=== PATIENT | female | born 1955 | race African-American/Black ===

== ENCOUNTER 2024-03-30 15:22 | Outpatient (CLI) | payer MEDICARE, SELFPAY ==
--- OUTSIDE RECORDS SUMMARY | 2024-03-30 15:26 | XMS_ITS | Patient Health Record ---
Author Organization [facility] Yamil martinez Billing Info Address [address] [place] [address] Support Name Relationship Address Phone Isidra Laguerre Guarantor Unknown [phone] Reason For Referral No Information Plan Of Treatment No Information Insurance Providers Payer Name Payer Address Payer Phone Subscriber Number Group Number Insured Name Patient Relationship to Insured Coverage Start Date Coverage End Date [employer] [facility] [place] [address] [address] [place], [place] [id number] Isidra Laguerre Self - patient is the insured
[2024-03-30 15:47] LABS: Basophils # 0.1 K/mm3 (0-0.2); Eosinophils # 0.3 K/mm3 (0.0-0.4); Eosinophils % 5.1 % (0.1-12.0); Hematocrit 34.5 % (37.0-47.0); Lymphocytes # 1.6 K/mm3 (0.7-4.5); Lymphocytes % 24.4 % (10-50); Mean Corpuscular HGB Conc 31.8 g/dL (31.8-35.4); Mean Corpuscular Volume 72.4 fl (81-99); Mean Platelet Volume 8.9 fl (7.4-10.4); Monocytes # 0.4 K/mm3 (0.1-1.0); Monocytes % 6.2 % (1.7-9.3); Neutrophils # 4.2 K/mm3 (1.8-7.8); Neutrophils % 63.3 % (37.0-80.0); Platelet Count 308 K/mm3 (142-424); Red Blood Count 4.76 M/mm3 (4.20-5.40); Red Cell Distribution Width 19.3 % (11.5-17.5); White Blood Count 6.7 K/mm3 (4.8-10.8)
[2024-03-30 16:34] LABS: Alanine Aminotransferase 13 U/L (12-78); Albumin Level 4.1 g/dl (3.5-5.0); Albumin/Globulin Ratio 1.6 (1.1-1.8); Alkaline Phosphatase 73 U/L (38-126); Anion Gap 12.3 mEq/L (5-15); Aspartate Amino Transferase 28 U/L (14-36); Bilirubin,Total 0.9 mg/dl (0.2-1.3); Blood Urea Nitrogen 14 mg/dl (7-17); Calcium 9.6 mg/dl (8.4-10.2); Carbon Dioxide 24 mmol/L (22.0-30.0); Chloride 109 mmol/L (98-107); Estimated Glomerular Filt Rate 83 ml/min (>60); GFR (African American) 100 ML/MIN (>60); Globulin 2.6 g/dL (1.3-3.2); Glucose 89 mg/dl (74-100); Magnesium 1.6 mg/dl (1.6-2.3); Phosphorous 4.5 mg/dl (2.5-4.5); Potassium 4.3 mmoL/L (3.5-5.1); Sodium 141 mmol/L (136-145); Total Protein,Serum 6.7 g/dl (6.3-8.2)
[2024-03-30 17:04] LABS: Thyroid Stimulating Hormone 3.26 uIU/mL (0.465-4.68)
[2024-03-30 17:23] LABS: Vitamin B12 319 pg/mL (239-931)
[2024-03-30 17:54] LABS: Iron 45 ug/dL (37-170)
[2024-03-30 18:03] LABS: Total Iron Binding Capacity 406 ug/dL (265-497)
[2024-03-31 09:19] LABS: HBsAg Screen Negative (Negative); HCV Ab Non Reactive (Non Reactive); Hep A Ab, IGM Negative (Negative); Hep B Core Ab, IgM Negative (Negative)
[2024-03-31 15:12] LABS: Endomysial IgA Antibody Negative (Negative)
[2024-03-31 16:28] LABS: Deamidated Gliadin Abs, IgA 3 units (0-19); Tissue Transglutaminase IgA Ab <2 U/mL (0-3); Tissue Transglutaminase IgG Ab <2 U/mL (0-5)
[2024-04-01 15:11] LABS: Deamidated Gliadin Abs, IgG 2 units (0-19)
[2024-04-02 09:20] LABS: Reticulin IgA Antibody Negative titer (Neg:<1:2.5)
[2024-04-11 16:04] LABS: Antinuclear Antibodies (ANA) NEGATIVE
== END 2024-03-30 23:59 | disposition home or self-care (01) ==
LOC: LAB 15:24
PROVIDERS: PCP Nurse Practitioner; Visit Provider Student in an Organized Health Care Education/Training Program
DX: K13.70 Unspecified lesions of oral mucosa (principal); D64.9 Anemia, unspecified; Z79.899 Other long term (current) drug therapy; R13.12 Dysphagia, oropharyngeal phase
CPT/HCPCS: 36415; 80053; 80074; 82607; 82746; 83516; 83540; 83550; 83735; 84100; 84443; 85025; 86038; 86225; 86235; 86255; 86256

== ENCOUNTER 2024-11-15 13:42 | Outpatient (CLI) | payer MEDICARE, SELFPAY ==
--- OUTSIDE RECORDS SUMMARY | 2024-11-15 13:45 | XMS_ITS | Clinical Summary ---
Author Organization [employer] Address [address] [place] [address] Care Team Providers Care Government Professor Name Role Phone Unavailable Primary Care Provider Unavailabl e Social History Tobacco Use Types Packs/Day Years Used Date Smoking Tobacco: Never Assessed Comments Unknown Sex and Gender Information Value Date Recorded Sex Assigned at Female 11/26/2021 5:53 PM CDT Legal Sex Female 5:53 PM CDT Gender Identity Female 11/26/2021 5:53 PM CDT Sexual Orientation Not on file Plan of Treatment Not on file
--- OUTSIDE RECORDS SUMMARY | 2024-11-15 13:45 | XMS_ITS | Clinical Summary ---
Author Organization [facility] Address [address] [place] [address] Care Team Providers Care Cementing Machine Operator Name Role Phone Cirilo Tracey MD Primary Care Provider [phone] Allergies No known active allergies Medications nitroglycerin (Nitrostat) 0.[address] 1 tablet (0.4 mg total) under the tongue every 5 (five) minutes if needed for chest pain. May repeat every 5 minutes for up to 3 doses. 100 tablet 11 2 Active diclofenac (Voltaren) 1 % topical gelIndications:Ch ronic pain of left ankle Apply 2-4 grams of gel up to three times daily as needed for pain control. 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 May repeat every 5 minutes for up to 3 doses. 300 Unspecified 11 4 Active Vibegron (Gemtesa) 75 MG tablet TAKE 1 TABLET EVERY DAY 90 tablet 4 Active cetirizine (ZyrTEC) 10 MG tabletIndications :Allergic rhinitis, unspecified seasonality, unspecified trigger Take 1 tablet (10 mg) by mouth 1 (one) time each day. 90 tablet 3 4 Active carvedilol (Coreg) 6.25 MG tablet Take 1 tablet (6.25 mg) by mouth 2 (two) times a day with meals. 60 tablet 11 4 Active lisinopril 20 MG tabletIndications :Essential hypertension Take 1 tablet (20 mg) by mouth 1 (one) time each day. 90 tablet 3 4 01/07/20 25 Active atorvastatin (Lipitor) 80 MG tablet Take 1 tablet (80 mg) by mouth every night. 90 tablet 3 4 Active aspirin 81 MG EC tablet Take 1 tablet (81 mg) by mouth 1 (one) time each day. 90 tablet 3 4 Active Active Problems Problem Noted Date Diagnosed Date At high risk for falls 08/17/2023 Hypersomnia, unspecified 03/04/2023 Hypothyroidism (acquired) 02/10/20232022 Type 2 diabetes mellitus without complications 0 12/15/2022 Pain in right knee 12/03/2022 Pain in right foot 12/03/2022 Pain in left knee 12/03/2022 Pain in left foot 12/03/2022 Urge incontinence 10/20/2022 Post-menopausal atrophic vaginitis 10/20/2022 Nocturia 10/20/2022 Urinary frequency 10/20/2022 Urinary urgency 10/20/2022 Presence of aortocoronary bypass graft 3 Old myocardial infarction 10/20/2022 Morbid (severe) obesity due to excess calories 0 10/20/2022 Pure hypercholesterolemia 09/12/2022 S/P CABG x 2 08/08/2022 Morbid obesity with body mass index (BMI) of 40. 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 06/17/2019 Gout 06/16/2019 TIA (transient ischemic attack) 05/15/2019 Posterior capsular opacifica tion visually significant, left eye 03/18/2019 Diabetes mellitus 03/02/2019 Diabetic maculopathy 01/25/2018 Status post left knee replacement 09/29/2017 Combined form of senile cataract of right eye Nuclear sclerotic cataract 09/09/2017 Polyneuropathy 07/28/2017 Obstructive sleep apnea 06/23/2017 GERD (gastroesophageal reflux disease) 7 Bursitis of hip 02/24/2017 Essential hypertension 02/20/2017 Amenorrhea, secondary 02/20/2017 Resolved Problems Problem Noted Date Diagnosed Date Resolved Date Abdominal pain 07/06/2023 07/09/2023 Overview (07/06/2023): Admit to sge PPI for possible gastritis Immunizations Immunization Administration Dates Next Due Influenza, high-dose, quadrivalent 06/05/2023, Influenza, injectable, quadr ivalent, preservative free 06/19/2020,03/02/2019,02/11/2018,02/20 Pneumococcal Polysaccharide PPV23 02/20/2017 Tdap 02/20/2017 Zoster, Recombinant 11/15/2021 Family History Medical History Relation Name Comments Colon cancer Father Arthritis Other 1 Asthma Other 2 Colon cancer Other 3 Kidney disease Other 4 Conversions - Other Other 5 malignan t neoplasm of female breast Obesity Other 6 Relation Name Status Comments Father Other 1 Other 2 Other 3 Other 4 Other 5 Other 6 Social History Tobacco Use Types Packs/Day Years Used Date Smoking Tobacco: Former Cigarettes Q uit: 2013 Passive Smoke Exposure: Never Smokeless Tobacco: Never Tobacco Cessation:Counseling Given: Not Answered Alcohol Use Standard Drinks/Week Comments Yes 0 (1 standard drink = 0.6 oz pur e alcohol) twice a month Humiliation, Afraid, Rape, and Kick questionnair e Answer Date Recorded Within the last year, have y ou been afraid of your partner or ex-partner? No 07/07/2023 Within the last year, have y ou been humiliated or emotionally abused in other ways by your partner or ex-partner? No Within the last year, have y ou been kicked, hit, slapped, or otherwise physically hurt by your partner or ex-partner? No 07/07/2023 Within the last year, have y ou been raped or forced to have any kind of sexual activity by your partner or ex-partner? No 07/07/2023 Social Connection and Isolation Panel Answer Date Recorded In a typical week, how many times do you talk on the phone with family, friends, or neighbors? More than three times a week 07/07/2023 How often do you get togethe r with friends or relatives? Twice a week 07/07/2023 How often do you attend chur or yazidi services? 1 to 4 times per year 07/07/2023 Do you belong to any clubs o r organizations such as oriental orthodox groups, unions, fraternal or athletic groups, or school groups? No 07/07/2023 How often do you attend meet ings of the clubs or organizations you belong to? 1 to 4 times per year 07/07/2023 Are you , , di vorced, , never , or living with a partner? 07/07/2023 AUDIT-C Answer Date Recorded Q1: How often do you have a drink containing alcohol? Never 07/07/2023 Q2: How many drinks containi ng alcohol do you have on a typical day when you are drinking? Patient does not drink Q3: How often do you have si x or more drinks on one occasion? Never 07/07/2023 PHQ-2 Answer Date Recorded Patient Health Questionnaire-2 Score 0 01/06/2024 [facility] - Occupational Stress Questionnaire Answer Date Recorded Do you feel stress - tense, restless, nervous, or anxious, or unable to sleep at night because your mind is troubled all the time - these days? Not at all 07/07/2023 Exercise Vital Sign Answer Date Recorde d On average, how many days pe r week do you engage in moderate to strenuous exercise (like a brisk walk)? 0 days 07/07/2023 On average, how many minutes do you engage in exercise at this level? 0 min 07/07/2023 Hunger Vital Sign Answer Date Recorded Within the past 12 months, y ou worried that your food would run out before you got the money to buy more. Never true 07/07/19 24 Within the past 12 months, t he food you bought just didn't last and you didn't have money to get more. Never true 07/07/2023 PRAPARE - Transportation Answer Date Re corded In the past 12 months, has l ack of transportation kept you from medical appointments or from getting medications? No 10/2023 In the past 12 months, has l ack of transportation kept you from meetings, work, or from getting things needed for daily living? No 07/07/2023 Housing Stability Vital Sign Answer Bran e Recorded In the last 12 months, was t here a time when you were not able to pay the mortgage or rent on time? No 07/07/2023 [address] of Places Lived in the Last Year Not on f ile 07/07/2023 In the last 12 months, was t here a time when you did not have a steady place to sleep or slept in a jail (including now)? No 07/07/2023 PHQ-9 Answer Date Recorded Patient Health Questionnaire-9 Score 8 08/17/2023 Safety and Environment Answer Date Dmitri rded Do you worry that your child may have been physically abused? Did not ask 06/05/2023 Do you worry that your child may have been sexua lly abused? Did not ask 06/05/2023 Are there any guns kept in o r around your home or where your child spends time? No 06/05/2023 Guns Unloaded or Locked Away Not on file 09/2023 Utilities Answer Date Recorded In the past 12 months has th e electric, gas, oil, or water company threatened to shut off services in your home? No 07/07/2023 PHQ-2A Answer Date Recorded Patient Health Questionnaire-2 Score 0 03/04/2023 Comments No Sex and Gender Information Value Date Recorded Sex Assigned at Not on file Legal Sex Female 8:49 PM EDT Gender Identity Not on file Sexual Orientation Not on file Last Filed Vital Signs Vital Sign Reading Time Taken Comments Blood Pressure 119/52 01/06/2024 2:51 PM EDT Pulse 55 01/06/2024 2:51 PM EDT Temperature 36.7 C (98.1 F) 08/17/2023 8:49 AM EDT Respiratory Rate 24 08/17/2023 8:49 AM EDT Oxygen Saturation 99% 01/06/2024 2:51 PM EDT Inhaled Oxygen Concentration - - Weight 92.2 kg (203 lb 4.2 oz) 01/06/2024 2:51 P M EDT Height 147.3 cm (4' 10 ) 01/06/2024 2:51 PM EDT Body Mass Index 42.48 01/06/2024 2:51 PM EDT Plan of Treatment Health Maintenance Due Date Last Done Comments [facility]-/Child/Adol SDOH Screenings 1955 Diabetes: Dental Exam 1963 [facility]- SDOH Screenings 1971 [facility]-Adult SDOH Screenings 1971 CT Colonography 1998 FIT-DNA 1998 FIT 1998 FOBT 1998 Sigmoidoscopy 1998 [facility]-RSV Vaccine: 60+ Years or (1 - Risk 60-74 years 1-dose series) 2013 [facility]-Pneumococcal Vaccine: 50+ Years (2 of 2 - PCV) 02/20/2018 02/20/2017 [facility]-Zoster Vaccines (2 of 2) 01/10/2022 11/15/2021 [facility]-Breast Cancer Screening 10/04/2022 0510/2020, 10/04/2020, 02/26/2017 [facility]-Medicare Annual Wellness (AWV) 10/14/2023 10/13/2022 [id number] Vaccine ( - season) 2024 [facility]-Diabetes: Hemoglobin A1C 02/14/2024, 06/05/2023, 10/13/2022, Additional history exists [facility]-Bone Density Scan 02/29/2024 02/28/2022, 022 [facility]-Depression Screening 01/05/2025 01/06/2024, 07/30 [facility]-Influenza Vaccine (Season Ended) 2025 06/05/2023, 03/18/2022, 06/19/2020, Additional history exists [facility]-DTaP,Tdap,and Td Vaccines (2 - Td or Tdap) 02/20/2027 02/20/2017 Colonoscopy 12/31/2032 12/31/2022, 06/25/2017 [facility]-Colorectal Cancer Screening 12/31/2032 [facility]-Hepatitis C Screening Completed 2023, 09/01/2018, 02/20/2017 [facility]-Obesity Intervention Completed 024, 08/26/2023, 08/17/2023, Additional history exists HPV Vaccines Aged Out No longer eligi ble based on patient's age to complete this topic [facility]-HIB Vaccines Aged Out No longer e ligible based on patient's age to complete this topic [facility]-Hepatitis A Vaccines Aged Out No longer eligible based on patient's age to complete this topic [facility]-IPV Vaccines Aged Out No longer e ligible based on patient's age to complete this topic [facility]-Rotavirus Vaccines Aged Out No lo nger eligible based on patient's age to complete this topic Procedures Procedure Name Priority Date/Time Associated Diagnosis Comments POCT GLYCOSYLATED HEMOGLOBIN (HGB A1C) Routine 08/17/2023 9:13 AM EDT Type 2 diabetes mellitus with other specified complication, without long-term current use of insulin (CMS/HCC) HEPATITIS C ANTIBODY W/REFLEX TO HCV QUANT PCR Routine 06/05/2023 4:01 PM EST Skin lesion COLONOSCOPY Routine 12/31/2022 4:57 PM EDT Encounter for screening DEXA BONE DENSITY Routine 02/28/2022 8:4 6 AM EDT Healthcare maintenance MAMMOGRAPHY BREAST SCREENING TOMOSYNTHESIS BILATERAL Routine 10/04/2020 12:00 AM EDT from Last 3 Months or Most Recently Relevant to Health Maintenance Results * POCT glycosylated hemoglobin (Hb A1C) docked device (08/17/2023 9:13 AM EDT) POCT Hemoglobin A1C 10.8 <5.7% Non-Diabet ic [facility] Kit Lot Number [id number] [facility] Kit Expiration Date 06/2025 [facility] Blood Venous blood specimen / Unknown 08/17/2023 9:13 AM EDT Cirilo Tracey MD POINT OF CARE TEST ENTER/ED IT ORDERABLES Final Result [facility] [address] [place] [id number] * Hepatitis C antibody (06/05/2023 4:01 PM EST) Hepatitis C Antibody Negative Negative 06/05/2023 6:57 PM EST [facility] Blood Venous blood specimen / Unknown Venipuncture / Unknown 06/05/2023 4:01 PM EST 06/05/2023 4:01 PM EST Cirilo Tracey MD LAB BLOOD ORDERABLES Final Result [facility] [address] [place] [address] * Colonoscopy (12/31/2022 4:57 PM EDT) Anatomical Region Laterality Modality Endoscopy Narrative 01/06/2023 8:19 PM EDT Table formatting from the original result was not included. Impression: 1 skin tag observed during perianal exam The cecum, ascending colon, transverse colon, descending colon, sigmoid colon and rectum appeared normal. Recommendation Other - Follow-up in GI clinic, as previously scheduled - Resume previous diet today - Resume previous activity tomorrow. - Monitor for signs of bleeding and if any vomiting of red blood, dark blood, clots, coffee ground-like material, stool with red blood, or dark black, tarry, sticky stools present immediately to your nearest emergency department and make them aware of this procedure. - Discharge home today, with escort. - Repeat colonoscopy in 10 years. Indication Colon cancer screening. Medications See anesthesia record for anesthesia administered medications. Staff Staff Role Filippo Ford MD Proceduralist José Miguel Michael MD Anesthesiologist [place] Endo Utility Worker [place] Carolyn Willson RN Endo Nurse Parth Arevalo CRNA CRNA Rosenau, Jens, MD Proceduralist Preprocedure A history and physical has been performed, and patient medication allergies have been reviewed. The patient's tolerance of previous anesthesia has been reviewed. The risks and benefits of the procedure and the sedation options and risks were discussed with the patient. All questions were answered and informed consent obtained. Details of the Procedure The patient underwent general anesthesia, which was administered by an anesthesia professional. The patient's blood pressure, heart rate, level of consciousness, respirations and oxygen were monitored throughout the procedure. A digital rectal exam was performed. A perianal exam was performed. The scope was introduced through the anus and advanced to the cecum. Retroflexion was performed in the rectum. The quality of bowel preparation was evaluated using the [place] Bowel Preparation Scale with scores of: right colon = 2, transverse colon = 2, left colon = 2. The total BBPS score was 6. Bowel prep was adequate. The patient experienced no blood loss. The procedure was not difficult. The patient tolerated the procedure well. There were no apparent adverse events. Attestation I was present for the entire procedure Events Procedure Events Event Event Time ENDO SCOPE IN TIME 12/31/2022 3:50 PM ENDO SCOPE OUT TIME 12/31/2022 3:57 PM ENDO SCOPE IN TIME 12/31/2022 4:00 PM ENDO SCOPE OUT TIME 12/31/2022 4:41 PM Specimens ID Type Source Tests Collected by Time A : bx Tissue Esophagus SURGICAL PATHOLOGY EXAM Max Jarvis MD 12/31/2022 1554 Findings 1 skin tag observed during perianal exam The cecum, ascending colon, transverse colon, descending colon, sigmoid colon and rectum appeared normal. Mariana Graham APRN, [facility] GI PROCEDURE ORDERABL ES Final Result * Dexa Bone Density (02/28/2022 8:46 AM EDT) Anatomical Region Laterality Modality L-spine Radiographic Soraida ging Narrative 02/28/2022 10:43 AM EDT [facility] - Nephrology, Bone & Mineral Metabolism [address] [place] [address] Patient Name: Isidra Laguerre Patient Age: 66 y.o. Procedure Information: BMD measurement was performed using [employer]ics[employer] DXA System manufactured by [employer]: BMD of the axial skeleton was assessed. Ordering Provider: Cirilo Tracey Date of exam: 02/28/22 Reason for Exam: Healthcare maintenance Comparison Study: None Findings/Impression: Patient has osteopenia by WHO criteria. Based off FRAX risk assessment (4.3% for major osteoporotic fracture and 0.7% for hip fracture over the next 10 years) patient does not meet criteria for treatment. Recommend follow-up DXA in 2 years. Cirilo Tracey MD IMG DXA PROCEDURES Final Re sult * Mammography Breast Screening Tomosynthesis Bilateral (10/04/2020 12:00 AM EDT) Anatomical Region Laterality Modality Breast Bilateral Mammography Impressions 10/04/2020 4:42 PM EDT BI-RADS Assessment Category 1: Negative. RECOMMENDATION: Routine screening mammogram in 1 year. COMMUNICATION: The results and recommendations will be sent to the patient in a printed lay language version of the imaging report. The mammogram was read with the assistance of CAD and tomosynthesis. Page 1 of 2 Patient Name:Isidra Laguerre : 1955 Age: 65 Gender: femaleDate of Service: 10/04/2020 eferring Phy:Cirilo Tracey, MDAccount: [phone] Dictated By: Terrance Falcon M.D. Verified By: Terrance Falcon M.D. on 10/04/2020 at 04:36:11 PM Page 2 of 2 Narrative 10/04/2020 4:42 PM EDT REQUESTING PHYSICIAN: CIRILO TRACEY REASON FOR EXAMINATION/PROCEDURE: screen EXAMINATION / PROCEDURE: Screening Mamm w/cad Oct 04 2020 - 16:20; GRACIA BILATERAL SCREENING Oct 04 2020 - 16:20; HISTORY: Patient is 65 years old and is seen for screening mammography. The patient has the following family history of breast cancer: sister, at age 20, breast cancer, specified type unknown. COMPARISON: The present examination has been compared to prior imaging studies perf ormed at [facility] on 03/20/2004 and 02/26/2017. FINDINGS: MAMMOGRAM There are scattered areas of fibroglandular density. No masses, suspicious microcalcifications or architectural distortion are evident. IMPRESSION: B I-RADS Assessment Category 1: Negative. RECOMMENDATION: Routine screening mammogram in 1 year. COMMUNICATION: The results and recommendations will be sent to the patient in a printed lay language version of the imaging report. The mammogram was read with the assistance of CAD and tomosynthesis. Read By: TERRANCE FALCON M.D. Signed By: TERRANCE FALCON M.D. on 10/04/2020 at 16::4:1: Verified by: TERRANCE FALCON M.D. on Oct 04 2020 4:41P Transcribed by: PSCB on 2020 4:41P Dictated by: TERRANCE FALCON M.D. on Oct 04 2020 4:41P Patient Name:Isidra Laguerre : 1955 Age: 65 Gender: femaleDate of Service: 10/04/2020 eferring Phy:Cirilo Tracey, [facility]ENTER[facility]ount: [phone] [place] [address] FINAL REPORT PROCEDURE: Tomosynthesis Bilateral Screening - bilateral , Screening Mammogram With Cad - bilateral HISTORY: Patient is 65 years old and is seen for screening mammography. The patient has the following family history of breast cancer: sister, at age 20, breast cancer, specified type unknown. COMPARISON: The present examination has been compared to prior imaging studies performed at [facility] on 03/20/2004 and 02/26/2017. FINDINGS: MAMMOGRAM There are scattered areas of fibroglandular density. No masses, suspicious microcalcifications or architectural distortion are evident. Procedure Note Terrance Falcon MD - 10/28/2020 REQUESTING PHYSICIAN: CIRILO TRACEY REASON FOR EXAMINATION/PROCEDURE: screen EXAMINATION / PROCEDURE: Screening Mamm w/cad Oct 04 2020 - 16:20; GRACIA BILATERAL SCREENING Oct 04 2020 - 16:20; HISTORY: Patient is 65 years old and is seen for screening mammography. The patient has the following family history of breast cancer: sister, at age 20, breast cancer, specified type unknown. COMPARISON: The present examination has been compared to prior imaging studies perf ormed at [facility] on 03/20/2004 and 02/26/2017. FINDINGS: MAMMOGRAM There are scattered areas of fibroglandular density. No masses, suspicious microcalcifications or architectural distortion are evident. IMPRESSION: B I-RADS Assessment Category 1: Negative. RECOMMENDATION: Routine screening mammogram in 1 year. COMMUNICATION: The results and recommendations will be sent to the patient in a printed lay language version of the imaging report. The mammogram was read with the assistance of CAD and tomosynthesis. Read By: TERRANCE FALCON M.D. Signed By: TERRANCE FALCON M.D. on 10/04/2020 at 16::4:1: Verified by: TERRANCE FALCON M.D. on Oct 04 2020 4:41P Transcribed by: PSCB on 2020 4:41P Dictated by: TERRANCE FALCON M.D. on Oct 04 2020 4:41P Patient Name:Isidra Laguerre : 1955 Age: 65 Gender: femaleDate of Service:10/04/2020 eferring Phy:Cirilo Tracey, [facility]ount: [phone] [place] [address] FINAL REPORT PROCEDURE: Tomosynthesis Bilateral Screening - bilateral , Screening Mammogram WithCad - bilateral HISTORY: Patient is 65 years old and is seen for screening mammography. Thepatient has the following family history of breast cancer: sister, at age 20, breast cancer, specified typeunknown. COMPARISON: The present examination has been compared to prior imaging studiesperformed at [facility] on 03/20/2004 and 02/26/2017. FINDINGS: MAMMOGRAM There are scattered areas of fibroglandular density. No masses, suspicious microcalcifications or architectural distortion areevident. IMPRESSION: BI-RADS Assessment Category 1: Negative. RECOMMENDATION: Routine screening mammogram in 1 year. COMMUNICATION: The results and recommendations will be sent to the patient in a printedlay language version of the imaging report. The mammogram was read with the assistance of CAD and tomosynthesis. Page 1 of 2 Patient Name:Isidra Laguerre : 1955 Age: 65 Gender: femaleDate of Service:10/04/2020 eferring Phy:Cirilo Tracey MDAccount: [phone] Dictated By: Terrance Falcon M.D. Verified By: Terrance Falcon M.D. on 10/04/2020 at 04:36:11 PM Page 2 of 2 Cirilo Tracey MD IMG BI PROCEDURES Final Res ult from Last 3 Months or Most Recently Relevant to Health Maintenance Insurance [employer] MEDICARE Advance Directives * Full Code (Latest Code Status on File) Date Activated Date Inactivated Comments 07/06/2023 2:23 PM 07/09/2023 4:48 PM Question Answer Comments Patient has decision-making capacity? Yes Care Teams Cementing Machine Operator Relationship Specialty Start Date End Date Cirilo Tracey MD [address] [place] [address] PCP - General 10/12/20
--- OUTSIDE RECORDS SUMMARY | 2024-11-15 13:45 | XMS_ITS | Encounter Summary ---
Author Organization Healthcare Address [address] [place] [address] Care Team Providers Care Waitstaff Captain Name Role Phone Cirilo Berrios MD Primary Care Provider [phone] Reason for Visit * Reason Comments Med Refill Encounter Details Date Type Department Care Team (Late st Contact Info) Description 01/15/2024 Refill [facility] [address] [place] [address] Suzanna Vásquez, [employer] SUPERVISOR, DNP [address] [place] [address] Social History Tobacco Use Types Packs/Day Years Used Date Smoking Tobacco: Former Cigarettes Q uit: 2014 Passive Smoke Exposure: Never Smokeless Tobacco: Never Alcohol Use Standard Drinks/Week Comments Yes 0 [...] week 07/07/2023 How often do you attend [facility] or rastafarian services? 1 to 4 times per year 07/07/2023 Do you belong to any clubs o r organizations such as latter-day groups, unions, fraternal or athletic groups, or [...] Recorded Patient Health Questionnaire-2 Score 0 01/06/2024 [facility] - Occupational Stress Questionnaire Answer Date Recorded [...] place to sleep or slept in a residential (including now)? No 07/07/2023 PHQ-9 Answer Date [...] on file Sexual Orientation Not on file documented as of this encounter Miscellaneous Notes * Telephone Encounter - Everardo Hooker, PharmD - 01/15/2024 7:39 AM EDT Gemtesa medication(s) has been denied per protocol due to: Refill requested too soon documented in this encounter Plan of Treatment Not on file documented as of this encounter Visit Diagnoses Not on filedocumented in this encounter Additional Health Concerns Assessment Noted Time PHQ-9 Depression Total Score: 8 08/17/19 24 8:52 AM EDT A fall risk assessment has been complete d for the patient 01/06/2024 2:52 PM EDT A Body Mass Index follow-up plan has been documented for the patient 01/06/2024 4:03 PM EDT documented as of this encounter Care Teams Waitstaff Captain Relationship Specialty Start Date End Date Cirilo Berrios MD [address] [place] [address] PCP - General 10/12/20 documented as of this encounter
--- OUTSIDE RECORDS SUMMARY | 2024-11-15 13:45 | XMS_ITS | Referral Summary ---
Author Organization [employer] [facility] Address [address] [place] [address] Care Team Providers Care City Administrator Name Role Phone Unavailable Primary Care Provider [...]
--- OUTSIDE RECORDS SUMMARY | 2024-11-15 13:45 | XMS_ITS | Encounter Summary ---
Author Organization [email or web address] [facility] Address [address] [place] [address] Care Team Providers Care Church Official Name Role Phone Unavailable Primary Care Provider Unavailabl e Encounter Details Date Type Department Care Team (Late st Contact Info) Description 07/06/2018 Transcribed Document [facility] [facility] [address] [place] [address] ProviderAdilson MD [address] [place] [address] Social History Tobacco Use Types Packs/Day Years Used Date Smoking Tobacco: Never Assessed Comments Unknown Sex and Gender Information Value Date Recorded Sex Assigned at Female 11/26/2021 5:53 PM CDT Legal Sex Female 5:53 PM CDT Gender Identity Female 11/26/2021 5:53 PM CDT Sexual Orientation Not on file documented as of this encounter Miscellaneous Notes * Cerner Conversion Note - Adilson Davila MD - 07/06/2018 2:46 PM RESIDENT CARE SPEC DATE OF SERVICE: 07/06/2018 SLEEP MEDICINE FOLLOWUP PRIMARY PROVIDER: Cirilo Berrios MD HISTORY: Patient is here to follow up obstructive sleep apnea. I last saw her in October 2017, at which point she started auto PAP and said she felt better, but needed to work on compliance. Since that time, she has had other illness and failed to come in for followup as scheduled. She is back now saying that she has had problems with the machine. She continues to try to use it. A download reveals usage 10 of the last 30 days, over 4 hours on 20% of days, average 3 hours 53 minutes on days used. The AHI is 3.5 with a mean pressure of 7.7 cm. The patient reports that her problem has been nasal congestion. She cannot breathe through her nose when she is congested and finds that the mask is in general difficult it is to use. Also, she has not kept supplies up. She got her machine from a new DME company and apparently has co-pays and deductible expenses and she insists that her previous DME company did not require any pzr-yd-kewexd expenses. The net result is that she has not kept her equipment up-to-date and she says her filters are old and probably causing congestion. She is little frustrated and says she cannot even afford filters. Her [place] score is 2/24. PHYSICAL EXAMINATION: VITAL SIGNS: Weight 210, blood pressure 140/78, pulse 91, oxygen saturation 98%. GENERAL: She was awake, alert, cooperative. She did seem a little tense and little fatigued. CRANIAL NERVES: Speech clear. Eye movements conjugate. Hearing intact. Facial movements symmetric. MOTOR: Arm movements normal. GAIT: Normal. IMPRESSION: Obstructive sleep apnea--the patient has moderate obstructive sleep apnea and is still struggling to use the machine. She is frustrated because she has rkd-pf-gtuzrx expenses with her current DME company and insists that she did not have out of pocket expenses with her previous DME company. I told her this is very surprising because all the DME companies have the same contracts with insurance companies (I think). She insists that she is correct, however, and wants to switch companies. PLAN: 1. Continue auto PAP 11/14. 2. If she can find the name of her previous DME company, she will send it to us and we will send orders for her to get her supplies there. If not, she will have to continue getting her supplies from [email or web address]. 3. We explained her to how to use her humidifier, which should help prevent waking up with nasal congestion every morning. 4. I will see her back in 10-12 weeks. Jin Osei M.D. Dict: 07/06/2018 14:46:51 Trans: 07/06/2018 23:24:50 CC1: Jin Osei M.D. CC2: Cirilo Berrios MD documented in this encounter Plan of Treatment Not on file documented as of this encounter Visit Diagnoses Not on filedocumented in this encounter
== END 2024-11-15 23:59 | disposition home or self-care (01) ==
LOC: RT 13:43
PROVIDERS: PCP Nurse Practitioner; Visit Provider Nurse Practitioner
DX: R00.2 Palpitations (principal)
CPT/HCPCS: 93225; 93227

== ENCOUNTER 2024-11-17 09:42 | Outpatient (POV) | payer MEDICARE, SELFPAY ==
--- OUTSIDE RECORDS SUMMARY | 2024-11-17 09:45 | XMS_ITS | Clinical Summary ---
Author Organization [facility] Address [address] [place] [address] Care Team Providers Care Finish Painter Name Role Phone Unavailable Primary Care Provider [...]
--- OUTSIDE RECORDS SUMMARY | 2024-11-17 09:45 | XMS_ITS | Encounter Summary ---
Author Organization [facility] [facility] Address [address] [place] [address] Care Team Providers Care Drug And Alcohol Treatment Specialist Name Role Phone Unavailable Primary Care Provider Unavailabl e Encounter Details Date Type Department Care Team (Late st Contact Info) Description 07/06/2018 Transcribed Document [facility] [place] [facility] [address] [place] [address] ProviderAdilson MD [address] [place] [address] Social History Tobacco Use Types Packs/Day Years [...] Adilson Davila MD - 07/06/2018 2:46 PM CNC MILL AND LATHE OPERATOR DATE OF SERVICE: 07/06/2018 SLEEP MEDICINE FOLLOWUP [...] previous DME company did not require any kxi-ad-fzlipt expenses. The net result is that she has not kept her equipment up-to-date and she says her filters are old and probably causing congestion. She is little frustrated and says she cannot even afford filters. Her [place] score is 2/24. PHYSICAL EXAMINATION: VITAL SIGNS: [...] machine. She is frustrated because she has umq-zt-kwredt expenses with her current DME company and [...] have to continue getting her supplies from [employer]. 3. We explained her to how to [...]
--- OUTSIDE RECORDS SUMMARY | 2024-11-17 09:46 | XMS_ITS | Clinical Summary ---
Author Organization [facility] Address [address] [place] [address] Care Team Providers Care Circle Shear Operator Name Role Phone Philly Lyons APRN Primary Care Provider [phone] Allergies No known active allergies Medications albuterol (PROVENTIL) (2.5 MG/3ML) 0.083% nebulizer solution Take 2.5 mg by nebulization Every 4 (Four) Hours As Needed. 12/21/19 23 Active atorvastatin (LIPITOR) 80 MG tablet Take 1 tablet by mouth Daily. 12/04/19 23 Active carvedilol (COREG) 3.125 MG tablet Take 1 tablet by mouth 2 (Two) Times a Day With Meals. 12/26/19 23 Active aspirin 81 MG EC tablet Take 1 tablet by mouth Daily. 01/07/20 24 Active nitroglycerin (NITROSTAT) 0.[address] 1 tablet under the tongue Every 5 (Five) Minutes As Needed for Chest Pain (if chestt pain continues after 2 doses, go to ER or call 911). 08/17/19 24 Active Blood Glucose Monitoring Suppl (ONE TOUCH ULTRA 2) w/Device kitIndications:Type 2 diabetes mellitus with diabetic autonomic neuropathy, with long-term current use of insulin Use 1 each 6 (Six) Times a Week. As directed 1 each 02/03/20 24 Active glucose blood test stripIndications:Ty pe 2 diabetes mellitus with diabetic autonomic neuropathy, with long-term current use of insulin Use as instructed 200 each 3 02/03/20 24 Active Magic Mouthwash Oral Suspension (diphenhydrAMINE HCl - aluminum & magnesium hydroxide-simethico ne - lidocaine - nystatin)Indication s:Stomatitis Swish and spit 5 mL Every 6 (Six) Hours As Needed for Stomatitis. 60 mL 1 02/17/20 Active levothyroxine (SYNTHROID, LEVOTHROID) 50 MCG tablet Take 1 tablet by mouth Daily. 03/24/20 Active Lidocaine Viscous HCl (XYLOCAINE) 2 % solution MIX EQUAL PARTS NYSTATIN, LIDOCAINE, MAALOX OR MYLANTA. SWISH AND SPIT OUT 5 ML BY MOUTH TWICE DAILY NEEDED DIRECTED. CONTINUE USING NYSTATIN BEFORE 03/11/20 Active ondansetron ODT (ZOFRAN-ODT) [address] 1 tablet on the tongue As Needed. 03/12/20 Active spironolactone (ALDACTONE) 25 MG tabletIndications:C oronary artery disease of [place] artery of [place] heart with stable angina pectoris,Chronic HFrEF (heart failure with reduced ejection fraction) Take 1 tablet by mouth Daily. 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 90 tablet 3 03/28/20 24 Active vitamin D3 125 MCG (5000 UT) capsule capsule Take 1 capsule by mouth Daily. Active valsartan (DIOVAN) 80 MG tabletIndications:C hronic stable angina,Coronary artery disease of [place] artery of [place] heart with stable angina pectoris,Chronic HFrEF (heart failure with reduced ejection fraction),Atheroscl erosis of chickaloon coronary artery of chickal[place] heart without angina pectoris,Hypertensi on, unspecified type Take 1 tablet by mouth Daily. 90 tablet 3 04/25/20 24 Active metFORMIN (GLUCOPHAGE) 500 MG tablet TAKE 1 TABLET BY MOUTH TWICE DAILY WITH MEALS 180 tablet 05/02/20 24 Active EQ Allergy Relief, Cetirizine, 10 MG tablet Take 1 tablet by mouth once daily 90 tablet 05/02/20 24 Active fluticasone (FLONASE) 50 MCG/ACT nasal sprayIndications:Se asonal allergies USE 2 SPRAY(S) IN EACH NOSTRIL DIRECTED ONCE DAILY 16 g 4 05/23/20 24 Active ferrous gluconate (FERGON) 324 MG tabletIndications:I erica deficiency anemia following bariatric surgery Take 1 tablet by mouth once daily with breakfast 30 tablet 09/23/19 25 Active Active Problems Problem Noted Date Diagnosed Date Iron deficiency anemia following bariatric surge ry 02/25/2024 Assessment & Plan (03/24/2024 7:10 PM EDT): History of JASON secondary to bariatric surgery Blood work from previous visit shows current iron deficiency Reviewed lab results with patient today Patient has previously taken iron supplementation Discussed risks and side effects of supplementation and iron-rich diet Plan: Iron supplementation, see orders Will recheck iron profile The side effects of iron are discussed, primarily GI in type, such as cramping, constipation, black stools. Start with low dose of ferrous sulfate 325 mgm once daily Patient agrees to follow-up in 4 weeks unless otherwise indicated. If patient tolerating iron supplementation, will consider increased dosage going forward and recheck iron profile in 3 months History of anemia due to vitamin B12 deficiency 02/17/2024 Assessment & Plan (03/06/2024 10:05 PM EDT): B12 and iron profile was collected today No change in treatment regimen pending lab results Annual physical exam 02/03/2024 Assessment & Plan (02/03/2024 5:08 PM EDT): Isidra Laguerre presents today to establish care with a new provider and complete annual wellness exam. History of multiple comorbidities including CVD, DM 2, HTN, GERD, CAMERON and others Isidra's main concerns today are: Establishing PCP and oral Suma Available medical records reviewed with them today. Patient and appropriate diagnostic testing ordered. Current medication refills provided per patient request. Patient agrees to follow-up in 2 weeks to discuss diagnostic testing, address health goals, and address care gaps unless otherwise indicated. Stomatitis 02/03/2024 Assessment & Plan (03/24/2024 6:37 PM EDT): 02/25/2024 Patient reports stomatitis has improved and is almost completely resolved She has completed Magic mouthwash No change in treatment regimen Will follow-up as needed Assessment & Plan (02/18/2024 9:02 AM EDT): >>ASSESSMENT AND PLAN FOR ORAL PHARYNGEAL CANDIDIASIS WRITTEN ON 02/03/2024 5:06 PM BY ETHEL LAGUERRE APRN Oral thrush Patient previously treated with Magic mouthwash Nystatin swish and swallow, see orders Baseline lab work today and patient to return in 2 weeks for follow-up, we will evaluate oral Suma at follow-up visit unless otherwise indicated. 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 02/10/2023 Overview (02/10/2023): PCI, CABG x 2 (2002) at [facility] - data deficit CAMERON (obstructive sleep apnea) 02/10/2023 Overview (02/10/2023): Noncompliant with CPAP Hypothyroidism (acquired) 02/10/2023 Type 2 diabetes mellitus, [facility] long-term current use of insulin 02/10/2023 Overview (02/03/2024): HgbA1c Goal: < 7% Assessment & Plan (02/03/2024 5:07 PM EDT): Patient is not checking blood sugars Currently taking only Jardiance for diabetes [id number] hemoglobin A1c today is 7.6% Microalbumin is 20 mg/dL Patient previously on metformin and states she is unsure why it was stopped Denies intolerance to metformin Restart metformin 500 mg twice daily with meals Patient to follow-up in 2 weeks to review lab work and discuss health goals Morbid obesity with BMI of 40.0-44.9, adult 01/30 Essential hypertension 02/10/2023 Increased frequency of urination 10/20/2022 Morbid (severe) obesity due to excess calories 0 10/20/2022 Nocturia 10/20/2022 Old myocardial infarction 10/20/2022 Post-menopausal atrophic vaginitis 10/20/2022 Presence of aortocoronary bypass graft Pure hypercholesterolemia 09/12/2022 Interstitial lung disease 08/09/2022 S/P CABG x 2 08/08/2022 Assessment & Plan (03/24/2024 7:28 PM EDT): Patient complaining of intermittent right arm and shoulder pain with some radiation to her chest Symptoms have been off and on approximately 2 weeks ER evaluation on 02/15/2024 -referred to cardiology Denies shortness of breath, diaphoresis, or other constitutional symptoms -no s/sx of distress EKG abnormal, similar to previous Plan: EKG today to r/o ischemia Pt referred to her city library director for f/u Patient verbalizes understanding if she develops worsening chest pain, shortness of breath or other alarm symptoms she should call 911 or go to the ER as appropriate. Fatigue 11/18/2021 Vaginal fibroids 01/13/2020 Cardiomyopathy 11/29/2019 Gout 05/15/2019 Hyperlipidemia 05/15/2019 Posterior capsular opacifica tion visually significant, left eye 03/18/2019 Dyspnea on exertion 01/27/2019 Hypertensive urgency 01/27/2019 Diabetic maculopathy 01/25/2018 Combined form of senile cataract of right eye Nuclear sclerotic cataract 09/09/2017 Polyneuropathy 07/28/2017 GERD (gastroesophageal reflux disease) 7 Bursitis of hip 02/24/2017 Low back pain 02/01/2016 Overview (02/03/2024): Onset Date: Resolved Problems Problem Noted Date Diagnosed Date Resolved Date Shoulder strain 04/10/2023 02/03/2024 Urinary urgency 10/20/2022 02/03/2024 Urge incontinence 10/20/2022 02/03/2024 Malaise 11/18/2021 02/18/2024 COVID-19 11/18/2021 02/18/2024 Lumbar stenosis with neurogenic claudication 0 02/18/2024 TIA (transient ischemic attack) 05/15/2019 02/03/2024 Status post left knee replacement 09/29/2017 02/03/2024 Encounters Date Type Department Care Team Description 09/26/2024 Telephone [facility] PRIMARY CARE 4 [facility] [place] [address] Philly Lyons APRN 09/22/2024 Refill [facility] PRIMARY CARE 4 [facility] [place] [address] Ethel Laguerre, POLICE ARTIST Iron deficiency anemia following bariatric surgery from Last 3 Months Immunizations Immunization Administration Dates Next Due Fluzone (or Fluarix & Flulav al for VFC) >6mos 06/19/2020,03/02/2019,02/11/2018,02/20 Fluzone High-Dose 65+yrs 06/05/2023,03/18/2022 Pneumococcal Polysaccharide (PPSV23) 02/20/2017 Shingrix 11/15/2021 Tdap 02/20/2017 Family History Medical History Relation Name Comments Heart attack Father Lasha Laguerre Kidney disease Father Lasha Laguerre Asthma Mother Keyonna Laguerre Heart failure Paternal Grandfather Keyonna Laguerre Relation Name Status Comments Father Lasha Laguerre Mother Keyonna Laguerre Paternal Grandfather Keyonna Laguerre Social History Tobacco Use Types Packs/Day Years Used Date Smoking Tobacco: Former Cigarettes 0.3 40.8 0 10/31/1972 - 08/18/2013 Passive Smoke Exposure: Past Smokeless Tobacco: Never Alcohol Use Standard Drinks/Week Comments Never 4 (1 standard drink = 0.6 oz pur e alcohol) Abuse Screen Answer Date Recorded Feels Unsafe at Home or Work/School no 02/10/2023 Feels Threatened by Someone no 01/30 Does Anyone Try to Keep You From Having Contact with Others or Doing Things Outside Your Home? no 02/10/2023 Physical Signs of Abuse Present no 02/10/2023 PHQ-2 Answer Date Recorded Retired PHQ-9: Brief Depression Severity Measure Score 0 02/03/2024 Comments Unknown Sex and Gender Information Value Date Recorded Sex Assigned at Not on file Legal Sex Female 11:07 AM EDT Gender Identity Not on file Sexual Orientation Not on file Last Filed Vital Signs Vital Sign Reading Time Taken Comments Blood Pressure 124/78 04/25/2024 2:26 PM EST Pulse 72 04/25/2024 2:26 PM EST Temperature 36.9 C (98.4 F) 02/10/2023 10:54 AM EDT Respiratory Rate 16 02/25/2024 2:37 PM EDT Oxygen Saturation 97% 04/25/2024 2:26 PM EST Inhaled Oxygen Concentration - - Weight 86.2 kg (190 lb) 04/25/2024 2:26 PM EST Height 147.1 cm (4' 9.9 ) 04/25/2024 2:26 PM EST Body Mass Index 39.85 04/25/2024 2:26 PM EST Plan of Treatment Health Maintenance Due Date Last Done Comments DIABETIC EYE EXAM 1965 DIABETIC FOOT EXAM 1965 URINE MICROALBUMIN-CREATININ E RATIO (uACR) 1965 COLOGUARD 1998 COLON CANCER SCREENING 5 YEA R SIGMOIDOSCOPY 1998 CT COLONOGRAPHY 1998 FECAL OCCULT BLOOD TEST 1998 FIT Testing (1 year) 1998 Pneumococcal Vaccine 50+ (2 of 2 - PCV) 02/20/2018 02/20/2017 ZOSTER VACCINE (2 of 2) 01/10/2022 11/15/2021 MAMMOGRAM 10/04/2022 10/04/2020, 05/0 10/2020, 02/26/2017 ANNUAL WELLNESS VISIT 01/19/2024 10/13/2022 COVID-19 Vaccine (1 - 2023-2 5 season) 2024 DXA SCAN 02/29/2024 02/28/2022, 02/28/2022 HEMOGLOBIN A1C 08/02/2024 02/03/2024, 07/30, 08/17/2023, Additional history exists INFLUENZA VACCINE 11/29/2024 06/05/2023, , 06/19/2020, Additional history exists LIPID PANEL 03/31/2025 03/31/2024, 08/2023, 07/29/2023, Additional history exists TDAP/TD VACCINES (2 - Td or Tdap) 02/20/2027 017 COLONOSCOPY 12/31/2032 12/31/2022, 07/2022, 06/25/2017 COLORECTAL CANCER SCREENING 12/31/2032 HEPATITIS C SCREENING Completed 06/05/2023, 024 Procedures Procedure Name Priority Date/Time Associated Diagnosis Comments LIPID PANEL Routine 03/31/2024 9:31 AM EDT Coronary artery disease of [place] artery of [place] heart with stable angina pectoris Chronic HFrEF (heart failure with reduced ejection fraction) POCT GLYCOSYLATED HEMOGLOBIN (HGB A1C) Routine 02/03/2024 2:15 PM EDT 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, without long-term current use of insulin, unspecified retinopathy severity from Last 3 Months or Most Recently Relevant to Health Maintenance Results * (ABNORMAL) Lipid Panel (03/31/2024 9:31 AM EDT) Total Cholesterol 186 0 - 200 mg/dL 03/31/2024 7:09 PM EDT [facility] Triglycerides 101 0 - 150 mg/dL 03/31/2024 7:09 PM EDT [facility] HDL Cholesterol 58 40 - 60 mg/dL 03/31/2024 7:09 PM EDT [facility] LDL Cholesterol 110(H) 0 - 100 mg/dL 03/31/2024 7:09 PM EDT [facility] VLDL Cholesterol 18 5 - 40 mg/dL 03/31/2024 7:09 PM T [facility] LDL/HDL Ratio 1.86 03/31/2024 7:09 PM EDT [facility] Blood Venipuncture / Unknown 03/31/2024 9:31 AM EDT 03/31/2024 9:32 AM EDT [facility] - 03/31/2024 7:09 PM EDT Cholesterol Reference Ranges (U.S. Department of Health and Human Services ATP III Classifications) Desirable <200 mg/dL Borderline High 200-239 mg/dL High Risk >240 mg/dL Triglyceride Reference Ranges (U.S. Department of Health and Human Services ATP III Classifications) Normal <150 mg/dL Borderline High 150-199 mg/dL High 200-499 mg/dL Very High >500 mg/dL HDL Reference Ranges (U.S. Department of Health and Human Services ATP III Classifications) Low <40 mg/dl (major risk factor for CHD) High >60 mg/dl ('negative' risk factor for CHD) LDL Reference Ranges (U.S. Department of Health and Human Services ATP III Classifications) Optimal <100 mg/dL Near Optimal 100-129 mg/dL Borderline High 130-159 mg/dL High 160-189 mg/dL Very High >189 mg/dL Joe Vallejo MD LAB BLOOD ORDERABLES Fi nal Result Performing Organization Address [facility]/ZIP Co de Phone Number [facility]
[address] [place] [address], * (ABNORMAL) POC Glycosylated Hemoglobin (Hb A1C) (02/03/2024 2:15 PM EDT) Hemoglobin A1C 7.6(A) 4.5 - 5.7 % [facility] Lot Number [id number] [facility] Expiration Date 09/02/2025 [facility] Blood 02/03/2024 2:15 PM EDT Ethel Laguerre APRN POINT OF CARE TEST ABI ORTIZ Final Result Performing Organization Address [facility]/ZIP Co de Phone Number [facility]
[address] [place] [address], from Last 3 Months or Most Recently Relevant to Health Maintenance Insurance [employer] HMO Care Teams Circle Shear Operator Relationship Specialty Start Date End Date Philly Lyons APRN [address] [place] [address] PCP - General Nurse Practitioner 03/28/24
--- OUTSIDE RECORDS SUMMARY | 2024-11-17 09:46 | XMS_ITS | Clinical Summary ---
Author Organization [facility] Address [address] [place] [address] Care Team Providers Care Acute Care Nursing Assistant Name Role Phone Cirilo Tracey MD Primary Care Provider [phone] Allergies No known active allergies Medications nitroglycerin [...] MG SL tabletIndications :Coronary artery disease involving [place] coronary artery of [place] heart with angina pectoris (CMS/HCC) Place 1 [...] Asthma 11/15/2019 Coronary artery disease invo lving [place] heart with angina pectoris 06/17/2019 Gout 06/16/2019 [...] How often do you attend chur or anabaptist services? 1 to 4 times per year 07/07/2023 Do you belong to any clubs o r organizations such as orthodoxy groups, unions, fraternal or athletic groups, or [...] Recorded Patient Health Questionnaire-2 Score 0 01/06/2024 [facility] - Occupational Stress Questionnaire Answer [...] place to sleep or slept in a halfway (including now)? No 07/07/2023 PHQ-9 Answer Date [...] 02/26/2017 [facility]-Medicare Annual Wellness (AWV) 10/14/2023 10/13/2022 [id number] Vaccine ( - season) 2024 [facility]-Diabetes: Hemoglobin [...] POCT Hemoglobin A1C 10.8 <5.7% Non-Diabet ic [facility] Kit Lot Number [id number] [facility] Kit Expiration Date 06/[address] [facility] Blood Venous blood specimen / Unknown 08/17/2023 9:13 AM EDT Cirilo Tracey MD POINT OF CARE TEST ENTER/ED IT ORDERABLES Final Result [facility] [address] [place] [address] * Hepatitis C antibody (06/05/2023 4:01 PM EST) Hepatitis C Antibody Negative Negative 06/05/2023 6:57 PM EST [facility] Blood Venous blood specimen / Unknown Venipuncture / Unknown 06/05/2023 4:01 PM EST 06/05/2023 4:01 PM EST Cirilo Tracey MD LAB BLOOD ORDERABLES Final Result [facility] [address] [place] [address] * Colonoscopy (12/31/2022 4:57 PM EDT) Anatomical [...] Miguel Michael MD Anesthesiologist [place] Endo Ski Maker Carolyn Willson RN Endo Nurse Parth Arevalo [...] of bowel preparation was evaluated using the [place] Bowel Preparation Scale with scores of: right [...] Soraida ging Narrative 02/28/2022 10:43 AM EDT [facility] - Nephrology, Bone & Mineral Metabolism [address] [place] [address] Patient Name: Isidra Laguerre Patient Age: 66 y.o. Procedure Information: BMD measurement was performed using [employer] DXA System manufactured by [employer] Technique: BMD of the axial skeleton was [...] 65 Gender: femaleDate of Service: 10/04/2020 eferring Phy:Ciirlo Tracey, MDAccount: [phone] Dictated By: Terrance Falcon M.D. Verified By: [...] femaleDate of Service: 10/04/2020 eferring Phy:Cirilo Tracey, [facility] [phone] [place] [address] FINAL REPORT PROCEDURE: Tomosynthesis Bilateral Screening - [...] Gender: femaleDate of Service:10/04/2020 eferring Phy:Cirilo Tracey, [facility]: [phone] [place] [address] FINAL REPORT PROCEDURE: Tomosynthesis Bilateral Screening - [...] femaleDate of Service:10/04/2020 eferring Phy:Cirilo Tracey MDAccount: [phone] Dictated By: Terrance Falcon M.D. Verified By: [...] Patient has decision-making capacity? Yes Care Teams Acute Care Nursing Assistant Relationship Specialty Start Date End Date Cirilo Tracey MD [address] [place] [address] PCP - General 10/12/20
--- OUTSIDE RECORDS SUMMARY | 2024-11-17 09:46 | XMS_ITS | Encounter Summary ---
Author Organization [facility] Address [address] [place] [address] Care Team Providers Care News Technical Director Name Role Phone Cirilo Berrios MD Primary Care Provider [phone] Reason for Visit * Reason Comments Med Refill Encounter Details Date Type Department Care Team (Late st Contact Info) Description 01/15/2024 Refill [facility] [address] [place] [address] Suzanna Vásquez, MANAGER CREDIT RISK, DNP [address] [place] [address] Social History Tobacco Use Types [...] week 07/07/2023 How often do you attend [facility] or rastafari services? 1 to 4 times per year 07/07/2023 Do you belong to any clubs o r organizations such as scientology groups, unions, fraternal or athletic groups, or [...] Recorded Patient Health Questionnaire-2 Score 0 01/06/2024 [facility] - Occupational [...] place to sleep or slept in a penitentiary (including now)? No 07/07/2023 PHQ-9 Answer Date [...] documented as of this encounter Care Teams News Technical Director Relationship Specialty Start Date End Date Cirilo Berrios MD [address] [place] [address] PCP - General 10/12/20 documented as of this encounter
--- OUTSIDE RECORDS SUMMARY | 2024-11-17 09:47 | XMS_ITS | Patient Health Record ---
Author Organization [facility] Yamil martinez Billing Info Address [address] [place] [id number] Support Name Relationship Address Phone Isidra Laguerre Guarantor Unknown [phone] Reason For Referral No Information Plan Of Treatment No Information Insurance Providers Payer Name Payer Address Payer Phone Subscriber Number Group Number Insured Name Patient Relationship to Insured Coverage Start Date Coverage End Date [employer] [facility] [place] [address] [address] [place], [place] [id number] [phone] [id number] Isidra Laguerre Self - patient is the insured
--- OUTSIDE RECORDS SUMMARY | 2024-11-17 09:47 | XMS_ITS | Referral Summary ---
Author Organization [employer] [facility] [employer] Address [address] [place] [address] Care Team Providers Care Bobbin Cleaner Hand Name Role Phone Unavailable Primary Care Provider [...]
--- OUTSIDE RECORDS SUMMARY | 2024-11-17 09:47 | XMS_ITS | Encounter Summary ---
[facility] Address [address] [place] [address] Care Team Providers Care Development Lead Name Role Phone Philly Lyons APRN Primary Care Provider [phone] Reason for Visit * Reason Comments Med Refill Encounter Details Date Type Department Care Team (Late st Contact Info) Description 09/22/2024 Refill [facility] [address] [place] [address] Ethel Laguerre APRN [address] [place] [address] Iron deficiency anemia following bariatric surgery Social History Tobacco Use Types Packs/Day Years [...] on file documented as of this encounter Plan of Treatment Not on file documented as of this encounter Visit Diagnoses Diagnosis Iron deficiency anemia following bariatric surgery documented in this encounter Care Teams Development Lead Relationship Specialty Start Date End Date Philly Lyons APRN [address] [place] [address] PCP - General Nurse Practitioner 03/28/24 documented as of this encounter
--- OUTSIDE RECORDS SUMMARY | 2024-11-17 09:47 | XMS_ITS | Encounter Summary ---
Author Organization [facility] Address [address] [place] [id number] Care Team Providers Care Plumbing Mechanic Name Role Phone Philly Lyons APRN Primary Care Provider [phone] Encounter Details Date Type Department Care Team (Late st Contact Info) Description 09/26/2024 Telephone [facility] [address] [place] [address] Philly Lyons, DEEPA [address] [place] [address] Social History Tobacco Use Types Packs/Day Years [...] encounter Miscellaneous Notes * Telephone Encounter - Yakelin Sánchez RegSched Rep - 09/26/2024 11:11 AM EDT HUB TO RELAY ATTEMPTED TO CONTACT PT IN REGARDS TO A MESSAGE, UNABLE TO CONTACT PT, NOT A WORKING NUMBER. IF PT IS STILL AN SAMUEL LAGUERRE PT, SHE WILL NEED TO BE SEEN IN OFFICE FOR AN APPT BEFORE ANYMORE MEDICATION REFILLS CN BE GIVEN, PLEASE SCHEDULE AT PCP NEXT AVAILABLE documented in this encounter Plan of Treatment Not on file documented as of this encounter Visit Diagnoses Not on filedocumented in this encounter Care Teams Plumbing Mechanic Relationship Specialty Start Date End Date Philly Lyons APRN [address] [place] [address] PCP - General Nurse Practitioner 03/28/24 documented as of this encounter
--- OUTSIDE RECORDS SUMMARY | 2024-11-17 09:47 | XMS_ITS | Data Portability ---
Author Organization [facility] SERJIO PeraltaS [place] CLOSED Address [address] [place] [address] Care Team Providers Care Numerical Control Router Operator Name Role Phone IGNACIO PRECIADO Primary Care Provider [phone] MIN, RBADLEY Boxing Promoter Assessment No assessment recorded. Plan of Treatment Reminders Order Date Submit Date Provider Last Modified By Organization Details Last Modified Time Details Appointments None recorded. Lab surgical pathology study 2024 025 [facility], [address] [place] [address], [phone], 5 18:20:05 Mycobacter ium tuberculos is stimulated gamma interferon , qual, blood 2024 025 [email or web address] 3 [facility], [address] [place] [address] Juventino Lizama, [place], [address], 5 12:37:16 hepatic function panel, serum 2024 025 RADOM [facility], [address] [place] [address] Juventino Lizama, [place], [address], 5 15:39:30 JERRY (antinucle ar antibodies ) titer + pattern, ifa, serum [address] [place] [address] Laboratory, [address] [place] [address], [id number], 5 08:33:13 sjogren antibody panel, serum [address] Laboratory, [address] [place] [address], [address], 5 08:33:13 C3 (complemen t), serum or plasma [address], [address] [place] [address], [address], 5 08:33:13 C4 (complemen t), serum or plasma [address] [place] [address], [address] [place] [address], [address], 5 08:33:13 protein electropho resis panel, serum or plasma [address] [place] [address], [address] [place] [address], [address], 5 08:33:13 rf (rheumatoi d factor), serum [address] [place] [address], [address] [place] [address], [address], 5 08:33:13 dsDNA Ab, serum [address] [place] [address], [address] [place] [address], [address], 5 08:33:14 laguerre Ab + clubhouse attendant Ab, serum [address] [place] [address], [address] [place] [address], [address], 5 08:33:14 vitamin B12, serum [address] [place] [address], [address] [place] [address], [address], 5 08:33:14 folate, RBC 2024 025 [facility] [facility], [address] [place] [address], [address], 5 08:33:14 beta-2 glycoprote in 1 Ab, serum [address] [place] [place] [address] Laboratory, [address] [place] [address], [address], 5 08:33:14 anticardio lipin igg+igm Ab, serum [address] [place] [address], [address] [place] [address], [address], 5 08:33:14 lupus anticoagul ant, plasma [address] [place] [address], [address] [place] [address], [address], 5 08:33:14 urinalysis , complete [address] [place], [place] [address], [address] [place] [address], [address], 5 08:33:14 HIV (1+2) Ab screen, serum [address] [place] [place] [address] Laboratory, [address] [place] [address], [address], 5 08:33:14 CBC w/ auto diff [address] [place] [address], [address] [place] [address], [address], 5 08:33:14 CMP, serum or plasma [address] [place] [address], [address] [place] [address], [address], 5 08:33:14 ESR (erythrocy te sedimentat ion rate), blood [address] Laboratory, [address] [place] [address], [address], 5 08:33:15 C reactive protein, QN, serum or plasma [address] Laboratory, [address] [place] [address], [address], 5 08:33:15 celiac disease comprehens dotty panel, serum [address] [facility], [address] [place] [address], [address], 5 08:33:15 HSV (1+2) DNA, quant, PCR, unspecifie d specimen [address] Laboratory, [address] [place] [address], [address], 5 08:33:15 Referral sleep medicine referral 2024 025 [email or web address] Joel Cerrato MD, [address] [place] [address], [address], 5 10:29:36 dermatolog ist referral 2024 025 [place] [address] Yao Avila MD, [address] [place] [address], [address], 5 16:21:26 Procedures None recorded. Surgeries None recorded. Imaging None recorded. Medication Orders CellCept 500 mg tablet 2024 025 [facility] [place], [address], 14:51:06 hydroxychl oroquine 200 mg tablet 2024 025 [facility], [address] [place], [address], 5 14:51:06 fluconazol e 200 mg tablet [address] [place] [address] [facility], [address] [place] [address], [address], 14:51:06 roflumilas t 500 mcg tablet [address] [place] [address] Pharmacy [facility], [address] [place] [address], [address], 14:51:06 tacrolimus 1 mg capsule, immediate- release [address] [place] [address] Pharmacy [facility], [address] [place] [address], [address], 14:51:06 prednisone 10 mg tablet [address] [place] [address] Pharmacy [facility], [address] [place] [address], [address], 14:51:06 Patient TargetsNo targets recorded. Patient Instructions Encounter Date Encounter Id Patient Instructions Last Modified By Organization Details Last Modified Time 06/13/2024 [id number] medical record request* - Please fax office notes and biopsy reports. Unknown provider she saw [email or web address] Not available 07/14/2024 09:57:32 Follow-up TBD pending results, Dermatology evaluation [email or web address] Not available 06/13/2024 12:32:28 Reason for Referral Director Cardiology Referral for R ecurrent ulcer of mouth Recurrent mouth sores, ?thrush Referring Physician: Bradley Martinez, Rheumatology, Encounter Date: 06/13/2024 Sleep Medicine Referral for Sleep apnea Referring Physician: Yao Monte, Dermatology, Encounter Date: 06/14/2024 Results Created Date Observation Date Name Description Value Unit Range Abnormal Flag Note LastModifiedBy Organization Detail LastModifiedTime 06/14/19 25 06/14/2024 SURGI TERESO surgical SEE BELOW [place] topat holog y Repor t NAME: MELO LAGUERRE PATH: [id number] PROCE DURE DATE: 06/14 SIGNO UT DATE: 06/16 Copy to: Diagn osis: Right Arm - LICHE N PLANU S SOURC E OF SPECI MEN: SKIN, R ARM CLINI TERESO INFOR MATIO N: R/O: LICHE N PLANU S Gross Descr iptio n: The speci men consi sted of a duran fragm ent which was trise cted and measu red 12 x 6 x 1 mm. All submi tted in one casse tte. Micro scopi c Descr iptio n: A liche noid infil trate compo sed of lymph ocyte s obscu res and focal ly oblit erate s the dermo epide rmal inter face. Scatt ered and clump ed cytoi d suze s are noted . The epide rmis displ ays hyper granu losis and ortho kerat osis. STEPHANI BURRELL MD Britt d Out Date: 06/16 13:37 1 Not Available [facility] [address] [place] [address], [place], [address], 06/16/2024 13:38:07 06/15/19 25 06/15/2024 SURGI TERESO surgical SEE BELOW Consu ltati on Repor t NAME: MELO LAGUERRE PATH: [id number] PROVI ARLENE: STEPHANI BURRELL MD PROCE DURE DATE: 06/15 SIGNO UT DATE: 06/16 Copy to: Diagn osis: Tongu e - CONSI STENT WITH LICHE N PLANU S Comme nt: I have had the oppor tunit y of exami justino this patie nt clini mauro . 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 SOURC E OF SPECI MEN: # SLIDE S: 2 CLINI TERESO INFOR MATIO N: Tongu e Ulcer Gross Descr iptio n: Recei silvio for consu ltati on two H&E slide s label ed [facility] Tina j[place], [place], [id number] 8413, A1-1, A1-2. Micro scopi c Descr iptio n: The epith elium does not demon strat e kerat inocy te atypi a. GMS stain does not demon strat e funga l organ isms. In the super ficia l giovanni a propr ia is a band of lymph ocyte s that very focal ly obscu res the overl musa epith elial basem ent membr ane zone and basal cell row. Rare necro tic kerat inocy gibson are ident ified withi n the lower epith elium . STEPHANI BURRELL MD Britt d Out Date: 06/16 09:17 Page 1 of 1 Not Available [facility] [address] [place] [address], [address], 06/16/2024 09:18:12 Result Notes None recorded. Procedures Surgical History Date Name Laterality Status Provider Name and Address Organization Details Recorded Time 5 Blade Biopsy completed YAO MONTE MD [address] [place] [address], [phone], [facility] 06/14/2024 14:49:22 procedure on knee completed Angela Knox [facility] 06/13/2024 10:47:48 Imaging Results None recorded. Procedure Notes None recorded. Medical Equipment None Reported. Allergies No known drug allergies Medications Name Sig Start Date Stop Date Status Note LastModified by Organization Details LastModified Time Prescription - Renewal active Not Available Not Available No t Available metformin 500 mg tablet Take 1 tablet twice a day by oral route. active Not Available Not Available No t Available atorvastatin 80 mg tablet Take 1 tablet every day by oral route. active Not Available Not Available No t Available prednisone 10 mg tablet TAKE 3 TABLETS BY MOUTH ONCE DAILY FOR 7 DAYS, THEN 2 TABLETS ONCE DAILY FOR 7 DAYS, THEN 1 TABLET ONCE DAILY FOR 7 DAYS. active Not Available Not Available No t Available fluconazole 200 mg tablet TAKE 1 TABLET BY MOUTH ON THURSDAY AND 1 TABLET ON Thursday active Not Available Not Available Not Avai lable mycophenolat e mofetil 500 mg tablet Take 1 tablet by mouth twice daily 2024 active Not Available Not Available Not Avai lable hydroxychlor oquine 200 mg tablet Take 1 tablet every day by oral route. 2024 active Not Available Not Available Not Avai lable tacrolimus 1 mg capsule, immediate-re lease Take 1 tab as directed . Dissolve in 500mL water and swish for 2 min then spit. 2024 active Not Available Not Available Not Avai lable valsartan active Not Available Not Laura ilable Not Available aspirin active Not Available Not Avail able Not Available levothyroxin e active Not Available Not Available Not Available ferrous gluconate active Not Available Not Available No t Available carvedilol active Not Available Not Av ailable Not Available spironolacto ne active Not Available Not Available Not Available isosorbide active Not Available Not Av ailable Not Available Vitamin D3 active Not Available Not Av ailable Not Available cetirizine active Not Available Not Av ailable Not Available cetirizine 10 mg capsule Take by oral route. active Not Available Not Available Not Available roflumilast 500 mcg tablet Take 1 tablet every day by oral route at bedtime. 2024 active Not Available Not Available Not Avai lable fluticasone furoate 50 mcg-vilanter ol 25 mcg/dose inhalation powder Inhale by inhalation route. active Not Available Not Available No t Available Vitals Date Recorded Body weight Body mass index (BMI) Body height Heart rate Systolic blood pressure Diastolic blood pressure Provider Name and Address Organization Details Last Updated DateTime 5 88486.5 5 g 41.1 kg/m2 144.78 cm 59 /min 104 mm[Hg] 53 mm[Hg] Angela Knox [facility] 10:13:41 Social History Question Answer Notes LastModified by Organizat ion Details LastModified Time Tobacco Smoking Status Former Smoker Angela martinez [facility] 06/13/2024 10:47:13 When Did You Quit Smoking? 6-10yearssin celastcigare tte 2013 [email or web address] Information not available 06/13/2024 Sunscreen Use? No Informatio n not available 06/14/2024 Tanning Bed Use No Informati on not available 06/14/2024 What Was The Date Of Your Most Recent Tobacco Screening? 06/23/2024 Information not available 06/23/2024 Sex: Unknown Functional Status Question Answer Note LastModified by Organizat ion Details LastModified Time What is your level of alcohol consumption? Occasional [email or web address] Information not available 06/13/2024 Mental Status None recorded. Family History Nothing Reported. Medical History Condition Response Arthritis Y Asthma Y Diabetes Y Hypertension Y Gynecological HistoryNo gynecological history recorded. 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 Unclear clinical significan ce. Checked in the setting of recurrent blisters in mouth, tongue, gums.Will repeat JERRY and check serologies related to SLE, Sjogren's today.We discussed nature of JERRY testing. ACR handout on positive JERRY given. Recurrent ulcer of mouth 175426482 K12.1 Painful ulcers constantly affecting tongue, gums, inner cheeks. No hard palate ulcers. No nasal or genital ulcers. No rashes. No history of IBD, inflammato ry eye disease.Aram farr been treated for thrush before. Has not seen ID or Dermatolog y.Reports ?negative biopsy in the past by ENT.Has seen her dentist.Aram farr tried Magic mouth wash and Prednisone . Reports responsive to steroids. She does not have other strong signs to suggest systemic lupus -- as ulcers related to SLE typically are painless. No other clinical signs to suggest Behcet's.H as Sicca symptoms -- will check labs related to Sjogren's. Will check labs as below and refer to Dermatolog y (Dr. Monte) for further evaluation . Will request records and biopsy reports from ENT ([place], [place]). [id number] YAO MONTE MD [address] [address] 06/14/2024 13:01:53 06/14/2024 13:55:48 Lichen planus [id number] L43.8 The nature of the diagnosis was explained. lab order sent to lab.Will take bx today from the left forearm. will call for outside records and path report from oral biopsy so I can review slides. Rx prescribe for tacrolimus 1mg capsule 1 QD PO as directed. Dissolve in 500mL water and swish for 2 min then spit. Can refrigerat e water bottle for up to 1 month labeled as medicated . SE reviewed.R x prescribed for Cellcept 500mg take 1 tab po BID. SE reviewed.R x prescribed for hydroxychl oroquine bid x 12 weeks and then once per day. SE reviewedRx prescribed for fluconazol e 200 mg, take 1 tab twice per week ( thursday and )r oflumilast Rx prescribed for prednisone 10mg, take 3 tabs x 1 week, 2 tabs x 1 week, 1 tab x 1 week. SE reviewed. pt to follow up in 3-4 weeks. Sleep apnea [id number] G47 .30 Will refer pt to Dr. Jonathan Gonzalez [id number] NIMA ARCE [address] [address] 06/23/2024 15:31:26 06/23/2024 16:27:45 Lichen planus [id number] L43.8 The nature of the diagnosis was discussed. Pt has sleep study scheduled for July 07, 2024.Pnt has noticed much improvemen t with the current treatment. Cont. Rx CellCept 500 mg tablet 1 tablet 2 times a dayCont. Rx Tacrolimus 1 mg capsule, immediate- release Take 1 tab as directed . Dissolve in 500mL water and swish for 2 min then spit.Cont. Rx Hydroxychl oroquine 200 mg tablet 1 tablet every day.Cont Rx Fluconazol e 200 mg tablet take 1 tab by mouth on Thursday and 1 tab by mouth on . Cont. Rx PredniSONE 10 mg tablet take 2 tabs x 1 week, 1 tab x 1 week. Pt going to call [phone] to set up next appointmen t with Dr. Monte. Seborrheic keratosis 394 [id number] L82.1 The nature of the diagnosis was discussed. Benign appearing lesions. Health Concerns Section Related Observation LastModified by Organization Detai ls LastModified Time None Recorded Concern Status LastModified by Organization Details LastModified Time None Recorded Advance Directives Directive None Recorded Payers Insurance Date Sequence Insurance Name Policy Number Policy Diaz Covered Member ID Diaz Member ID Guarantor Name 06/14/2024 1 [employer] (MEDICARE SUPPLEMENT) Isidra Meghan Shade [id number] Isidra Laguerre 08/08/2024 1 [employer] - GOLD PLUS (MEDICARE REPLACEMENT/A DVANTAGE - HMO) Isidra Meghan Laguerre [id number] Isidra Smith Notes Date Note Type Note Provider Name and Address Organization Details Recorded Time 06/13/2024 text/html Referred by PCP for evaluation of positive JERRY.Noted to have positive JERRY 1:80 dense fine speckled in 03/2024. This was checked in the setting of recurrent blistering in mouth, tongue. Has been treated for thrush without improvement.Endorses onset blisters in her mouth 2 years ago that is constant. Has seen ENT in [place]. Had biopsy, which she reports was not revealing. No records available.Usually mouth sores are very painful. Hard to eat. Denies correlation of symptoms of food or drink intake. Has seen dentist.Denies hard palate ulcers.Has tried Magic mouth wash, Prednisone. Prednisone clears up sores.Denies nose sores, genital sores.No history of recurrent fevers.Denies any rash, alopecia, photosensitivity, Raynaud's phenomenonReports dry mouth. Rarely has dry eyes.Gets dyspnea on exertion. Reports dry cough frequently. Has history of CAD s/p CABG, ischemic cardiomyopathy. States she was told she had a 'blood clot' on ?stress test.Has pain in right hand due to trigger finger. Has had bilateral TKA.Denies blood in urine or stool.No history of inflammatory eye disease.No history of inflammatory bowel disease.Not updated on mammogram or colonoscopy.Reports night sweats. Denies other constitutional symptoms. BRADLEY MARTINEZ MD [facility] [place], [address], [facility] 06/13/2024 12:36:01 06/14/2024 text/html recurrent ulcers of mouth pt of Dr Martinez; onset blisters in her mouth 2 years ago that is constant. Has seen ENT in [place]. Had biopsy, which she reports was not revealing. No records available.Usually mouth sores are very painful. Hard to eat. Denies correlation of symptoms of food or drink intake. Has seen dentist.Denies hard palate ulcers.Has tried Magic mouth wash, Prednisone. Prednisone clears up sores.Denies nose sores, genital sores.No history of recurrent fevers.Denies any rash, alopecia, photosensitivity, Raynaud's phenomenon Iron deficiency anemia following bariatric surgery;History of anemia due to vitamin B12 deficiency --i have blisters in my mouth, they have been there for 2 years.When I take prednisone they go away.Pt has tried: magic mouthwash, prednisone.I have bumps on my arms.denies vaginal itching I have sleep apnea but my mask does not fit so I dont use the machine YAO MONTE MD [facility] [place], [address], [facility] 06/14/2024 14:51:01 06/23/2024 text/html lichen planus 2 week f/u tx: prednisone, tacrolimus, hydroxychloroquine, cellcept, roflumilast and fluconazole. reports: I am seeing improvement with the Rx spot of concern location: right hipreports: none NIMA ARCE [address] [place], [address], [facility] 06/29/2024 08:17:16 OBGyn Episode No OBEpisode recorded.
--- NOTE | 2024-11-17 10:12 | EXP.PAIN.OV ---
HPI Data of Consult Patient: new to practice Consult date: 11/17/24 Requesting Physician: Suzanna Crooks APRN Primary Care Provider: Philly Lyons APRN Reason for consult: Bilateral finger pain, trigger finger pain History of present illness: Ms. Laguerre is a 69 year old female who presents today as a new patient. She has a referral from [facility] office. Today she rates her pain an 8 out of 10. Patient states that she has pain along her right ring finger and left index finger. Patient states this been going on for 4 months and progressively worsening. Patient states she has had this issues in the past but it was years ago and she ended up getting an injection that did help. Patient states it is constant and does interfere with her ability perform activities of daily living such as cooking and cleaning. Patient has tried agfu-fkq-qazzbed Advil along with heat, CBD lotion and even a copper glove with minimal changes. Patient does state that she does have significant heart history and is scheduled for a stress test and echo this next month. Patient does have a longstanding history of bypass surgery as well as TIAs and stroke. Patient does also states she has diabetes. Her Franko has been reviewed and is appropriate. Pain at rest (0-10 scale): 8 Has patient had previous pain injection?: No Conservative treatment options previously tried: Home exercise plan (Longer than 12 weeks) cc:: CC: Suzanna Crooks APRN [facility] Disclaimer: The information contained in this section may have been updated after the patient was seen, as this information can be updated by other users. Medical History Tongue lesion Hoarseness of voice Pain with swallowing Difficulty swallowing Oral lesion blisters in mouth Surgical History History of uvulectomy History of nasal surgery History of cholecystectomy History of gastric bypass History of two vessel coronary artery bypass graft History of knee replacement Social History Smoking Status: Former smoker tobacco type: cigarettes smoking status stop date: 2018 alcohol intake: current alcohol intake frequency: holidays/special occasions only current occupational status: employed Travel in the last 8 weeks?: None Have you lived/traveled outside US in past 30 days?: No Contact w/someone who lives/traveled outside US past 30 days?: No Exposure to someone with infectious disease in past 14 days?: No Do you have a fever (greater than 100.4 F or 38 C)?: No Have you tested positive for COVID-19?: No Exposed to someone with COVID-19 in past 14 days?: No Do you have a sore throat?: No Do you have a cough?: No Do you have any weakness?: No Do you have any diarrhea?: No Are you experiencing any unusual bleeding?: No Do you have any muscle aches/pain?: No Do you have any abdominal pain?: No Are you experiencing loss of taste or smell?: No Review of Systems Review of Systems Review of systems:: pertinent systems reviewed and negative unless documented below Review of systems (narrative): Review of Systems: General: No recent weight changes, no fever, no sleep disturbances Respiratory: No cough, no shortness of air, no recurring pulmonary infections Cardiovascular/peripheral vascular: No chest pain, no palpitations, no edema, no shortness of breath Gastrointestinal: No new onset incontinence, normal bowel movements reported Genitourinary: No new onset incontinence Musculoskeletal: Bilateral finger pain Psychiatric: [Normal mood/affect] Neurological: [Denies weakness in extremities], [denies balance issues] Meds Home Medications and Allergies Home Medications ?Medication ?Instructions ?Recorded ?Confirmed ?Type aspirin 81 mg tablet,delayed 81 mg PO DAILY 03/30/24 11/15/24 History release atorvastatin 80 mg tablet 80 mg PO HS 03/30/24 11/15/24 History blood sugar diagnostic (True #10 ea 03/30/24 11/15/24 History Metrix Glucose Test Strip) carvedilol 6.25 mg tablet 6.25 mg PO BID 03/30/24 11/15/24 History cetirizine 10 mg tablet 10 mg PO DAILY PRN 03/30/24 11/15/24 History cholecalciferol (vitamin D3) 1,250 50,000 unit PO WEEKLY 03/30/24 11/15/24 History mcg (50,000 unit) capsule dexamethasone 0.5 mg/5 mL oral 0.5 mg (5 mL) PO BID swish and 03/30/24 11/15/24 Rx elixir spit for mouth blisters #300 mL ferrous gluconate 324 mg (38 mg 324 mg PO DAILY 03/30/24 11/15/24 History iron) tablet fluticasone propionate 50 2 spray intranasal BID 03/30/24 11/15/24 History mcg/actuation nasal spray,suspension isosorbide mononitrate 30 mg mg PO 03/30/24 11/15/24 History tablet,extended release 24 hr itraconazole 100 mg capsule 100 mg PO DAILY 03/30/24 11/15/24 History levothyroxine 50 mcg tablet 50 mcg PO DAILY 03/30/24 11/15/24 History lisinopril 20 mg tablet 20 mg PO DAILY 03/30/24 11/15/24 History metformin 500 mg tablet 500 mg PO TIDWMEAL 03/30/24 11/15/24 History nystatin 100,000 unit/mL oral 5 ml mucous membrane BID PRN 03/30/24 11/15/24 History suspension omeprazole 20 mg capsule,delayed 20 mg PO 03/30/24 11/15/24 History release spironolactone 25 mg tablet 25 mg PO DAILY 03/30/24 11/15/24 History vibegron 75 mg tablet (Gemtesa) 75 mg PO DAILY 03/30/24 11/15/24 History cholecalciferol (vitamin D3) 125 125 mcg PO DAILY 06/15/24 11/15/24 History mcg (5,000 unit) capsule fluconazole 150 mg tablet 150 mg PO Q3D 06/15/24 11/15/24 History hydroxychloroquine 200 mg tablet mg PO 06/15/24 11/15/24 History metformin 500 mg tablet,extended 500 mg PO BID 06/15/24 11/15/24 History release 24 hr prednisone 10 mg tablet 10 mg PO DIRECTED 06/15/24 11/15/24 History roflumilast 500 mcg tablet 500 mcg PO DAILY 06/15/24 11/15/24 History tacrolimus 1 mg capsule, 1 mg PO DAILY 06/15/24 11/15/24 History immediate-release valsartan 80 mg tablet 80 mg PO DAILY 06/15/24 11/15/24 History New Prescriptions to Start Prescriptions: Allergies Allergy/AdvReac Type Severity Reaction Status Date / Time No Known Allergies Allergy Verified 11/15/24 13:09 Objective Narrative: Physical Exam: General: Alert and oriented x3, no acute distress, pleasant and cooperative Lungs: Respirations even and unlabored, symmetrical chest expansion Eyes: PERRL Musculoskeletal: Flexion and extension of right ring finger and left index finger somewhat guarded secondary to pain Neurological: Speech clear, no gross sensory deficit Assessment and Plan *Assessment and plan (1) Pain in finger of both hands: Status: Acute Category: Medical Code(s): M79.645 - Pain in left finger(s); M79.644 - Pain in right finger(s) (2) Trigger finger: Status: Acute Category: Medical Code(s): M65.30 - Trigger finger, unspecified finger Plan I did discuss with the patient that she may benefit from injections however with her upcoming heart related issues I would like to wait and make sure everything is okay. Patient does agree with this as she states she is not a fan of needles and really would like to avoid this. I will order her compounded cream. Patient will return to clinic in 1 month for reevaluation of symptoms and plan of care. Patient has been instructed to contact the clinic with any concerns before the next appointment. Dr. Garcia has reviewed this note and agrees with this plan of care. This note was dictated using voice recognition software and make contain errors or omissions. All injections are used with Lidocaine, Bupivacaine and dexamethasone. Occasionally urine drug screen is needed to verify patient's compliance with our office pain contract. This is ordered based off specific treatments related to chronic pain with the potential to abuse certain medications.
[2024-11-17 11:31] VITALS: BP 112/61; PULSE 69; RESP 18; O2SAT 97; BMI 43.9
== END 2024-11-17 23:59 | disposition home or self-care (01) ==
LOC: SC.PAIN 09:44
PROVIDERS: PCP Nurse Practitioner; Visit Provider Nurse Practitioner Family
DX: M65.311 Trigger thumb, right thumb (principal); M65.312 Trigger thumb, left thumb; Z79.1 Long term (current) use of non-steroidal anti-inflammatories (NSAID)
CPT/HCPCS: 99202; G0463

== ENCOUNTER 2024-11-24 12:11 | Outpatient (CLI) | payer MEDICARE, MEDICAID, SELFPAY ==
--- OUTSIDE RECORDS SUMMARY | 2024-11-24 12:15 | XMS_ITS | Encounter Summary ---
Author Organization Healthcare Address [address] [place] [address] Care Team Providers Care Liquor Rectifier Name Role Phone Cirilo Berrios MD Primary Care Provider [phone] Reason for Visit * Reason Comments Med Refill Encounter Details Date Type Department Care Team (Late st Contact Info) Description 01/15/2024 Refill [facility] [address] [place] [address] Suzanna Vásquez, MANAGER INTERN, DNP [address] [place] [address] Social History Tobacco Use Types [...] week 07/07/2023 How often do you attend [facility] or [facility] services? 1 to 4 times per year 07/07/2023 Do you belong to any clubs o r organizations such as orthodox groups, unions, fraternal or athletic groups, [...] Recorded Patient Health Questionnaire-2 Score 0 01/06/2024 [facility] - Occupational [...] place to sleep or slept in a alf (including now)? No 07/07/2023 PHQ-9 Answer Date [...] documented as of this encounter Care Teams Liquor Rectifier Relationship Specialty Start Date End Date Cirilo Berrios MD [address] [place] [address] PCP - General 10/12/20 documented as of this encounter
--- OUTSIDE RECORDS SUMMARY | 2024-11-24 12:15 | XMS_ITS | Encounter Summary ---
Author Organization [facility] Address [address] [place] [address] Care Team Providers Care Portfolio Manager Name Role Phone Unavailable Primary Care Provider Unavailabl e Encounter Details Date Type Department Care Team (Late st Contact Info) Description 07/06/2018 Transcribed Document [facility] Medicine [address] [place] [address] ProviderAdilson MD [address] [place] [address] Social History Tobacco Use Types Packs/Day Years [...] Adilson Davila MD - 07/06/2018 2:46 PM NETWORK COMMUNICATIONS ENGINEER DATE OF SERVICE: 07/06/2018 SLEEP MEDICINE FOLLOWUP [...] previous DME company did not require any exj-ig-csefyr expenses. The net result is that she has not kept her equipment up-to-date and she says her filters are old and probably causing congestion. She is little frustrated and says she cannot even afford filters. Her Tafton score is 2/24. PHYSICAL EXAMINATION: VITAL SIGNS: [...] machine. She is frustrated because she has wel-tt-indqln expenses with her current DME company and [...] have to continue getting her supplies from [employer]. 3. We explained her to how to use her humidifier, which should help prevent waking up with nasal congestion every morning. 4. I will see her back in 10-12 weeks. Jin Osei M.D. Dict: 07/06/2018 14:46:51 Trans: 07/06/2018 23:24:50 CC1: Jin Osei M.D. CC2: Cirilo Berrios MD Electronically signed by Jaylen Roberts Katarzyna Surgical Technology Instructor Cerner at 09/15/2022 9:49 AM CDT documented in this encounter Plan of Treatment Not on file documented as of this encounter Visit Diagnoses Not on filedocumented in this encounter
--- OUTSIDE RECORDS SUMMARY | 2024-11-24 12:15 | XMS_ITS | Clinical Summary ---
Author Organization [facility] Address [address] 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 1 to 4 times per year 07/07/2023 Do you belong to any clubs o r organizations such as mormonism groups, unions, fraternal or athletic groups, or [...] Recorded Patient Health Questionnaire-2 Score 0 01/06/2024 [facility] - [facility] Stress Questionnaire Answer Date Recorded [...] place to sleep or slept in a skilled nursing (including now)? No 07/07/2023 PHQ-9 Answer Date [...] 02/26/2017 [facility]-Medicare Annual Wellness (AWV) 10/14/2023 10/13/2022 [id number] Vaccine ( - season) 2024 [facility]-Diabetes: Hemoglobin [...] POCT Hemoglobin A1C 10.8 <5.7% Non-Diabet ic [facility] Kit Lot Number [id number] [facility] Kit Expiration Date 06/2025 [facility] Blood Venous blood specimen / Unknown 08/17/2023 9:13 AM EDT Cirilo Tracey MD POINT OF CARE TEST ENTER/ED IT ORDERABLES Final Result [facility] [address] [place] [address] * Hepatitis C antibody (06/05/2023 4:01 PM EST) Hepatitis C Antibody Negative Negative 06/05/2023 6:57 PM EST [facility] Blood Venous blood specimen / Unknown Venipuncture / Unknown 06/05/2023 4:01 PM EST 06/05/2023 4:01 PM EST Cirilo Tracey MD LAB BLOOD ORDERABLES Final Result [facility] [address] [place] [address] * Colonoscopy (12/31/2022 4:57 PM EDT) Anatomical [...] Miguel Michael MD Anesthesiologist [place] Endo Bridge/Structure Inspection Team Leader Carolyn Willson RN Endo Nurse Parth Arevalo [...] of bowel preparation was evaluated using the [place] Bowel Preparation Scale with scores of: right [...] Narrative 02/28/2022 10:43 AM EDT [facility] - Nephrology, Bone & Mineral Metabolism [address] [place] [address] Patient Name: Isidra Laguerre Patient Age: 66 y.o. Procedure Information: BMD measurement was performed using ZizeronesXA DXA System manufactured by [employer] Technique: BMD of the axial skeleton was [...] of Service: 10/04/2020 eferring Phy:Cirilo Tracey, MDAccount: [phone] Dictated By: Terrance Falcon M.D. Verified By: [...] to prior imaging studies perf ormed at [facility] on 03/20/2004 and 02/26/2017. FINDINGS: MAMMOGRAM [...] femaleDate of Service: 10/04/2020 eferring Phy:Cirilo Tracey, [facility] [phone] [place] [address] FINAL REPORT PROCEDURE: Tomosynthesis Bilateral Screening - bilateral , Screening Mammogram With Cad - bilateral HISTORY: Patient is 65 years old and is seen for screening mammography. The patient has the following family history of breast cancer: sister, at age 20, breast cancer, specified type unknown. COMPARISON: The present examination has been compared to prior imaging studies performed at [facility] on 03/20/2004 and 02/26/2017. FINDINGS: MAMMOGRAM [...] to prior imaging studies perf ormed at [facility] on 03/20/2004 and 02/26/2017. FINDINGS: MAMMOGRAM [...] Gender: femaleDate of Service:10/04/2020 eferring Phy:Cirilo Tracey, [facility]: [phone] [place] [address] FINAL REPORT PROCEDURE: Tomosynthesis Bilateral Screening - bilateral , Screening Mammogram WithCad - bilateral HISTORY: Patient is 65 years old and is seen for screening mammography. Thepatient has the following family history of breast cancer: sister, at age 20, breast cancer, specified typeunknown. COMPARISON: The present examination has been compared to prior imaging studiesperformed at [facility] on 03/20/2004 and 02/26/2017. FINDINGS: MAMMOGRAM [...] femaleDate of Service:10/04/2020 eferring Phy:Cirilo Tracey MDAccount: [phone] Dictated By: Terrance Falcon M.D. Verified By: [...] Patient has decision-making capacity? Yes Care Teams Embossing Press Operator Apprentice Relationship Specialty Start Date End Date Cirilo Tracey MD [address] [place] [address] PCP - General 10/12/20
--- OUTSIDE RECORDS SUMMARY | 2024-11-24 12:15 | XMS_ITS | Clinical Summary ---
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 90 tablet 3 03/28/20 24 Active isosorbide mononitrate (IMDUR) 30 MG 24 hr tabletIndications:C oronary artery disease of ugashik artery of ugashik heart with stable angina pectoris,Chronic HFrEF (heart failure with reduced ejection fraction) Take 1 tablet by mouth Every Morning. 90 tablet 3 03/28/20 24 Active vitamin D3 125 MCG (5000 UT) capsule capsule Take 1 capsule by mouth Daily. Active valsartan (DIOVAN) 80 MG tabletIndications:C hronic stable angina,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,Chronic HFrEF (heart failure with reduced ejection fraction),Atheroscl erosis of ugashik coronary artery of ugashik heart without angina pectoris,Hypertensi on, unspecified type [...] and swallow and Diflucan-no improvement Seen at [facility] and diagnosed with geographic tongue Continues [...] artery disease of n ative artery of ugashik heart with stable angina pectoris 02/10/2023 Overview (02/10/2023): PCI, CABG x 2 (2002) at [facility] - data deficit CAMERON (obstructive sleep apnea) 02/10/2023 Overview (02/10/2023): Noncompliant with CPAP Hypothyroidism (acquired) 02/10/2023 Type 2 diabetes mellitus, [facility] long-term current use of insulin 02/10/2023 Overview (02/03/2024): HgbA1c Goal: < 7% Assessment & Plan (02/03/2024 5:07 PM EDT): Patient is not checking blood sugars Currently taking only Jardiance for diabetes Mhqvj-ag-ebss hemoglobin A1c today is 7.6% Microalbumin is [...] to r/o ischemia Pt referred to her log scaler for f/u Patient verbalizes understanding if she [...] Type Department Care Team Description 09/26/2024 Telephone [facility] [address] [place] [address] Philly Lyons APRN 09/22/2024 Refill [facility] [address] [place] [address] Ethel Laguerre, SPOT WELDER Iron deficiency anemia following bariatric surgery from [...] 9:31 AM EDT 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 Chronic HFrEF [...] - 200 mg/dL 03/31/2024 7:09 PM EDT [facility] Triglycerides 101 0 - 150 mg/dL 03/31/2024 7:09 PM EDT [facility] HDL Cholesterol 58 40 - 60 mg/dL 03/31/2024 7:09 PM EDT [facility] LDL Cholesterol 110(H) 0 - 100 mg/dL 03/31/2024 7:09 PM EDT [facility] VLDL Cholesterol 18 5 - 40 mg/dL 03/31/2024 7:09 PM T [facility] LDL/HDL Ratio 1.86 03/31/2024 7:09 PM EDT [facility] Blood Venipuncture / Unknown 03/31/2024 9:31 AM EDT 03/31/2024 9:32 AM EDT [facility] - 03/31/2024 7:09 PM EDT Cholesterol [...] ORDERABLES Fi nal Result Performing Organization Address [facility]/ZIP Co de Phone Number [facility]
[address] [place] [address], * (ABNORMAL) POC Glycosylated Hemoglobin (Hb A1C) (02/03/2024 2:15 PM EDT) Hemoglobin A1C 7.6(A) 4.5 - 5.7 % [facility] Lot Number [id number] [facility] Expiration Date 09/02/2025 [facility] Blood 02/03/2024 2:15 PM EDT Ethel Laguerre APRN POINT OF CARE TEST BAI ORTIZ Final Result Performing Organization Address [facility]/ZIP Co de Phone Number [facility]
[address] [place] [address], from Last 3 Months or Most Recently Relevant to Health Maintenance Insurance [employer] HMO Care Teams Settlement Worker Relationship Specialty Start Date End Date Philly Lyons APRN [address] [place] [address] PCP - General Nurse Practitioner 03/28/24
--- OUTSIDE RECORDS SUMMARY | 2024-11-24 12:15 | XMS_ITS | Clinical Summary ---
Author Organization [email or web address] [employer] Address [address] [place] [address] Care Team Providers Care Material Reclaimer Name Role Phone Unavailable Primary Care Provider [...]
--- OUTSIDE RECORDS SUMMARY | 2024-11-24 12:16 | XMS_ITS | Patient Health Record ---
Author Organization [facility] Yamil martinez Billing Info Address [address] [place] [address] Support Name Relationship Address Phone Isidra Laguerre Guarantor Unknown [phone] Reason For Referral No Information Plan Of Treatment No Information Insurance Providers Payer Name Payer Address Payer Phone Subscriber Number Group Number Insured Name Patient Relationship to Insured Coverage Start Date Coverage End Date [employer] [facility] [employer] MEDICARE [address] [address] [place], [place] [id number] Isidra Laguerre Self - patient is the insured
--- OUTSIDE RECORDS SUMMARY | 2024-11-24 12:16 | XMS_ITS | Encounter Summary ---
Author Organization [facility] Address [address] [place] [id number] Care Team Providers Care Assembling Motor Builder Name Role Phone Philly Lyons APRN Primary Care Provider [phone] Encounter Details Date Type Department Care Team (Late st Contact Info) Description 09/26/2024 Telephone [facility] [address] [place] [address] Philly Lyons, DEEPA [address] [place] [address] Social History Tobacco Use Types [...] on filedocumented in this encounter Care Teams Assembling Motor Builder Relationship Specialty Start Date End Date Philly Lyons APRN [address] [place] [address] PCP - General Nurse Practitioner 03/28/24 documented as of this encounter
--- OUTSIDE RECORDS SUMMARY | 2024-11-24 12:16 | XMS_ITS | Referral Summary ---
Author Organization [employer] [employer] [facility] [employer] Address [address] [place] [address] Care Team Providers Care Boarding Specialist Name Role Phone Unavailable Primary Care [...]
--- OUTSIDE RECORDS SUMMARY | 2024-11-24 12:16 | XMS_ITS | Data Portability ---
Author Organization [facility] CRISTIANA Peralta FIELDALE CLOSED Address [address] [facility] [address] [place] [address] Care Team Providers Care Pulp Mill Team Leader Name Role Phone IGNACIO PRECIADO Primary Care Provider [phone] MIN, BRADLEY Ruling Machine Feeder Assessment No assessment recorded. Plan of Treatment Reminders Order Date Submit Date Provider Last Modified By Organization Details Last Modified Time Details Appointments None recorded. Lab surgical pathology study [address] 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 , qual, blood 2024 025 [email or web address] [address] [facility] Juventino Lizama, [place], [address], 5 12:37:16 hepatic function panel, serum 2024 025 [facility]UR[facility] FERRY [facility] [place], [address], 5 15:39:30 JERRY (antinucle ar antibodies ) titer + pattern, ifa, serum [address] [place] [address] Laboratory, [address] [place] [address], [address], 5 08:33:13 sjogren antibody panel, serum [address], [address] [place] [address], [address], 5 08:33:13 C3 (complemen t), serum or plasma [address], [address] [place] [address], [address], 5 08:33:13 C4 (complemen t), serum or plasma [address] [place] [address], [address] [place] [address], [address], 5 08:33:13 protein electropho resis panel, serum or plasma [address] [place] [address], [address] [place] [address], [address], 5 08:33:13 rf (rheumatoi d factor), serum [address] [place] [address], [address] [place] [address], [address], 5 08:33:13 dsDNA Ab, serum [address] [place] [address], [address] [place] [address], [address], 5 08:33:14 laguerre Ab + administrative office specialist Ab, serum [address] [place] [address], [address] [place] [address], [address], 5 08:33:14 vitamin B12, serum [address] [place] [address], [address] [place] [address], [address], 5 08:33:14 folate, RBC [address] [place] [address] Laboratory, [address] [place] [address], [address], 5 08:33:14 beta-2 glycoprote in 1 Ab, serum [address] [place] [address] Laboratory, [address] [place] [address], [address], 5 08:33:14 anticardio lipin igg+igm Ab, serum [address] [place] [address], [address] [place] [address], [address], 5 08:33:14 lupus anticoagul ant, plasma [address] [place] [address], [address] [place] [address], [address], 5 08:33:14 urinalysis , complete [address] [place] [address], [address] [place] [address], [address], 5 08:33:14 HIV (1+2) Ab screen, serum [address] [place] [address] Laboratory, [address] [place] [address], [address], 5 08:33:14 CBC w/ auto diff [address] [place] [address], [address] [place] [address], [address], 5 08:33:14 CMP, serum or plasma [address] [place] [address], [address] [place] [address], [address], 5 08:33:14 ESR (erythrocy te sedimentat ion rate), blood [address] Laboratory, [address] [place] [address], [address], 5 08:33:15 C reactive protein, QN, serum or plasma [address] Laboratory, [address] [place] [address], [address], 5 08:33:15 celiac disease comprehens dotty panel, serum [address] Laboratory, [address] [place] [address], [address], 5 08:33:15 HSV (1+2) DNA, quant, PCR, unspecifie d specimen [address] Laboratory, [address] [place] [address], [address], 5 08:33:15 Referral sleep medicine referral 2024 025 [email or web address] Joel Cerrato MD, [address] [place] [address], [address], 5 10:29:36 dermatolog ist referral 2024 025 [place] [address] Yao Avila MD, [address] [place] [address], [address], 5 16:21:26 Procedures None recorded. Surgeries None recorded. Imaging None recorded. Medication Orders CellCept 500 mg tablet 2024 025 [facility], [address] [place], [address], 14:51:06 hydroxychl oroquine 200 mg tablet [address] [place] [address] Pharmacy [address], [address] [place] [address], [address], 14:51:06 fluconazol e 200 mg tablet [address] [place] [address] Pharmacy [facility], [address] [place] [address], [address], 14:51:06 roflumilas t 500 mcg tablet [address] [place] [address] Pharmacy [facility], [address] [place] [address], [address], 14:51:06 tacrolimus 1 mg capsule, immediate- release [address] [place] [address] Pharmacy [facility], [address] [place] [address], [address], 14:51:06 prednisone 10 mg tablet [address] [place] [address], [address] [place] [address], [address], 14:51:06 Patient TargetsNo targets recorded. Patient Instructions Encounter Date Encounter Id Patient Instructions Last Modified By Organization Details Last Modified Time 06/13/2024 [id number] medical record request* - Please fax office notes and biopsy reports. Unknown provider she saw [email or web address] Not available 07/14/2024 09:57:32 Follow-up TBD pending results, Dermatology evaluation [email or web address] Not available 06/13/2024 12:32:28 Reason for Referral Ceo & Co Founder Referral for R ecurrent ulcer of mouth Recurrent mouth sores, ?thrush Referring Physician: Bradley Martinez, Rheumatology, Encounter Date: 06/13/2024 Sleep Medicine Referral for Sleep apnea Referring Physician: Yao Monte, Dermatology, Encounter Date: 06/14/2024 Results Created Date Observation Date Name Description Value Unit Range Abnormal Flag Note LastModifiedBy Organization Detail LastModifiedTime 06/14/19 25 06/14/2024 SURGI TERESO surgical SEE BELOW [place] topat holog y Repor t NAME: MELO [...] Out Date: 06/16 13:37 1 Not Available [facility] [address] [facility], [place], [address], 06/16/2024 13:38:07 06/15/19 25 06/15/2024 SURGI TERESO [...] H&E slide s label ed [facility] [place], [place], S24-3 4653, A1-1, A1-2. Micro scopi c Descr iptio [...] 09:17 Page 1 of 1 Not Available [facility] [address] [place] [address], [address], 06/16/2024 09:18:12 Result Notes None recorded. Procedures Surgical History Date Name Laterality Status Provider Name and Address Organization Details Recorded Time 5 Blade Biopsy completed YAO MONTE MD [address] [place] [address], [address], [facility] 06/14/2024 14:49:22 procedure on knee completed Angela Knox [facility] 06/13/2024 10:47:48 Imaging Results [...] Address Organization Details Last Updated DateTime 5 92249.5 5 g 41.1 kg/m2 144.78 cm 59 /min 104 mm[Hg] 53 mm[Hg] Angela Knox [facility] 10:13:41 Social History Question Answer Notes LastModified by Organizat ion Details LastModified Time Tobacco Smoking Status Former Smoker Angela martinez [facility] 06/13/2024 10:47:13 When Did You Quit Smoking? 6-10yearssin celastcigare tte 2013 [email or web address] Information not available 06/13/2024 Sunscreen Use? No Informatio n not available 06/14/2024 Tanning Bed Use No Informati on not available 06/14/2024 What Was The Date Of Your Most Recent Tobacco Screening? 06/23/2024 [email or web address] Information not available 06/23/2024 Sex: Unknown Functional Status Question Answer Note LastModified by Organizat ion Details LastModified Time What is your level of alcohol consumption? Occasional Information not available 06/13/2024 Mental Status None recorded. Family History Nothing Reported. Medical History Condition Response Diabetes Y Arthritis Y Hypertension Y Asthma Y Gynecological HistoryNo gynecological history recorded. Obstetrics History GPAL:G 0 P 0 0 0 0 Past Encounters Encounter ID Performer Location Encounter Start Date Encounter Closed Date Diagnosis/Indication Diagnosis SNOMED-CT Code Diagnosis ICD10 Code Diagnosis Note [id number] BRADLEY MARTINEZ MD [facility] [address] [address] 06/13/2024 09:52:25 06/13/2024 10:49:11 Anti-nuclear factor detected 720382264 R76.8 1:80 nuclear dense fine speckled. Unclear clinical significan ce. Checked in the setting of recurrent blisters in mouth, tongue, gums.Will repeat JERRY and check serologies related to SLE, Sjogren's today.We discussed nature of JERRY testing. ACR handout on positive JERRY given. Recurrent ulcer of mouth 944108005 K12.1 Painful ulcers constantly affecting tongue, gums, [...] request records and biopsy reports from ENT ([place], [place]). [id number] YAO MONTE MD [address] [address] 06/14/2024 13:01:53 06/14/2024 13:55:48 Lichen planus 9422161 L43.8 The nature of the diagnosis was [...] follow up in 3-4 weeks. Sleep apnea 53656401 G47 .30 Will refer pt to Dr. Jonathan Gonzalez [id number] NIMA ARCE [address] [address] 06/23/2024 15:31:26 06/23/2024 16:27:45 Lichen planus 9439084 L43.8 The nature of the diagnosis was [...] x 1 week. Pt going to call [phone] to set up next appointmen t with Dr. Monte. Seborrheic keratosis 394 010406 L82.1 The nature of the diagnosis was [...] Name 06/14/2024 1 [employer] (MEDICARE SUPPLEMENT) Isidra C Shade [id number] Isidra Smith 08/08/2024 1 [employer] - GOLD PLUS (MEDICARE REPLACEMENT/A DVANTAGE - HMO) Isidrajose Laguerre [id number] Isidra Smith Notes Date Note Type Note [...] that is constant. Has seen ENT in [place]. Had biopsy, which she reports was not [...] Denies other constitutional symptoms. BRADLEY MARTINEZ MD [address] [place], [address], [facility] 06/13/2024 12:36:01 06/14/2024 text/html recurrent ulcers of mouth pt of Dr Juan; onset blisters in her mouth 2 years ago that is constant. Has seen ENT in [place]. Had biopsy, which she reports was not [...] dont use the machine YAO MONTE MD [facility] [place], [address], [facility] 06/14/2024 14:51:01 06/23/2024 text/html lichen planus 2 week f/u tx: prednisone, tacrolimus, hydroxychloroquine, cellcept, roflumilast and fluconazole. reports: I am seeing improvement with the Rx spot of concern location: right hipreports: none NIMA ARCE [address] [place], [address], [facility] 06/29/2024 08:17:16 OBGyn Episode No OBEpisode recorded.
--- NOTE | 2024-11-24 13:00 | CA_ITS ---
FINAL REPORT CLINICAL HISTORY: HTN COMPARISON: None FINDINGS: RIGHT CAROTID: CCA PSV -92 cm/sec ICA PSV -114 cm/sec ICA/CCA PSV ratio -1.2. Comments: Mild plaque disease is noted. LEFTCAROTID: CCA PSV -48. cm/sec ICA PSV -120. cm/sec ICA/CCA PSV ratio -2.9. Comments: Mild plaque disease is noted. Antegrade flow is seen within the vertebral arteries. IMPRESSION: There is no evidence of significant carotid stenosis. However, given the reduced flow in the left common carotid artery, and an intrathoracic focus of left common carotid artery stenosis cannot be excluded and would consider CTA of the chest for further evaluation if clinically indicated. Reviewed, Interpreted and Dictated by Radhika Rosas MD Transcribed by Estefany Marr Authenticated and [facility]
--- NOTE | 2024-11-24 13:45 | CA_ITS ---
APPROVED REPORT EXAM: Comprehensive 2D, Doppler, and color-flow Echocardiogram Cryptologic Supervisor: Maria T Calderon CRT Ht: 4 ft 8 in Wt: 196lbs BSA: 1.76 BP: 114/61 mmHg Indications: CABG, Shortness of Breath, Diabetes, Palpitations, Hyperlipidemia, Hypertension/HDD, Dizziness 2D Dimensions LA Volume 27.50 mL LA Volume Index 15.30 mL/m2 (M/F) 16-34 M-Mode Dimensions RVDd 2.58 cm (0.9-2.6) LA Diam 3.95 cm (1.9-4.0) LVDd 4.24 cm (3.5-5.7) LVDs 2.58 cm (3.5-5.7) IVSd 1.48 cm (0.6-1.1) PWd 1.17 cm (0.6-1.1) EF (Teich) 70.00% FS 39.20% EDV (Teich) 80.40 mL TAPSE 1.64 (<1.7) ESV (Teich) 24.10 mL LV Diastology E Decel Time 247 (160-240 msec) E/A Ratio 0.77 MED A' 8.60 cm/s LAT A' 10.80 cm/s Aortic Valve ISATU Index 1.34 cm2/m2 AoV Peak Roby. 261.0 (50-130 cm/s) AI PHT 433.00 ms AO Peak GR. 27.20 mmHg AO Mean GR. 14.50 (<5 mmHg) AO VTI 39.8 (18-25 cm) ISATU (VTI) 2.41 (2.5-4.5 cm2) Mitral Valve MV A Velocity 82.0 (40-130 cm/s) E/A Ratio 0.77 Pulmonary Valve PV Peak Velocity 110.0 (50-150 cm/s) Tricuspid Valve TR P. Velocity 229.00 cm/s RAP Estimate 10.00 mmHg RVSP 31.00 mmHg Left Ventricle The left ventricle is normal size. The left ventricular systolic function is normal. The left ventricular ejection fraction is within the normal range. There is increased LV wall thickness. There is normal LV segmental wall motion. Diastolic function is indeterminate. LVEF is 55%. Right Ventricle The right ventricle is normal size. The right ventricular systolic function is normal. Atria The left atrium size is normal. The right atrium size is normal. There is no Doppler evidence of interatrial shunt. Aortic Valve Aortic valve is mildly thickened. Mild aortic stenosis is present. ISATU by continuity equation is 2.1 cm???. Peak velocity is 2.4 m/s. Mean AV gradient is 14 mmHg. Max AV gradient 23 mmHg. Mild aortic regurgitation. Mitral Valve The mitral valve is normal in structure. No evidence of mitral valve stenosis. Trace mitral regurgitation. Tricuspid Valve Tricuspid valve is grossly normal in structure and function. Trace tricuspid regurgitation. There is insufficient TR jet to estimate RVSP. Pulmonic Valve The pulmonary valve is normal in structure. Trace pulmonic regurgitation. Great Vessels The aortic root is normal in size. IVC is normal in size and collapses >50% with inspiration. Pericardium There is no pericardial effusion. Other Information Study Quality: Technically Difficult Conclusion Technically difficult study due to poor acoustic windows. Normal biventricular systolic function. Mild AI. Mild (ISATU by continuity equation is 2.1 cm???. Peak velocity is 2.4 m/s. Mean AV gradient is 14 mmHg. Max AV gradient 23 mmHg). Electronically signed by : Ashely David MD 11/30/2024 12:56:44
== END 2024-11-24 23:59 | disposition home or self-care (01) ==
PROVIDERS: PCP Nurse Practitioner; Visit Provider Nurse Practitioner
DX: I35.1 Nonrheumatic aortic (valve) insufficiency (principal); I35.0 Nonrheumatic aortic (valve) stenosis; E11.9 Type 2 diabetes mellitus without complications; E78.5 Hyperlipidemia, unspecified; I10 Essential (primary) hypertension; R93.89 Abnormal findings on diagnostic imaging of other specified body structures; R94.31 Abnormal electrocardiogram [ECG] [EKG]; R09.89 Other specified symptoms and signs involving the circulatory and respiratory systems; R55 Syncope and collapse; Z95.1 Presence of aortocoronary bypass graft
CPT/HCPCS: 93306; 93880

== ENCOUNTER 2024-12-07 11:46 | Outpatient (CLI) | payer MEDICARE, MEDICAID, SELFPAY ==
--- NOTE | 2024-12-07 | CA_ITS ---
APPROVED REPORT Exam: Pharmacologic Technologist: Omayra Giraldo Ht: 4 ft 8 in Wt: 196 lbs BSA: 1.76 m2 Medical History Medications: aspirin, atorvastatin, coreg, cetirizine, vitamin D3, dexamethasone, ferrous gluconate, fluconazole, vibegron, flonase, hydroxzchloroquine, isosorbide mononitrate ER, itrazonazole, levothyroxine, lisinopril, metformin, nystatin, spironolactone, omeprazole, tacrolimus, predinosone, valsartan, roflumilast Stress Test Details Test: Tommy Reason for pharmacologic stress test: physical limitation. HR Resting HR: 64 bpm Max Heart Rate (APMHR): 149.219072 bpm Max HR Achieved: 114 bpm Target HR (85% APMHR): 126.517932 bpm % of APMHR: 76.51 Recovery HR: 91 bpm BP Resting BP: 141.0/56.0 mmHg Max BP: 141.0/56.0 mmHg Recovery BP: 131.0/87.0 mmHg ECG Resting ECG: SR. Inferolateral ST flattening. Stress ECG Conclusion Symptoms: CAMPOS. Chest pain. SOA. Arrhythmias/Ectopy: None. ST-T Changes: Lexiscan. During recover Electronically signed by : Ashely David MD 12/09/2024 17:59:01
--- OUTSIDE RECORDS SUMMARY | 2024-12-07 11:49 | XMS_ITS | Clinical Summary ---
Author Organization [employer] ([place], [place], [place], [place]) Address [address] [place] [address] Care Team Providers Care Yard Cleaner Name Role Phone Unavailable Primary Care Provider [...]
--- OUTSIDE RECORDS SUMMARY | 2024-12-07 11:49 | XMS_ITS | Encounter Summary ---
Author Organization [employer] ([place], [place], [place], [place]) Address [address] [place] [address] Care Team Providers Care Production Operations Manager Name Role Phone Unavailable Primary Care Provider Unavailabl e Encounter Details Date Type Department Care Team (Late st Contact Info) Description 07/06/2018 Transcribed Document [facility] [place] [address] ProviderAdilson MD [address] [place] [address] Social History Tobacco Use Types Packs/Day Years Used Date Smoking Tobacco: Never Assessed Comments Unknown Sex and Gender Information Value Date Recorded Sex Assigned at Female 11/26/2021 5:53 PM CDT Legal Sex Female 5:53 PM CDT Gender Identity Female 11/26/2021 5:53 PM CDT Sexual Orientation Not on file documented as of this encounter Miscellaneous Notes * [employer]ner Conversion Note - Adilson ProviderMD - 07/06/2018 2:46 PM SLIDE ATTENDANT DATE OF SERVICE: 07/06/2018 SLEEP MEDICINE FOLLOWUP [...] previous DME company did not require any vus-in-izdhdl expenses. The net result is that she has not kept her equipment up-to-date and she says her filters are old and probably causing congestion. She is little frustrated and says she cannot even afford filters. Her [place] score is 2/24. PHYSICAL EXAMINATION: VITAL SIGNS: [...] machine. She is frustrated because she has [id number] expenses with her current DME company and [...] have to continue getting her supplies from [employer]. 3. We explained her to how to use her humidifier, which should help prevent waking up with nasal congestion every morning. 4. I will see her back in 10-12 weeks. Jin Osei M.D. Dict: 07/06/2018 14:46:51 Trans: 07/06/2018 23:24:50 CC1: Jin Osei M.D. CC2: Cirilo Berrios MD Electronically signed by [facility] Conversion Stiff Leg Operator Cerner at 09/15/2022 9:49 AM CDT documented in this encounter Plan of Treatment Not on file documented as of this encounter Visit Diagnoses Not on filedocumented in this encounter
--- OUTSIDE RECORDS SUMMARY | 2024-12-07 11:49 | XMS_ITS | Data Portability ---
Author Organization [facility] CRISTIANA Peralta HOXIE CLOSED Address [address] [place] [address] Care Team Providers Care Cloth Shrinker Name Role Phone IGNACIO PRECIADO Primary Care Provider [phone] MIN, BRADLEY Funeral Pre Arrangement Specialist Assessment No assessment recorded. Plan of Treatment Reminders Order Date Submit Date Provider Last Modified By Organization Details Last Modified Time Details Appointments None recorded. Lab surgical pathology study 2024 025 [facility], [address] [place] [address], [id number], 5 18:20:05 Mycobacter ium tuberculos is stimulated gamma interferon , qual, blood 2024 025 [email or web address] [address] [facility], [place], [address], 5 12:37:16 hepatic function panel, serum [address] [facility] [place], [address], 5 15:39:30 JERRY (antinucle ar antibodies ) titer + pattern, ifa, serum [address] [place] [address] Laboratory, [address] [place] [address], [address], 5 08:33:13 sjogren antibody panel, serum [address], [address] [place] [address], [address], 5 08:33:13 C3 (complemen t), serum or plasma [address], [address] [place] [address], [address], 5 08:33:13 C4 (complemen t), serum or plasma [address] [place] [address], [address] [place] [address], [address], 5 08:33:13 protein electropho resis panel, serum or plasma [address] [place] [address], [address] [place] [address], [address], 5 08:33:13 rf (rheumatoi d factor), serum [address] [place] [address], [address] [place] [address], [address], 5 08:33:13 dsDNA Ab, serum [address] [place] [address], [address] [place] [address], [address], 5 08:33:14 laguerre Ab + manager transportation Ab, serum [address] [place] [address], [address] [place] [address], [address], 5 08:33:14 vitamin B12, serum [address] [place] [address], [address] [place] [address], [address], 5 08:33:14 folate, RBC [address] [place] [address] Laboratory, [address] [place] [address], [address], 5 08:33:14 beta-2 glycoprote in 1 Ab, serum [address] [place] [address] Laboratory, [address] [place] [address], [address], 5 08:33:14 anticardio lipin igg+igm Ab, serum [address] [place] [address], [address] [place] [address], [address], 5 08:33:14 lupus anticoagul ant, plasma [address] [place] [address], [address] [place] [address], [address], 5 08:33:14 urinalysis , complete [address] [place] [address], [address] [place] [address], [address], 5 08:33:14 HIV (1+2) Ab screen, serum [address] [place] [address] Laboratory, [address] [place] [address], [address], 5 08:33:14 CBC w/ auto diff [address] [place] [address], [address] [place] [address], [address], 5 08:33:14 CMP, serum or plasma [address] [place] [address], [address] [place] [address], [address], 5 08:33:14 ESR (erythrocy te sedimentat ion rate), blood [address] Laboratory, [address] [place] [address], [address], 5 08:33:15 C reactive protein, QN, serum or plasma [address] Laboratory, [address] [place] [address], [address], 5 08:33:15 celiac disease comprehens dotty panel, serum [address] Laboratory, [address] [place] [address], [address], 5 08:33:15 HSV (1+2) DNA, quant, PCR, unspecifie d specimen [address] Laboratory, [address] [place] [address], [address], 5 08:33:15 Referral sleep medicine referral 2024 025 [email or web address] Joel Cerrato MD, [address] [place] [address], [address], 5 10:29:36 dermatolog ist referral 2024 025 [place] [address] Yao Avila MD, [address] [place] [address], [address], 5 16:21:26 Procedures None recorded. Surgeries None recorded. Imaging None recorded. Medication Orders CellCept 500 mg tablet 2024 025 [facility], [address] [place], [address], 14:51:06 hydroxychl oroquine 200 mg tablet [address] [place] [address] Pharmacy [address], [address] [place] [address], [address], 14:51:06 fluconazol e 200 mg tablet [address] [place] [address] [facility]acy [facility], [address] [place] [address], [address], 14:51:06 roflumilas t 500 mcg tablet [address] [place] [address] [facility]acy [facility], [address] [place] [address], [address], 14:51:06 tacrolimus 1 mg capsule, immediate- release [address] [place] [address] [facility]acy [facility], [address] [place] [address], [address], 14:51:06 prednisone 10 mg tablet [address] [place] [address], [address] [place] [address], [address], 14:51:06 Patient TargetsNo targets recorded. Patient Instructions Encounter Date Encounter Id Patient Instructions Last Modified By Organization Details Last Modified Time 06/13/2024 [id number] medical record request* - Please fax office notes and biopsy reports. Unknown provider she saw Not available 07/14/2024 09:57:32 Follow-up TBD pending results, Dermatology evaluation [email or web address] Not available 06/13/2024 12:32:28 Reason for Referral Registered Nurse Cardiac Telemetry Referral for R ecurrent ulcer of mouth Recurrent mouth sores, ?thrush Referring Physician: Bradley Martinez, Rheumatology, Encounter Date: 06/13/2024 Sleep Medicine Referral for Sleep apnea Referring Physician: Yao Monte, Dermatology, Encounter Date: 06/14/2024 Results Created Date Observation Date Name Description Value Unit Range Abnormal Flag Note LastModifiedBy Organization Detail LastModifiedTime 06/14/19 25 06/14/2024 SURGI TERESO surgical SEE BELOW [place] topat holog y Repor t NAME: MELO [...] Out Date: 06/16 13:37 1 Not Available [facility] [address] [facility], [place], [address], 06/16/2024 13:38:07 06/15/19 25 06/15/2024 SURGI TERESO [...] H&E slide s label ed [facility] [place], [place], S24-3 3003, A1-1, A1-2. Micro scopi c Descr iptio [...] 09:17 Page 1 of 1 Not Available [facility] [address] [place] [address], [address], 06/16/2024 09:18:12 Result Notes None recorded. Procedures Surgical History Date Name Laterality Status Provider Name and Address Organization Details Recorded Time 5 Blade Biopsy completed YAO MONTE MD [address] [place] [address], [address], [facility] 06/14/2024 14:49:22 procedure on knee completed Angela Knox [facility] 06/13/2024 10:47:48 Imaging Results None [...] index (BMI) Body height Heart rate Systolic And Diastolic Provider Name and Address Organization Details Last Updated DateTime 06/13/2024 52735.55 g 41.1 kg/m2 144.78 cm 59 /min 104/53 mm[Hg] Angela Knox [facility] 10:13:41 Social History Question Answer Notes LastModified by Organizat ion Details LastModified Time Tobacco Smoking Status Former Smoker Angela martinez [facility] 06/13/2024 10:47:13 When Did You Quit Smoking? 6-10yearssin celastcigare tte 2013 [email or web address] Information not available 06/13/2024 Sunscreen Use? No Informatio n not available 06/14/2024 Tanning Bed Use No Informati on not available 06/14/2024 What Was The Date Of Your Most Recent Tobacco Screening? 06/23/2024 Information not available 06/23/2024 Sex: Unknown Functional Status Question Answer Note LastModified by Organizat ion Details LastModified Time What is your level of alcohol consumption? Occasional [id number] Information not available 06/13/2024 Mental Status None recorded. Family History Nothing Reported. Medical History Condition Response Arthritis Y Diabetes Y Asthma Y Hypertension Y Gynecological HistoryNo gynecological history recorded. Obstetrics History GPAL:G 0 P 0 0 0 0 Past Encounters Encounter ID Performer Location Encounter Start Date Encounter Closed Date Diagnosis/Indication Diagnosis SNOMED-CT Code Diagnosis ICD10 Code Diagnosis Note [id number] BRADLEY MARTINEZ MD [facility] [address] [address] 06/13/2024 09:52:25 06/13/2024 10:49:11 Anti-nuclear factor detected 235124088 R76.8 1:80 nuclear dense fine speckled. Unclear clinical significan ce. Checked in the setting of recurrent blisters in mouth, tongue, gums.Will repeat JERRY and check serologies related to SLE, Sjogren's today.We discussed nature of JERRY testing. ACR handout on positive JERRY given. Recurrent ulcer of mouth 928575162 K12.1 Painful ulcers constantly affecting tongue, gums, [...] request records and biopsy reports from ENT ([place], [place]). [id number] YAO MONTE MD [facility] [address] [place] [address] 06/14/2024 13:01:53 06/14/2024 13:55:48 Lichen planus 1762204 L43.8 The nature of the diagnosis was [...] follow up in 3-4 weeks. Sleep apnea 79971010 G47 .30 Will refer pt to Dr. Jonathan Gonzalez [id number] NIMA ARCE [address] [address] 06/23/2024 15:31:26 06/23/2024 16:27:45 Lichen planus 1438580 L43.8 The nature of the diagnosis was [...] x 1 week. Pt going to call ext.[phone] to set up next appointmen t with Dr. Monte. Seborrheic keratosis 394 965652 L82.1 The nature of the diagnosis was [...] Name 06/14/2024 1 [employer] (MEDICARE SUPPLEMENT) Isidra Laguerre [id number] Isidra Laguerre 08/08/2024 1 HUMANA - GOLD PLUS (MEDICARE REPLACEMENT/A DVANTAGE - HMO) Isidra Laguerre [id number] Isidra Smith Notes Date Note Type Note [...] that is constant. Has seen ENT in [place]. Had biopsy, which she reports was not [...] Denies other constitutional symptoms. BRADLEY MARTINEZ MD [facility] [place], [address], [facility] 06/13/2024 12:36:01 06/14/2024 text/html recurrent ulcers of mouth pt of Dr Martinez; onset blisters in her mouth 2 years ago that is constant. Has seen ENT in [place]. Had biopsy, which she reports was not [...] dont use the machine YAO MONTE MD [address] [place] [address], [address], [facility] 06/14/2024 14:51:01 06/23/2024 text/html lichen planus 2 week f/u tx: prednisone, tacrolimus, hydroxychloroquine, cellcept, roflumilast and fluconazole. reports: I am seeing improvement with the Rx spot of concern location: right hipreports: none NIMA ARCE [address] [place], [address], [facility] 06/29/2024 08:17:16 OBGyn Episode No OBEpisode recorded.
--- OUTSIDE RECORDS SUMMARY | 2024-12-07 11:49 | XMS_ITS | Encounter Summary ---
Author Organization Healthcare Address [address] [place] [address] Care Team Providers Care Research Biologist Name Role Phone Cirilo Berrios MD Primary Care Provider [phone] Reason for Visit * Reason Comments Med Refill Encounter Details Date Type Department Care Team (Late st Contact Info) Description 01/15/2024 Refill [facility] [address], [address] [place] [address] Suzanna Vásquez, ICE SKATING TEACHER, DNP [address] [place] [address] Social History Tobacco Use Types [...] week 07/07/2023 How often do you attend [facility] or mormonism services? 1 to 4 times per year 07/07/2023 Do you belong to any clubs o r organizations such as gnosticism groups, unions, fraternal or athletic groups, or [...] Recorded Patient Health Questionnaire-2 Score 0 01/06/2024 [facility] of Occupat ional Health - Occupational Stress [...] place to sleep or slept in a senior care (including now)? No 07/07/2023 PHQ-9 Answer Date [...] documented as of this encounter Care Teams Research Biologist Relationship Specialty Start Date End Date Cirilo Berrios MD [address] [place] [address] PCP - General 10/12/20 documented as of this encounter
--- OUTSIDE RECORDS SUMMARY | 2024-12-07 11:49 | XMS_ITS | Clinical Summary ---
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 90 tablet 3 03/28/20 24 Active vitamin D3 125 MCG (5000 UT) capsule capsule Take 1 capsule by mouth Daily. Active valsartan (DIOVAN) 80 MG tabletIndications:C hronic stable angina,Coronary artery disease of [place] artery of [place] heart with stable angina pectoris,Chronic HFrEF (heart failure with reduced ejection fraction),Atheroscl erosis of [place] coronary artery of [place] heart without angina pectoris,Hypertensi on, unspecified type [...] and swallow and Diflucan-no improvement Seen [place] [facility] and diagnosed with geographic tongue Continues [...] artery disease of n ative artery of [place] heart with stable angina pectoris 02/10/2023 Overview (02/10/2023): PCI, CABG x 2 (2002) at [facility] - data deficit [place] (obstructive sleep apnea) 02/10/2023 Overview (02/10/2023): Noncompliant with CPAP Hypothyroidism (acquired) 02/10/2023 Type 2 diabetes mellitus, [facility] long-term current use of insulin 02/10/2023 Overview (02/03/2024): HgbA1c Goal: < 7% Assessment & Plan (02/03/2024 5:07 PM EDT): Patient is not checking blood sugars Currently taking only Jardiance for diabetes [id number] hemoglobin A1c today is 7.6% Microalbumin is [...] to r/o ischemia Pt referred to her case management social worker for f/u Patient verbalizes understanding if she [...] Type Department Care Team Description 09/26/2024 Telephone [facility] [address] [place] [address] Philly Lyons APRN 09/22/2024 Refill [facility] [address] [place] [address] Ethel Laguerre, PAVING CREW FOREMAN Iron deficiency anemia following bariatric surgery from [...] 9:31 AM EDT Coronary artery disease of [place] artery of [place] heart with stable angina pectoris Chronic HFrEF [...] - 200 mg/dL 03/31/2024 7:09 PM EDT [facility] Triglycerides 101 0 - 150 mg/dL 03/31/2024 7:09 PM EDT [facility] HDL Cholesterol 58 40 - 60 mg/dL 03/31/2024 7:09 PM EDT [facility] LDL Cholesterol 110(H) 0 - 100 mg/dL 03/31/2024 7:09 PM EDT [facility] VLDL Cholesterol 18 5 - 40 mg/dL 03/31/2024 7:09 PM T [facility] LDL/HDL Ratio 1.86 03/31/2024 7:09 PM EDT [facility] Blood Venipuncture / Unknown 03/31/2024 9:31 AM EDT 03/31/2024 9:32 AM EDT [facility] - 03/31/2024 7:09 PM EDT Cholesterol [...] ORDERABLES Fi nal Result Performing Organization Address [facility]/ZIP Co de Phone Number [facility]
[address] [place] [address], * (ABNORMAL) POC Glycosylated Hemoglobin (Hb A1C) (02/03/2024 2:15 PM EDT) Hemoglobin A1C 7.6(A) 4.5 - 5.7 % [facility] Lot Number [id number] [facility] Expiration Date 09/02/2025 [facility] Blood 02/03/2024 2:15 PM EDT Ethel Laguerre APRN POINT OF CARE TEST ABI ORTIZ Final Result Performing Organization Address [facility]/ZIP Co de Phone Number [facility]
[address] [place] [address], from Last 3 Months or Most Recently Relevant to Health Maintenance Insurance [employer] MEDICARE ADVANTAGE SNP HMO Care Teams Vending Machine Technician Relationship Specialty Start Date End Date Philly Lyons APRN [address] [place] [address] PCP - General Nurse Practitioner 03/28/24
--- OUTSIDE RECORDS SUMMARY | 2024-12-07 11:49 | XMS_ITS | Referral Summary ---
Author Organization [employer] ([place], [place], [place], [place]) Address [address] [place] [address] Care Team Providers Care Replanter Name Role Phone Unavailable Primary Care Provider [...]
--- OUTSIDE RECORDS SUMMARY | 2024-12-07 11:49 | XMS_ITS | Clinical Summary ---
Author Organization [facility] Address [address] [place] [address] Care Team Providers Care Loader Operator Name Role Phone Cirilo Tracey MD Primary Care Provider [phone] Allergies No known active allergies Medications nitroglycerin [...] MG SL tabletIndications :Coronary artery disease involving [place] coronary artery of [place] heart with angina pectoris (CMS/HCC) Place 1 [...] Asthma 11/15/2019 Coronary artery disease invo lving [place] heart with angina pectoris 06/17/2019 Gout 06/16/2019 [...] How often do you attend chur or judaism services? 1 to 4 times per year 07/07/2023 Do you belong to any clubs o r organizations such as pentecostalism groups, unions, fraternal or athletic groups, or [...] 01/06/2024 [facility] - Occupational Stress Questionnaire Answer Date Recorded [...] place to sleep or slept in a [place] health care facility (including now)? No 07/07/2023 PHQ-9 Answer Date [...] Health Maintenance Due Date Last Done Comments [facility]-Infant/Child/Adol SDOH Screenings 1953 Diabetes: Dental Exam 1963 [facility]- SDOH Screenings 1971 [facility]-Adult SDOH Screenings 1971 CT Colonography 1998 FIT-DNA 1998 FIT 1998 FOBT 1998 Sigmoidoscopy 1998 [facility]-RSV Vaccine: 60+ Years or (1 - Risk 60-74 years 1-dose series) 2013 [facility]-Pneumococcal Vaccine: 50+ Years (2 of 2 - PCV) 02/20/2018 02/20/2017 [facility]-Zoster Vaccines (2 of 2) 01/10/2022 11/15/2021 [facility]-Breast Cancer Screening 10/04/2022 05/0 10/2020, 10/04/2020, 02/26/2017 [facility]-Medicare Annual Wellness (AWV) 10/14/2023 10/13/2022 [id number] Vaccine (1 - 2023- season) 2024 [facility]-Diabetes: Hemoglobin A1C 02/14/2024, 06/05/2023, 10/13/2022, Additional history exists [facility]-Bone Density Scan 02/29/2024 02/28/2022, 022 [facility]-Depression Screening 01/05/2025 01/06/2024, 0312/2023 [facility]-Influenza Vaccine (#1) 01/30/202506/05, 03/18/2022, 06/19/2020, Additional history exists [facility]-DTaP,Tdap,and Td [...] POCT Hemoglobin A1C 10.8 <5.7% Non-Diabet ic [facility] Kit Lot Number [id number] [facility] Kit Expiration Date 06/2025 [facility] Blood Venous blood specimen / Unknown 08/17/2023 9:13 AM EDT Cirilo Tracey MD POINT OF CARE TEST ENTER/ED IT ORDERABLES Final Result [facility] [address] [place] [address] * Hepatitis C antibody (06/05/2023 4:01 PM EST) Hepatitis C Antibody Negative Negative 06/05/2023 6:57 PM EST [facility] Blood Venous blood specimen / Unknown Venipuncture / Unknown 06/05/2023 4:01 PM EST 06/05/2023 4:01 PM EST Cirilo Tracey MD LAB BLOOD ORDERABLES Final Result [facility] [address] [place] [address] * Colonoscopy (12/31/2022 4:57 PM EDT) Anatomical [...] Miguel Michael MD Anesthesiologist [place] Endo Pr Manager Carolyn Willson RN Endo Nurse Parth Arevalo [...] of bowel preparation was evaluated using the Snowflake Bowel Preparation Scale with scores of: right [...] AM EDT [facility] - Nephrology, Bone & Mineral Metabolism [address] [place] [address] Patient Name: Isidra Laguerre Patient Age: 66 y.o. Procedure Information: BMD measurement was performed using [employer]ium Air[employer] DXA System manufactured by [employer]: BMD of the axial skeleton was [...] of Service: 10/04/2020 eferring Phy:Cirilo Tracey, MDAccount: [phone] Dictated By: Terrance Falcon M.D. Verified By: [...] to prior imaging studies perf ormed at [facility] on 03/20/2004 and 02/26/2017. FINDINGS: MAMMOGRAM There [...] femaleDate of Service: 10/04/2020 eferring Phy:Cirilo Tracey, [facility] [phone] [place] [address] FINAL REPORT PROCEDURE: Tomosynthesis Bilateral Screening - bilateral , Screening Mammogram With Cad - bilateral HISTORY: Patient is 65 years old and is seen for screening mammography. The patient has the following family history of breast cancer: sister, at age 20, breast cancer, specified type unknown. COMPARISON: The present examination has been compared to prior imaging studies performed at [facility] on 03/20/2004 and 02/26/2017. FINDINGS: MAMMOGRAM There [...] to prior imaging studies perf ormed at [facility] on 03/20/2004 and 02/26/2017. FINDINGS: MAMMOGRAM There [...] Gender: femaleDate of Service:10/04/2020 eferring Phy:Cirilo Tracey, [facility] [phone] [place] [address] FINAL REPORT PROCEDURE: Tomosynthesis Bilateral Screening - bilateral , Screening Mammogram WithCad - bilateral HISTORY: Patient is 65 years old and is seen for screening mammography. Thepatient has the following family history of breast cancer: sister, at age 20, breast cancer, specified typeunknown. COMPARISON: The present examination has been compared to prior imaging studiesperformed at [facility] on 03/20/2004 and 02/26/2017. FINDINGS: MAMMOGRAM There [...] femaleDate of Service:10/04/2020 eferring Phy:Cirilo Tracey MDAccount: [phone] Dictated By: Terrance Falcon M.D. Verified By: [...] Patient has decision-making capacity? Yes Care Teams Loader Operator Relationship Specialty Start Date End Date Cirilo Tracey MD [address] [place] [address] PCP - General 10/12/20
--- OUTSIDE RECORDS SUMMARY | 2024-12-07 11:49 | XMS_ITS | Patient Health Record ---
Author Organization [address] [place] [address] [place] [address] SURGICAL Address [address] [place], [place] [id number] Support Name Relationship Address Phone LaguerreIsidra Guarantor Unknown [phone] Reason For Referral No Information Plan Of Treatment No Information Insurance Providers Payer Name Payer Address Payer Phone Subscriber Number Group Number Insured Name Patient Relationship to Insured Coverage Start Date Coverage End Date HUMANA O MEDICARE [address] [address] [place], [place] [id number] [phone] [id number] Isidra Laguerre Self - patient is the insured
--- NOTE | 2024-12-07 12:30 | NM_ITS ---
APPROVED REPORT Exam: Nuclear Stress Test Indication: Chest pain, SOB, Palpitations, Fatigue, HTN, DM, High cholesterol, Family history, CAD, Hx of MS, CABG Patient Location: Outpatient Stress Tech: Omayra Zacarias [place] Tech:Yodit Clifford, ARRT, RT (R)(N) Ht: 4 ft 8 in Wt: 194 lbs Bra Size: 40D HR: 60 bpm BP: 141/56 mmHg BSA: 1.75 m2 TID: 1.30 BMI: 43.4 History: Chest pain, SOB, Palpitations, Fatigue, HTN, DM, High cholesterol, Family history, CAD, Hx of MS, CABG Procedure: Patient received 0.4 mg of intravenous Lexiscan, resting heart rate 60 bpm, resting blood pressure 141/56 mmHg, with Lexiscan maximum heart rate achieved was 114 bpm which is % of the maximum predicted heart rate and blood pressure was 137/80 mmHg. With Lexiscan, patient denied any complaint of chest pain. Cardiac Stress and Resting SPECT Images: Cardiac Stress and Resting SPECT images were obtained using technetium 99m Myoview 32.6 mCi stress and 10.76 mCi at rest. The patient was unable to lie on her abdomen. Therefore, prone stress imaging could not be performed. This may affect the diagnostic interpretation of the study findings. Resting and stress imaging in supine positions demonstrate a medium-sized, moderate, predominantly reversible perfusion defects in the lateral and apical LV irving. There is also increase in transient ischemic dilatation ratio (1.30), which may be suggestive of possible multivessel disease or balanced ischemia. Gated imaging demonstrates moderately reduced LV systolic funtion. LVEF is calculated at 39%. Conclusion: Medium-sized, moderate, predominantly reversible perfusion defects in the lateral and apical LV irving. There is also increase in transient ischemic dilatation ratio (1.30), which may be suggestive of possible multivessel disease or balanced ischemia. Gated imaging demonstrates moderately reduced LV systolic funtion. LVEF is calculated at 39%. Electronically signed by : Ashely David MD 12/09/2024 17:57:03
[2024-12-07] MEDS: SODIUM CHLORIDE 0.9% 10ML SYR (RAD ONLY) 10 ML IV ×2 (13:56)
[2024-12-07] MEDS: ISOTOPE MYOVIEW (PER STUDY) 1 DOSE IV (13:56)
== END 2024-12-07 23:59 | disposition home or self-care (01) ==
LOC: RAD 11:47
PROVIDERS: PCP Nurse Practitioner; Visit Provider Nurse Practitioner
DX: R94.39 Abnormal result of other cardiovascular function study (principal); E78.5 Hyperlipidemia, unspecified; E11.9 Type 2 diabetes mellitus without complications; I10 Essential (primary) hypertension; E78.00 Pure hypercholesterolemia, unspecified; I25.10 Atherosclerotic heart disease of native coronary artery without angina pectoris; I25.2 Old myocardial infarction; R55 Syncope and collapse; R42 Dizziness and giddiness; R94.31 Abnormal electrocardiogram [ECG] [EKG]; R00.2 Palpitations; Z95.1 Presence of aortocoronary bypass graft
CPT/HCPCS: 78452; 93016; 93017; 93018; A9502; J2785

== ENCOUNTER 2024-12-15 15:46 | Outpatient (POV) | payer MEDICARE, MEDICAID, SELFPAY ==
--- OUTSIDE RECORDS SUMMARY | 2024-12-15 15:48 | XMS_ITS | Encounter Summary ---
Author Organization [employer] ([place], [place], [place], [place]) Address [address] [place] [address] Care Team Providers Care Ribbon Lapper Tender Name Role Phone Unavailable Primary Care Provider Unavailabl e Encounter Details Date Type Department Care Team (Late st Contact Info) Description 07/06/2018 Transcribed Document [facility] [place] Family Medicine [facility] [place] [address] ProviderAdilson MD [address] [place] [id number] Social History Tobacco Use Types Packs/Day Years [...] - Adilson ProviderMD - 07/06/2018 2:46 PM RECREATION PROGRAM COORDINATOR DATE OF SERVICE: 07/06/2018 SLEEP MEDICINE FOLLOWUP [...] previous DME company did not require any oen-kd-sjxtqi expenses. The net result is that she has not kept her equipment up-to-date and she says her filters are old and probably causing congestion. She is little frustrated and says she cannot even afford filters. Her [place] score is 2/24. PHYSICAL EXAMINATION: VITAL SIGNS: [...] machine. She is frustrated because she has ggx-fo-dkqfrg expenses with her current DME company and [...] have to continue getting her supplies from [employer]. 3. We explained her to how to use her humidifier, which should help prevent waking up with nasal congestion every morning. 4. I will see her back in 10-12 weeks. Jin Osei M.D. Dict: 07/06/2018 14:46:51 Trans: 07/06/2018 23:24:50 CC1: Jin Osei M.D. CC2: Cirilo Berrios MD Electronically signed by Armando [employer] Conversion Reversal Print Inspector Cerner at 09/15/2022 9:49 AM CDT documented in this encounter Plan of Treatment Not on file documented as of this encounter Visit Diagnoses Not on filedocumented in this encounter
--- OUTSIDE RECORDS SUMMARY | 2024-12-15 15:48 | XMS_ITS | Clinical Summary ---
Author Organization [facility] Address [address] [place] [address] Care Team Providers Care Container Washer Machine Name Role Phone Cirilo Tracey MD Primary Care Provider [phone] Allergies No known active allergies Medications nitroglycerin [...] MG SL tabletIndications :Coronary artery disease involving [place] coronary artery of [place] heart with angina pectoris (CMS/HCC) Place 1 [...] Asthma 11/15/2019 Coronary artery disease invo lving [place] heart with angina pectoris 06/17/2019 Gout 06/16/2019 [...] How often do you attend chur or mandaen services? 1 to 4 times per year 07/07/2023 Do you belong to any clubs o r organizations such as faith groups, unions, fraternal or athletic groups, or [...] Recorded Patient Health Questionnaire-2 Score 0 01/06/2024 [facility] Questionnaire Answer Date [...] place to sleep or slept in a chcf (including now)? No 07/07/2023 PHQ-9 Answer Date [...] 02/26/2017 [facility]-Medicare Annual Wellness (AWV) 10/14/2023 10/13/2022 [id number] Vaccine (1 - 2023- season) 2024 [facility]-Diabetes: [...] POCT Hemoglobin A1C 10.8 <5.7% Non-Diabet ic [facility] Kit Lot Number [id number] [facility] Kit Expiration Date 06/2025 [facility] Blood Venous blood specimen / Unknown 08/17/2023 9:13 AM EDT Cirilo Tracey MD POINT OF CARE TEST ENTER/ED IT ORDERABLES Final Result [facility] [address] [place] [address] * Hepatitis C antibody (06/05/2023 4:01 PM EST) Hepatitis C Antibody Negative Negative 06/05/2023 6:57 PM EST [facility] Blood Venous blood specimen / Unknown Venipuncture / Unknown 06/05/2023 4:01 PM EST 06/05/2023 4:01 PM EST Cirilo Tracey MD LAB BLOOD ORDERABLES Final Result [facility] [address] [place] [address] * Colonoscopy (12/31/2022 4:57 PM EDT) Anatomical [...] Miguel Michael MD Anesthesiologist [place] Endo Ambulatory Analyst Carolyn Willson RN Endo Nurse Parth Arevalo [...] of bowel preparation was evaluated using the [place] Bowel Preparation Scale with scores of: right [...] Soraida ging Narrative 02/28/2022 10:43 AM EDT [facility] - Nephrology, Bone & Mineral Metabolism [address] [place] [address] Patient Name: Isidra Laguerre Patient Age: 66 y.o. Procedure Information: BMD measurement was performed using RRT GlobalXA DXA System manufactured by [employer]: BMD of the axial skeleton was [...] of Service: 10/04/2020 eferring Phy:Cirilo Tracey, MDAccount: [phone] Dictated By: Terrance Falcon M.D. Verified By: [...] to prior imaging studies perf ormed at [facility] on 03/20/2004 and 02/26/2017. FINDINGS: MAMMOGRAM [...] femaleDate of Service: 10/04/2020 eferring Phy:Cirilo Tracey, [facility] [phone] [place] [address] FINAL REPORT PROCEDURE: Tomosynthesis Bilateral Screening - bilateral , Screening Mammogram With Cad - bilateral HISTORY: Patient is 65 years old and is seen for screening mammography. The patient has the following family history of breast cancer: sister, at age 20, breast cancer, specified type unknown. COMPARISON: The present examination has been compared to prior imaging studies performed at [facility] on 03/20/2004 and 02/26/2017. FINDINGS: MAMMOGRAM [...] to prior imaging studies perf ormed at [facility] on 03/20/2004 and 02/26/2017. FINDINGS: MAMMOGRAM [...] Gender: femaleDate of Service:10/04/2020 eferring Phy:Cirilo Tracey, [facility]: [phone] [place] [address] FINAL REPORT PROCEDURE: Tomosynthesis Bilateral Screening - bilateral , Screening Mammogram WithCad - bilateral HISTORY: Patient is 65 years old and is seen for screening mammography. Thepatient has the following family history of breast cancer: sister, at age 20, breast cancer, specified typeunknown. COMPARISON: The present examination has been compared to prior imaging studiesperformed at [facility] on 03/20/2004 and 02/26/2017. FINDINGS: MAMMOGRAM [...] femaleDate of Service:10/04/2020 eferring Phy:Cirilo Tracey MDAccount: [phone] Dictated By: Terrance Falcon M.D. Verified By: [...] Patient has decision-making capacity? Yes Care Teams Container Washer Machine Relationship Specialty Start Date End Date Cirilo Tracey MD [address] [place] [address] PCP - General 10/12/20
--- OUTSIDE RECORDS SUMMARY | 2024-12-15 15:48 | XMS_ITS | Clinical Summary ---
Author Organization [employer] ([place], [place], [place], [place]) Address [address] [place] [address] Care Team Providers Care Mat Roller Name Role Phone Unavailable Primary Care Provider [...]
--- OUTSIDE RECORDS SUMMARY | 2024-12-15 15:48 | XMS_ITS | Encounter Summary ---
Author Organization [facility] Address [address] [place] [address] Care Team Providers Care Feather Boner Name Role Phone Cirilo Berrios MD Primary Care Provider [phone] Reason for Visit * Reason Comments Med Refill Encounter Details Date Type Department Care Team (Late st Contact Info) Description 01/15/2024 Refill [facility] [address] [place] [address] Suzanna Vásquez, TEST PILOT, DNP [address] [place] [address] Social History Tobacco Use Types [...] week 07/07/2023 How often do you attend [facility] or zoroastrian services? 1 to 4 times per year 07/07/2023 Do you belong to any clubs o r organizations such as denominational groups, unions, fraternal or athletic groups, or [...] Recorded Patient Health Questionnaire-2 Score 0 01/06/2024 [facility] - Occupational [...] place to sleep or slept in a nursing home (including now)? No 07/07/2023 PHQ-9 Answer Date [...] documented as of this encounter Care Teams Feather Boner Relationship Specialty Start Date End Date Cirilo Berrios MD [address] [place] [address] PCP - General 10/12/20 documented as of this encounter
--- OUTSIDE RECORDS SUMMARY | 2024-12-15 15:49 | XMS_ITS | Referral Summary ---
Author Organization [employer] ([place], [place], [place], [place]) Address [address] [place] [address] Care Team Providers Care Labor Supervisor Name Role Phone Unavailable Primary Care Provider [...]
--- OUTSIDE RECORDS SUMMARY | 2024-12-15 15:49 | XMS_ITS | Clinical Summary ---
Author Organization [facility] Address [address] [place] [address] Care Team Providers Care Student Officer Name Role Phone Philly Lyons APRN Primary Care Provider [phone] Allergies No known active allergies Medications albuterol [...] 25 MG tabletIndications:C oronary artery disease of [place] artery of [place] heart with stable angina pectoris,Chronic HFrEF (heart failure with reduced ejection fraction) Take 1 tablet by mouth Daily. 90 tablet 3 03/28/20 24 Active isosorbide mononitrate (IMDUR) 30 MG 24 hr tabletIndications:C oronary artery disease of [place] artery of [place] heart with stable angina pectoris,Chronic HFrEF (heart failure with reduced ejection fraction) Take 1 tablet by mouth Every Morning. 90 tablet 3 03/28/20 24 Active vitamin D3 125 MCG (5000 UT) capsule capsule Take 1 capsule by mouth Daily. 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,Chronic HFrEF (heart failure with reduced ejection fraction),Atheroscl erosis of [place] coronary artery of [place] heart without angina pectoris,Hypertensi on, unspecified type [...] artery disease of n ative artery of [place] heart with stable angina pectoris 02/10/2023 Overview (02/10/2023): PCI, CABG x 2 (2002) at [facility] - data deficit CAMERON (obstructive sleep apnea) 02/10/2023 Overview (02/10/2023): Noncompliant with CPAP Hypothyroidism (acquired) 02/10/2023 Type 2 diabetes mellitus, [facility] long-term current use of insulin 02/10/2023 Overview (02/03/2024): HgbA1c Goal: < 7% Assessment & Plan (02/03/2024 5:07 PM EDT): Patient is not checking blood sugars Currently taking only Jardiance for diabetes Encpa-tw-ylvy hemoglobin A1c today is 7.6% Microalbumin is [...] to r/o ischemia Pt referred to her reconstructive surgeon for f/u Patient verbalizes understanding if she [...] Type Department Care Team Description 09/26/2024 Telephone [facility] [address] [facility] [place] [address] Philly Lyons APRN 09/22/2024 Refill [facility] [address] [facility] [place] [address] Ethel Laguerre, TOOL CARRIER Iron deficiency anemia following bariatric surgery from [...] 07/30, 08/17/2023, Additional history exists INFLUENZA VACCINE 03/01/2025 06/05/2023, , 06/19/2020, Additional history exists LIPID PANEL 03/31/2025 03/31/2024, 08/2023, 07/29/2023, Additional history exists TDAP/TD VACCINES (2 - Td or Tdap) 02/20/2027 017 COLONOSCOPY 12/31/2032 12/31/2022, 07/2022, 06/25/2017 COLORECTAL CANCER SCREENING 12/31/2032 HEPATITIS C SCREENING Completed 06/05/2023, 024 Procedures Procedure Name Priority Date/Time Associated Diagnosis Comments LIPID PANEL Routine 03/31/2024 9:31 AM EDT Coronary artery disease of [place] artery of [place] heart with stable angina pectoris Chronic HFrEF [...] - 200 mg/dL 03/31/2024 7:09 PM EDT [facility] Triglycerides 101 0 - 150 mg/dL 03/31/2024 7:09 PM EDT [facility] HDL Cholesterol 58 40 - 60 mg/dL 03/31/2024 7:09 PM EDT [facility] LDL Cholesterol 110(H) 0 - 100 mg/dL 03/31/2024 7:09 PM EDT [facility] VLDL Cholesterol 18 5 - 40 mg/dL 03/31/2024 7:09 PM T [facility] LDL/HDL Ratio 1.86 03/31/2024 7:09 PM EDT [facility] Blood Venipuncture / Unknown 03/31/2024 9:31 AM EDT 03/31/2024 9:32 AM EDT [facility] - 03/31/2024 7:09 PM EDT Cholesterol [...] ORDERABLES Fi nal Result Performing Organization Address [facility]/ZIP Co de Phone Number [facility]
[address] [place] [address], * (ABNORMAL) POC Glycosylated Hemoglobin (Hb A1C) (02/03/2024 2:15 PM EDT) Hemoglobin A1C 7.6(A) 4.5 - 5.7 % [facility] Lot Number [id number] [facility] Expiration Date 09/02/2025 [facility] Blood 02/03/2024 2:15 PM EDT Ethel Laguerre APRN POINT OF CARE TEST ABI ORTIZ Final Result Performing Organization Address [facility]/ZIP Co de Phone Number [facility]
[address] [place] [address], from Last 3 Months or Most Recently Relevant to Health Maintenance Insurance [employer] MED[employer]AGE [employer] HMO Care Teams Student Officer Relationship Specialty Start Date End Date Philly Lyons APRN [address] [place] [address] PCP - General Nurse Practitioner 03/28/24
--- OUTSIDE RECORDS SUMMARY | 2024-12-15 15:49 | XMS_ITS | Data Portability ---
Author Organization [facility] CRISTIANA Peralta ORIENT CLOSED Address [address] [place] [address] Care Team Providers Care Director Of Catering Name Role Phone IGNACIO PRECIADO Primary Care Provider [phone] MIN, BRADLEY Bankruptcy Attorney Assessment No assessment recorded. Plan of Treatment Reminders Order Date Submit Date Provider Last Modified By Organization Details Last Modified Time Details Appointments None recorded. 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 , qual, blood 2024 025 [email or web address] [address] [facility] Juventino Lizama, [place], [address], 5 12:37:16 hepatic function panel, serum [address] [facility] [place], [address], 5 15:39:30 JERRY (antinucle ar antibodies ) titer + pattern, ifa, serum [address] [place] [address] Laboratory, [address] [place] [address], [id number], 5 08:33:13 sjogren antibody panel, serum [address], [address] [place] [address], [address], 5 08:33:13 C3 (complemen t), serum or plasma [address], [address] [place] [address], [address], 5 08:33:13 C4 (complemen t), serum or plasma [address] [place] [address], [address] [place] [address], [address], 5 08:33:13 protein electropho resis panel, serum or plasma [address] [place] [address], [address] [place] [address], [address], 5 08:33:13 rf (rheumatoi d factor), serum [address] [place] [address], [address] [place] [address], [address], 5 08:33:13 dsDNA Ab, serum [address] [place] [address], [address] [place] [address], [address], 5 08:33:14 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, serum [address] [place] [address], [address] [place] [address], [address], 5 08:33:14 vitamin B12, serum [address] [place] [address], [address] [place] [address], [address], 5 08:33:14 folate, RBC [address] [place] [address] Laboratory, [address] [place] [address], [address], 5 08:33:14 beta-2 glycoprote in 1 Ab, serum [address] [place] [address] Laboratory, [address] [place] [address], [address], 5 08:33:14 anticardio lipin igg+igm Ab, serum [address] [place] [address], [address] [place] [address], [address], 5 08:33:14 lupus anticoagul ant, plasma [address] [place] [address], [address] [place] [address], [address], 5 08:33:14 urinalysis , complete [address] [place] [address], [address] [place] [address], [address], 5 08:33:14 HIV (1+2) Ab screen, serum [address] [place] [address] Laboratory, [address] [place] [address], [address], 5 08:33:14 CBC w/ auto diff [address] [place] [address], [address] [place] [address], [address], 5 08:33:14 CMP, serum or plasma [address] [place] [address], [address] [place] [address], [address], 5 08:33:14 ESR (erythrocy te sedimentat ion rate), blood [address] Laboratory, [address] [place] [address], [address], 5 08:33:15 C reactive protein, QN, serum or plasma [address] Laboratory, [address] [place] [address], [address], 5 08:33:15 celiac disease comprehens dotty panel, serum [address] Laboratory, [address] [place] [address], [address], 5 08:33:15 HSV (1+2) DNA, quant, PCR, unspecifie d specimen [address] Laboratory, [address] [place] [address], [address], 5 08:33:15 Referral sleep medicine referral 2024 025 [email or web address] Joel Cerrato MD, [address] [place] [address], [address], 5 10:29:36 dermatolog ist referral 2024 025 [email or web address] [address] Yao Avila MD, [address] [place] [address], [address], 5 16:21:26 Procedures None recorded. Surgeries None recorded. Imaging None recorded. Medication Orders CellCept 500 mg tablet 2024 025 [facility] [place], [address], 14:51:06 hydroxychl oroquine 200 mg tablet [address] [place] [address] Pharmacy [address], [address] [place] [address], [address], 14:51:06 fluconazol e 200 mg tablet [address] [place] [address] Pharmacy [facility], [address] [place] [address], [address], 14:51:06 roflumilas t 500 mcg tablet [address] [place] [address] [facility]acy [facility], [address] [place] [address], [address], 14:51:06 tacrolimus 1 mg capsule, immediate- release [address] [place] [address] Pharmacy [facility], [address] [place] [address], [address], 14:51:06 prednisone 10 mg tablet [address] [place] [address], [address] [place] [address], [address], 14:51:06 Patient TargetsNo targets recorded. Patient Instructions Encounter Date Encounter Id Patient Instructions Last Modified By Organization Details Last Modified Time 06/13/2024 [id number] medical record request* - Please fax office notes and biopsy reports. Unknown provider she saw [email or web address] Not available 07/14/2024 09:57:32 Follow-up TBD pending results, Dermatology evaluation [email or web address] Not available 06/13/2024 12:32:28 Reason for Referral Business Office Director Referral for R ecurrent ulcer of mouth Recurrent mouth sores, ?thrush Referring Physician: Bradley Martinez, Rheumatology, Encounter Date: 06/13/2024 Sleep Medicine Referral for Sleep apnea Referring Physician: Yao Monte, Dermatology, Encounter Date: 06/14/2024 Results Created Date Observation Date Name Description Value Unit Range Abnormal Flag Note LastModifiedBy Organization Detail LastModifiedTime 06/14/19 25 06/14/2024 SURGI TERESO surgical SEE BELOW [place] topat holog y Repor t NAME: MELO [...] 1 Not Available [facility] [address], [place], [address], 06/16/2024 13:38:07 06/15/19 25 06/15/2024 SURGI TERESO [...] H&E slide s label ed [facility] [place], [place], S24-3 4253, A1-1, A1-2. Micro scopi c Descr iptio [...] Not Available [facility] [address] [place] [address], [id number], 06/16/2024 09:18:12 Result Notes None recorded. Procedures Surgical History Date Name Laterality Status Provider Name and Address Organization Details Recorded Time 5 Blade Biopsy completed YAO MONTE MD [address] [place] [address], [phone], [facility] 06/14/2024 14:49:22 procedure on knee completed Angela Knox [facility] 06/13/2024 10:47:48 Imaging Results None recorded. Procedure [...] Address Organization Details Last Updated DateTime 06/13/2024 72762.55 g 41.1 kg/m2 144.78 cm 59 /min 104/53 mm[Hg] Angela Knox [facility] 10:13:41 Social History Question Answer Notes LastModified by Organizat ion Details LastModified Time Tobacco Smoking Status Former Smoker Angela martinez [facility] 06/13/2024 10:47:13 When Did You Quit Smoking? 6-10yearssin celastcigare tte 2013 [email or web address] Information not available 06/13/2024 Sunscreen Use? No Informatio n not available 06/14/2024 Tanning Bed Use No Informati on not available 06/14/2024 What Was The Date Of Your Most Recent Tobacco Screening? 06/23/2024 [email or web address] Information not available 06/23/2024 Sex: Unknown Functional Status Question Answer Note LastModified by Organizat ion Details LastModified Time What is your level of alcohol consumption? Occasional [email or web address] Information not available 06/13/2024 Mental Status None recorded. Family History Nothing Reported. Medical History Condition Response Diabetes Y Arthritis Y Hypertension Y Asthma Y Gynecological HistoryNo gynecological history recorded. Obstetrics History GPAL:G 0 P 0 0 0 0 Past Encounters Encounter ID Performer Location Encounter Start Date Encounter Closed Date Diagnosis/Indication Diagnosis SNOMED-CT Code Diagnosis ICD10 Code Diagnosis Note [id number] BRADLEY MARTINEZ MD [facility] [address] [address] 06/13/2024 09:52:25 06/13/2024 10:49:11 Anti-nuclear factor detected [id number] R76.8 1:80 nuclear dense fine speckled. Unclear clinical significan ce. Checked in the setting of recurrent blisters in mouth, tongue, gums.Will repeat JERRY and check serologies related to SLE, Sjogren's today.We discussed nature of JERRY testing. ACR handout on positive JERRY given. Recurrent ulcer of mouth [id number] K12.1 Painful ulcers constantly affecting tongue, gums, [...] request records and biopsy reports from ENT ([place], [place]). [id number] YAO MONTE MD [facility] [address] [place] [address] 06/14/2024 13:01:53 06/14/2024 13:55:48 Lichen planus [id number] L43.8 The nature of the diagnosis was [...] follow up in 3-4 weeks. Sleep apnea 26293120 G47 .30 Will refer pt to Dr. Jonathan Gonzalez [id number] NIMA ARCE [address] [address] 06/23/2024 15:31:26 06/23/2024 16:27:45 Lichen planus 3451020 L43.8 The nature of the diagnosis was [...] x 1 week. Pt going to call [phone] to set up next appointmen t with Dr. Monte. Seborrheic keratosis [id number] 184168 L82.1 The nature of the diagnosis was [...] 06/14/2024 1 [employer] (MEDICARE SUPPLEMENT) Isidra Laguerre [id number] Isidra Laguerre 08/08/2024 1 [employer] - GOLD PLUS (MEDICARE REPLACEMENT/A DVANTAGE - HMO) Isidra Laguerre [id number] Isidra Smith Notes Date Note Type Note [...] that is constant. Has seen ENT in [place]. Had biopsy, which she reports was not [...] Denies other constitutional symptoms. BRADLEY MARTINEZ MD [facility] [place], [address], [facility] 06/13/2024 12:36:01 06/14/2024 text/html recurrent ulcers of mouth pt of Dr Martinez; onset blisters in her mouth 2 years ago that is constant. Has seen ENT in [place]. Had biopsy, which she reports was not [...] dont use the machine YAO MONTE MD [address] [place] [address], [address], [facility] 06/14/2024 14:51:01 06/23/2024 text/html lichen planus 2 week f/u tx: prednisone, tacrolimus, hydroxychloroquine, cellcept, roflumilast and fluconazole. reports: I am seeing improvement with the Rx spot of concern location: right hipreports: none NIMA ARCE [address] [place], [address], [facility] 06/29/2024 08:17:16 OBGyn Episode No OBEpisode recorded.
[2024-12-15 16:04] VITALS: BP 177/99; PULSE 79; RESP 18; O2SAT 99; BMI 42.8
--- NOTE | 2024-12-15 16:23 | EXP.PAIN.SOA ---
[facility] Disclaimer: The information contained in this section may have been updated after the patient was seen, as this information can be updated by other users. Medical History Tongue lesion Hoarseness of voice Pain with swallowing Difficulty swallowing Oral lesion blisters in mouth Surgical History History of uvulectomy History of nasal surgery History of cholecystectomy History of gastric bypass History of two vessel coronary artery bypass graft History of knee replacement Family History Other Unknown family medical history Social History Smoking Status: Former smoker tobacco type: cigarettes smoking status stop date: 2018 alcohol intake: current alcohol intake frequency: holidays/special occasions only current occupational status: other Travel in the last 8 weeks?: None PM Subjective & Objective Subjective Subjective:: Patient is a pleasant 69-year-old female who presents today for follow-up. She does state her pain today a 10 out of 10. She still states that it is still the same pain she saw's last time with the right ring finger and left index finger pain. She states this is continued to get along over the last 5 months and is just overall unbearable. She states the pain is constant and does interfere with her ability perform activities of daily living such as cooking and cleaning. Patient is still having to follow-up with cardiology for the possibility of additional procedures including a heart scan coming up. Patient did get the compounded cream and states it does help with other areas of pain like her knees and her feet however did not seem to make much difference on her fingers. Patient is asking if we can try injections. Her Franko has been reviewed and is appropriate. Review of Systems: General: No recent weight changes, no fever, no sleep disturbances Respiratory: No cough, no shortness of air, no recurring pulmonary infections Cardiovascular/peripheral vascular: No chest pain, no palpitations, no edema, no shortness of breath Gastrointestinal: No new onset incontinence, normal bowel movements reported Genitourinary: No new onset incontinence Musculoskeletal: Right ring finger pain, left index finger pain Psychiatric: [Normal mood/affect] Neurological: [Denies weakness in extremities], [denies balance issues] Pain at rest (0-10 scale): 10 Objective Objective:: Physical Exam: General: Alert and oriented x3, no acute distress, pleasant and cooperative Lungs: Respirations even and unlabored, symmetrical chest expansion Eyes: PERRL Musculoskeletal: Flexion and extension of cervical [spine] somewhat guarded secondary to pain, [antalgic gait noted] point tenderness with movement of her right ring finger and left index finger Neurological: Speech clear, no gross sensory deficit Has patient had previous pain injection?: No Conservative treatment options previously tried: Home exercise plan Length of treatment: Longer than 12 weeks Meds Home Medications and Allergies Home Medications ?Medication ?Instructions ?Recorded ?Confirmed ?Type aspirin 81 mg tablet,delayed 81 mg PO DAILY 03/30/24 12/15/24 History release atorvastatin 80 mg tablet 80 mg PO HS 03/30/24 12/15/24 History blood sugar diagnostic (True #10 ea 03/30/24 12/15/24 History Metrix Glucose Test Strip) carvedilol 6.25 mg tablet 6.25 mg PO BID 03/30/24 12/15/24 History cetirizine 10 mg tablet 10 mg PO DAILY PRN ALLERGIES 03/30/24 12/15/24 History cholecalciferol (vitamin D3) 1,250 50,000 unit PO WEEKLY 03/30/24 12/15/24 History mcg (50,000 unit) capsule dexamethasone 0.5 mg/5 mL oral 0.5 mg (5 mL) PO BID swish and 03/30/24 12/15/24 Rx elixir spit for mouth blisters #300 mL ferrous gluconate 324 mg (38 mg 324 mg PO DAILY 03/30/24 12/15/24 History iron) tablet fluticasone propionate 50 2 spray intranasal BID 03/30/24 12/15/24 History mcg/actuation nasal spray,suspension isosorbide mononitrate 30 mg 30 mg PO DAILY BLOOD PRESSURE 03/30/24 12/15/24 History tablet,extended release 24 hr itraconazole 100 mg capsule 100 mg PO DAILY 03/30/24 12/15/24 History levothyroxine 50 mcg tablet 50 mcg PO DAILY 03/30/24 12/15/24 History lisinopril 20 mg tablet 20 mg PO DAILY 03/30/24 12/15/24 History metformin 500 mg tablet 500 mg PO TIDWMEAL 03/30/24 12/15/24 History nystatin 100,000 unit/mL oral 5 ml mucous membrane BID PRN Mouth 03/30/24 12/15/24 History suspension Irritation omeprazole 20 mg capsule,delayed 20 mg PO DIRECTED GERD 03/30/24 12/15/24 History release spironolactone 25 mg tablet 25 mg PO DAILY 03/30/24 12/15/24 History vibegron 75 mg tablet (Gemtesa) 75 mg PO DAILY 03/30/24 12/15/24 History cholecalciferol (vitamin D3) 125 125 mcg PO DAILY 06/15/24 12/15/24 History mcg (5,000 unit) capsule fluconazole 150 mg tablet 150 mg PO Q3D 06/15/24 12/15/24 History hydroxychloroquine 200 mg tablet 200 mg PO DIRECTED 06/15/24 12/15/24 History metformin 500 mg tablet,extended 500 mg PO BID 06/15/24 12/15/24 History release 24 hr prednisone 10 mg tablet 10 mg PO DIRECTED 06/15/24 12/15/24 History roflumilast 500 mcg tablet 500 mcg PO DAILY 06/15/24 12/15/24 History tacrolimus 1 mg capsule, 1 mg PO DAILY 06/15/24 12/15/24 History immediate-release valsartan 80 mg tablet 80 mg PO DAILY 06/15/24 12/15/24 History albuterol sulfate 2.5 mg/3 mL 2.5 mg inhalation Q6H PRN 12/15/24 12/15/24 History (0.083 %) solution for nebulization Breathing Problems gabapentin 100 mg capsule 100 mg PO DAILY 12/15/24 12/15/24 History mycophenolate mofetil 500 mg tablet 500 mg PO BID 12/15/24 12/15/24 History nitroglycerin 0.4 mg sublingual 0.4 mg buccal NEEDED PRN Chest 12/15/24 12/15/24 History tablet Pain ondansetron HCl 4 mg tablet 4 mg PO Q6H PRN Nausea 12/15/24 12/15/24 History pantoprazole 40 mg tablet,delayed 40 mg PO ONCE 12/15/24 12/15/24 History release sucralfate 1 gram tablet 1 g PO BID 12/15/24 12/15/24 History New Prescriptions to Start Prescriptions: Allergies Allergy/AdvReac Type Severity Reaction Status Date / Time No Known Allergies Allergy Verified 12/15/24 14:04 Assessment and Plan *Assessment and plan (1) Pain in finger of both hands: Status: Acute Category: Medical Code(s): M79.645 - Pain in left finger(s); M79.644 - Pain in right finger(s) (2) Trigger finger: Status: Acute Category: Medical Code(s): M65.30 - Trigger finger, unspecified finger Plan Patient continues to have significant pain into specific fingers. I did discuss with her that she may benefit from a right trigger finger injection and a left digital nerve block. Risk and benefits were discussed with the patient and she would like to proceed forward with this plan of care. I did discuss with her due to her ongoing heart related issues and possible blockages that we would reach out to cardiology to confirm that they have no objections to these injections. Patient acknowledges understanding agrees with this plan of care. We will give her a tentative date and time for these injections in we will contact her if there are any contraindications and that we cannot do these from cardiology. Patient agrees. Patient will be scheduled for a right trigger finger injection and left digital nerve block without fluoroscopic or ultrasound guidance. Patient has tried and failed oral medication, heat and ice, topicals, at home stretching exercise for longer than 12 weeks. Patient has had this pain present for longer than 5 months. Patient has been instructed to contact the clinic with any concerns before the next appointment. Dr. Garcia has reviewed this note and agrees with this plan of care. This note was dictated using voice recognition software and make contain errors or omissions. All injections are used with Lidocaine, Bupivacaine and dexamethasone. Occasionally urine drug screen is needed to verify patient's compliance with our office pain contract. This is ordered based off specific treatments related to chronic pain with the potential to abuse certain medications.
== END 2024-12-15 23:59 | disposition home or self-care (01) ==
LOC: SC.PAIN 15:47
PROVIDERS: PCP Nurse Practitioner; Visit Provider Nurse Practitioner Family
DX: M65.341 Trigger finger, right ring finger (principal); M65.322 Trigger finger, left index finger
CPT/HCPCS: 99212; G0463

== ENCOUNTER 2024-12-28 07:57 | Day surgery (SDC) | payer MEDICARE, MEDICAID, SELFPAY ==
[2024-12-28] VITALS (15 sets, daily range): BP systolic 122–164; BP diastolic 53–90; PULSE 54–96; RESP 18–20; TEMP 36.9; O2SAT 96–100; BMI 42.8
--- NOTE | 2024-12-28 07:36 | IR_ITS ---
APPROVED REPORT Patient Location: Outpatient City Collector: AYLIN Crane RT (R) PROCEDURES Left heart catheterization Left ventriculogram Selective coronary angiogram Left internal mammary angiography Right internal mammary angiography Selective engagement of the saphenous vein graft to the LAD Selective engagement of the saphenous vein graft to the ramus intermedius Intravascular ultrasound to the LAD Drug-eluting stent deployment to the ostial left main artery extending into the proximal LAD INDICATION Abnormal Myoview, Systolic heart failure ejection fraction 39%, Coronary artery disease, History of coronary artery bypass surgery, Angiographic ambiguity of the ostial and proximal LAD, MLA less than 3 mm??? in the proximal LAD Informed consent was obtained prior to the procedure. COMPLICATIONS NONE Estimated Blood Loss: LESS THAN 10 ML TECHNIQUE One percent lidocaine used to anesthetize the right groin. The right femoral artery was accessed via the Seldinger technique and a 5 Spanish sheath was placed in the right femoral artery. A JL 4, JR4 catheter were used to perform left heart catheterization, left ventriculogram selective coronary angiography as well as selective engagement of the 2 vein grafts and the left internal mammary artery. No vein grafts were open and appeared to be ostially occluded therefore the JR4 catheter was placed into the brachiocephalic artery where right internal mammary angiography was performed which demonstrated patency to the chest wall. Because of this the 5 Spanish sheath was exchanged for a 6 Spanish sheath and therapeutic Was administered. A JL 3 guide catheter was placed in left main artery followed by Choice PT after support wire in the proximal LAD. The proximal LAD was heavily calcified and severely stenosed with an MLA of 3.0 mm???. Because of this a 3.5 x 38 mm [place] frontier stent was placed in the left main artery extending into the proximal LAD and deployed at 24 nissa. Intravascular ultrasound probe was advanced which demonstrated slight underexpansion of the distal portion of the stent and slight undersizing in the left main artery and proximal LAD. Because of this a 4 mm x 20 mm noncompliant balloon was deployed in the distal portion of the stent at 20 nissa and then pulled back and deployed at 20 nissa in the ostial proximal segment of the Excellent angiographic results were obtained. At the end the procedure the apparatus was removed the groin is reprepped closure change sheath was removed and hemostasis was achieved using Perclose device patient was transferred to postop boarding in stable condition ANGIOGRAPHIC RESULTS The left main artery Widely patent The left anterior descending artery Has an ostial 50% calcified stenosis with an additional 40% calcified stenosis which proved to be greater than 90% by intravascular stenosis. The remaining LAD was widely patent. Does give rise to medium sized first diagonal artery which is patent The circumflex artery Is dominant gives rise to a large ramus intermedius which is ostially occluded. There is a 50% stenosis proximal to a medium sized first obtuse marginal artery while the terminal obtuse marginal artery has a proximal 60% followed by 50% stenosis The right coronary artery Ostially occluded The ADEN ventriculogram reveals Slightly reduced at 45 to 50% The left ventricular end-diastolic pressure 10 mmHg ARIAS is patent to chest wall ALBERT is patent to the chest wall Saphenous vein graft to ramus intermedius ostially occluded Saphenous vein graft LAD ostially occluded IMPRESSION Coronary artery disease as described above Successful stenting of the ostial left main artery extending into the proximal LAD Persistent severe stenosis in the distal obtuse marginal artery which is best managed medically at this time Slightly reduced ejection fraction Normal LVEDP Loss of all bypass grafts following surgery PLAN 1. Effient and aspirin 2. LDL less than 55 to be achieved with high intensity statin 3. Avoidance of tobacco products 4. Risk factor modification 5. If patient continues to experience angina pectoris I would consider stenting the terminal obtuse marginal artery. At this point I believe it is reasonable to proceed with medical management 6. Cardiac rehabilitation Electronically signed by : Ricardo Heredia MD 12/28/2024 10:29:31
[2024-12-28 08:29] LABS: Hematocrit 42.3 % (37.0-47.0); Hemoglobin 13.1 g/dL (12.2-16.2); Immature Granulocytes % 0.1 %; Mean Corpuscular HGB Conc 31.0 g/dL (31.8-35.4); Mean Corpuscular Hemoglobin 27.1 pg (27.0-31.2); Mean Corpuscular Volume 87.4 fl (81-99); Nucleated Red Blood Cells % 0 %; Platelet Count 255 K/mm3 (142-424); Red Blood Count 4.84 M/mm3 (4.20-5.40); Red Cell Distribution Width-SD 47.2 fL; White Blood Count 7.9 K/mm3 (4.8-10.8)
[2024-12-28 08:37] LABS: Anion Gap 11.2 mEq/L (5-15); Blood Urea Nitrogen 13 mg/dl (7-17); Calcium 10.6 mg/dl (8.4-10.2); Carbon Dioxide 24 mmol/L (22.0-30.0); Chloride 109 mmol/L (98-107); Creatinine Clearance Estimated 27 mL/min (50-200); Creatinine,Serum 1.10 mg/dl (0.52-1.04); Estimated Glomerular Filt Rate 49 ml/min (>60); GFR (African American) 59 ML/MIN (>60); Glucose 95 mg/dl (74-100); Potassium 4.2 mmoL/L (3.5-5.1); Sodium 140 mmol/L (136-145)
[2024-12-28] MEDS: HEPARIN 1,000 UNITS/500ML NS (CATH LAB) 3000 UNIT IV (09:18)
[2024-12-28] MEDS: LIDOCAINE 1% 10ML MDV 10 ML IJ (09:19)
[2024-12-28] MEDS: 0.9 % SODIUM CHLORIDE 500 ML 25 ML IV (09:19)
[2024-12-28] MEDS: MIDAZOLAM HCL 1MG/ML 5ML VIAL 1 MG IV ×2 (09:41→10:08)
[2024-12-28] MEDS: FENTANYL 100MCG/2ML VIAL 50 MCG IV (09:42)
[2024-12-28] MEDS: HEPARIN 1,000 UNITS/ML 10ML VIAL (CATH LAB) 5000 UNIT IV ×2 (09:53→09:59)
[2024-12-28] MEDS: PRASUGREL 10MG TAB 60 MG PO (10:24)
--- NOTE | 2024-12-28 11:40 | SUR.PHASEII ---
pt care transferred to TRAINING AND DEVELOPMENT PROFESSIONALJHOANA Bui at this time. report given w/ no questions.
--- NOTE | 2024-12-28 12:04 | PC.NURSE ---
noted 9 beat run of vtach. notified cathlab and strip taken down for md assessment. patient has no complaints.
[2024-12-28 14:30] LABS: CATHL Activated Clotting Time 341 SEC (74-125)
== END 2024-12-28 14:38 | disposition home or self-care (01) ==
PROVIDERS: PCP Nurse Practitioner; Visit Provider Internal Medicine
PROC: 4A023N7 Measurement of Cardiac Sampling and Pressure, Left Heart, Percutaneous Approach (ICD-10-PCS; CPT 93452; principal; 2024-12-28 07:30)
DX: I25.118 Atherosclerotic heart disease of native coronary artery with other forms of angina pectoris (principal); R94.39 Abnormal result of other cardiovascular function study; R94.31 Abnormal electrocardiogram [ECG] [EKG]; E11.9 Type 2 diabetes mellitus without complications; R00.2 Palpitations; R42 Dizziness and giddiness; I10 Essential (primary) hypertension; R55 Syncope and collapse; Z95.1 Presence of aortocoronary bypass graft; Z95.5 Presence of coronary angioplasty implant and graft; Z98.84 Bariatric surgery status; Z87.891 Personal history of nicotine dependence; Z79.82 Long term (current) use of aspirin; Z79.84 Long term (current) use of oral hypoglycemic drugs; Z79.51 Long term (current) use of inhaled steroids; Z79.890 Hormone replacement therapy; Z79.899 Other long term (current) drug therapy; Z79.52 Long term (current) use of systemic steroids
CPT/HCPCS: 80048; 85025; 85347; 92928; 92978; 93459; 99152; 99153; C1725; C1760; C1769; C1874; C1894; C9600; J1200; J1644; J2003; J3010; J7040

== ENCOUNTER 2024-12-30 12:59 | Outpatient (CLI) | payer MEDICARE, MEDICAID, SELFPAY ==
--- OUTSIDE RECORDS SUMMARY | 2024-02-29 09:30 | XMS_ITS | Continuity of Care Document ---
Author Organization [facility]. If a dditional information is needed, contact Health Information Management at [phone] Address [address] [place] [address] Phone Care Team Providers Care Gaming Pit Boss Name Role Phone Unavailable Unavailable Unavailable Unavailable Unavailable Unavailable Unavailable Unavailable Unavailable Unavailable Unavailable Unavailable Unavailable Unavailable Unavailable Unavailable Unavailable Unavailable Unavailable Unavailable Unavailable Unavailable Unavailable Unavailable Unavailable Unavailable Unavailable Unavailable Unavailable Unavailable Unavailable Unavailable Unavailable Unavailable Unavailable Unavailable Unavailable Unavailable Unavailable Unavailable Unavailable Unavailable Unavailable Unavailable Unavailable Unavailable Unavailable Unavailable Unavailable Unavailable Unavailable Unavailable Unavailable Unavailable Unavailable Unavailable Unavailable Unavailable Unavailable Problems Constipation Onset:29-Feb-2024 William Monroy DO Status:Acute History of cholecystectomy Onset:29-Feb-2024 William Monroy DO Status:Acute Gastroesophageal reflux dise ase Onset:29-Feb-2024 William Monroy DO Status:Acute Geographic tongue Onset:15-Feb-2024 Alma Caldwell MD Status:Acute Gastroesophageal reflux dise ase Onset:30-Nov-2023 Rey Frey PA Status:Acute Abdominal pain Onset:30-Nov-2023 Rey HERRING Status:Acute Shoulder strain Onset:10-Apr-2023 Mary Beck Status:Acute Acute asthma Onset:09-Aug-2022 Shital HERRING-C Status:Acute Interstitial lung disease Onset:09-Aug-2022 Shital Townsend PAKrystalC Status:Acute History of coronary artery bypass grafting Onset:08-Aug-2022 Mariano Oliveira DO Status:Acute COVID-19 Onset:18-Nov-2021 Xin HERRING Status:Acute Malaise Onset:18-Nov-2021 Xin HERRING Status:Acute Fatigue Onset:18-Nov-2021 Xin Peña PA Status:Acute Gout Onset:15-May-2019 Garcia Babar C DO Hyperlipidemia Onset:15-May-2019 Garcia Babar C DO Chest pain Onset:15-May-2019 Garcia Babar C DO Status:Acute Gout Onset:15-May-2019 Garcia Babar C DO Status:Acute Transient cerebral ischemia Onset:15-May-2019 Garcia Babar C DO Status:Acute Type 2 diabetes mellitus Onset:15-May-2019 Garcia Babar C DO Status:Acute Hypertensive disorder Onset:15-May-2019 Garcai Babar C DO Status:Acute Hyperlipidemia Onset:15-May-2019 Garcia Babar C DO Status:Acute Coronary arteriosclerosis Onset:15-May-2019 Garcia Babar C DO Status:Acute Chest pain Onset:27-Jan-2019 Kobiludinaniapreeti Ebony Status:Acute Hypertensive urgency Onset:27-Jan-2019 Shital Townsend PA-C Status:Acute Dyspnea on exertion Onset:27-Jan-2019 Shital Townsend PA-C Status:Acute Low back pain Onset:01-Feb-2016 [place] Status:Acute Comments:Onset Date: [id number] Coronary arteriosclerosis Onset:10-Aug-2014 Goyo Ritchie Comments:Onset Date: Hypertensive disorder Onset:10-Aug-2014 Garcia Babar C DO Comments:Onset Date: Diabetes mellitus Onset:10-Aug-2014 Radha Thornee C DO Comments:Onset Date: Functional Status Functional finding 15-Feb-2024 Functional finding 15-Feb-2024 Functional finding 15-Feb-2024 Functional finding 30-Nov-2023 Functional finding 30-Nov-2023 Functional finding 30-Nov-2023 Functional finding 09-Aug-2022 Functional finding 09-Aug-2022 Functional finding 08-Aug-2022 Functional finding 08-Aug-2022 Functional finding 18-Nov-2021 Functional finding 18-Nov-2021 Functional finding 18-Nov-2021 Functional finding 15-May-2019 Functional finding 14-May-2019 Functional finding 14-May-2019 Functional finding 14-May-2019 Functional finding 27-Jan-2019 Functional finding 27-Jan-2019 Functional finding 27-Jan-2019 Functional finding 27-Jan-2019 Allergies and Adverse Reactions No Known Allergies(Allergy) Onset: 29-Feb-2024 No Known Allergies(Allergy) Onset: 14-May-2019 Medications 50 ML sodium chloride 9 MG/ML Injection;50 ML X1ED Quantity:1 William Monroy DO Start:76-Fpo-2165Kei:2023 UEDY923O_JBZA558Q;75 ML STAT Quantity:75 William Monroy DO Start:43-Hef-1469Zsk:2023 Comments:Provider Administration Instructions: Hazardous WasteDispose of package and any unused portionof dose in BLACK bin. Special DisposalRequired Magic Mouthwash;5 ML ORAL Every 6 Hours Start:15-Feb-2024 Comments:5 mL PO Q6 As Needed for Pain predniSONE 1 MG/ML Oral Solution;10 MG ORAL Daily Start:15-Feb-2024 Comments:10 mg PO DAILY aluminum-mag hydroxide-simethicone 200 mg-200 mg-20 mg/5 mL oral susp;10 ML ORAL Four Times a Day Start:30-Nov-2023 Comments:10 mL PO QID As Needed for Abdominal Pain Robaxin-750;1500 MG ORAL Every 8 Hours as Needed Start:09-Apr-2023 Comments:1500 mg PO Q8H PRN As Needed for Muscle Spasms Motrin;800 MG ORAL Three Times a Day Start:09-Apr-2023 Comments:800 mg PO TID As Needed for Pain Scale 4-6 Lidocaine;1 PATCH TOPICAL Daily Start:09-Apr-2023 Comments:1 patch TOPICAL DAILY carvedilol 6.25 MG Oral Tablet;6.25 MG ORAL Two Times a Day Start:10-Aug-2022 Comments:6.25 mg PO BID ZyrTEC_CETI10TA35;10 MG ORAL Daily Start:08-Aug-2022 Comments:10 mg PO DAILY empagliflozin 10 mg tablet;10 MG ORAL Daily Start:08-Aug-2022 Comments:10 mg PO DAILY atorvastatin calcium;80 MG ORAL At Bedtime Start:08-Aug-2022 Comments:80 mg PO BEDTIME ipratropium bromide 0.2 MG/ML Inhalation Solution;0.3 MG Inhalation Q6H Start:08-Aug-2022 Comments:0.3 mg INHALATION Q6H beclomethasone dipropionate 40 mcg/actuation aerosol inhaler;40 MCG Inhalation Daily Start:08-Aug-2022 Comments:40 mcg INHALATION DAILY acetaminophen 325 MG / HYDROcodone bitartrate 7.5 MG Oral Tablet;1 TAB ORAL Q6H Start:14-May-2019 Status:Aborted Comments:1 tab PO Q6H As Needed for Pain lisinopril 10 mg tablet;20 MG ORAL Daily Start:14-May-2019 Comments:20 mg PO DAILY predniSONE;40 MG ORAL Daily Start:14-May-2019 Status:Aborted Comments:40 mg PO DAILY Cozaar;50 MG ORAL Daily Start:28-Jan-2019 Status:Aborted Comments:50 mg PO DAILY Acorn Aspirin;81 MG ORAL Daily Start:28-Jan-2019 Status:Aborted Comments:81 mg PO DAILY carvedilol 3.125 MG Oral Tablet;3.125 MG ORAL Two Times a Day Start:28-Jan-2019 Status:Aborted Comments:3.125 mg PO BID atorvastatin calcium;40 MG ORAL At Bedtime Start:28-Jan-2019 Status:Aborted Comments:40 mg PO BEDTIME Acorn Aspirin;81 MG ORAL Daily Start:11-Aug-2014 Status:Aborted Comments:81 mg PO DAILY Aspir 98_UAQO-912-YAG;81 MG ORAL Daily Start:07-Mar-2014 Status:Aborted Comments:81 MG PO DAILY Novnvd_MEGY-51-FEQ;50 - 100 ORAL Every 6 Hours as Needed Start:01-Dec-2012 Status:Aborted Comments:50 - 100 MG PO Q6H PRN As Needed for pain Mobic_MELO7.4T61-SMZ;7.5 MG ORAL Two Times a Day As Needed Start:01-Dec-2012 Status:Aborted Comments:7.5 MG PO BID PRN As Needed for pain, swelling Procedures EKGResult:[place], [place] [address]Phone: Zgnxbtccdagoyfqij ReportPatient Name: SANDY LAGUERRE: 1955 Age: 68 Sex: FAcct: [id number] MR#: [id number] Status: DEP ER [facility] Porfirio Thomas of Admission:02/29/24Test Reason : Blood Pressure : / mmHG Vent. Rate : 075 BPM Atrial Rate : 075 BPM P-R Int : 198 ms QRS Dur : 082 ms QT Int : 382 ms P-R-T Axes : 057 015 052 degrees QTc Int : 426 ms Normal sinus rhythm Cannot rule out Anterior infarct (cited on or before 08-AUG-2022) Abnormal ECG When compared with ECG of 29-FEB-2024 09:19, No significant change was found Confirmed by Glenys Barker ([id number]) on 03/09/2024 2:39:28 PM Referred By: Confirmed By:Glenys Barker<Electronically signed by Glenys Barker MD in OV>03/09/24 1439Dictated By: Glenys Barker MD Dictated Date/Time:02/29/24 1227Transcribed By: Glenys Barker MD TranscribedDate/Time: 02/29/24 1227Technologist: Report ID: [id number] To:Patient Name: SANDY LAGUERRE Acct: [id number] Unit: [id number] Page 1 Date:29-Feb-2024 Status:Completed Abdomen and Pelvis w ConResult:[place] [address] Diagnostic Imaging ReportPatient Name: SANDY LAGUERRE Acct: [id number]: 1955 Age: 68 Sex: F MR#: [id number] Date/Time: 02/29/24 1052 Admit Date/Time:Patient Status: REG ER Ordering Physician: Teresita Diamondtiejohn [facility] Attending Physician:Accession Number(s): [id number](s): Computed Tomography CT Abdomen And Pelvis w conCPT Code(s): 42285MXJERWSJ INDICATION: abd pain TECHNIQUE: Multiple axial CT images were obtained from lung bases through pubic symphysis followingadministration of IV contrast, Isovue 370, 75 mL. Delayed images of abdomen and kidneys alsoobtained. Reformatted images in the coronal and sagittal planes were generated from the axial dataset to facilitate diagnostic accuracy. Total DLP (Dose-Length Product): 919.55 mGy*cm. Please note: The reported value represents thetotal of one or more individual components during the CT acquisition on this date and at this time,and as such, the same value may appear in more than one CT report depending on theinterpreting/reporting physicians. COMPARISON: None. FINDINGS: Lower Chest: Chronic changes seen within the lung bases bilaterally.. Cardiac chambers are mildlyenlarged. Solid Abdominal Organs: Liver is homogeneous in appearance. The gallbladder is been surgicallyremoved. Mild intrahepatic and extra hepatic biliary ductal dilatation which can be seen in apostcholecystectomy patient. The pancreas is homogeneous. The spleen is unremarkable. Both adrenalglands are within normal limits. Symmetric enhancement of the renal parenchyma. No stones ordistention seen of the renal collecting system. GI Tract/Mesentery/Peritoneum: Small hiatal hernia. The stomach reveals a surgical staple line.Small bowel is within normal limits. Increased stool burden seen diffusely throughout the colon.Findings to suggest clinical presentation of constipation. No signs of obvious obstruction orobstructing lesion. No suspicious mesenteric or peritoneal abnormality.. Pelvic Viscera: The bladder is mildly distended. No gross mass or lesion. The uterus isunremarkable and slightly lobulated to suggest fibroids. Lymph Nodes/Vasculature: No abdominal or retroperitoneal lymphadenopathy. No pelvic adenopathy.Minimal atherosclerotic disease within the abdominal aorta and iliac vessels. Free Fluid:NonePatient Name: SANDY LAGUERRE Acct: [id number] Unit: [id number] Page 1 Musculoskeletal and Body Wall:Multilevel degenerative changes seen within the spine. There is noventral abdominal wall mass or defect. No acute or aggressive osseous abnormality. CT/CT Abdomen And Pelvis w conIMPRESSION:Moderate stool burden seen diffusely throughout the colon to suggest clinical presentation ofconstipation with no signs of obvious obstruction or obstructing lesion. There is no CT evidence ofacute intra-abdominal or pelvic abnormality.CRITICAL RESULT:No.COMMUNICATION:Per this written report.Drafted by Patrica Hart MD on 02/29/2024 11:30 AMFinal report signed by Patrica Hart MD on 02/29/2024 11:57 AM<Electronically signed by Patrica Hart MD in OV>02/29/24 1157 Thank you for choosing [facility] Dictated By: NAVARRO Bushictated Date/Time: 02/29/24 1157Transcribed By: Patrica Hart MDTranscribed Date/Time: 02/29/24 1157Technologist: Foreign Delarosa To: Ethel Laguerre NP Report ID: [id number] -End of Report-Patient Name: SANDY LAGUERRE Acct: [id number] Unit: [id number] Page 2 Date:29-Feb-2024 Status:Completed Chest 1 ViewResult:[place] [address] [place] [address] Diagnostic Imaging ReportPatient Name: SANDY LAGUERRE Acct: [id number]: 1955 Age: 68 Sex: F MR#: [id number] Date/Time: 02/29/2445 Admit Date/Time:Patient Status: PRE ER Ordering Physician: Teresita Diamondtiejohn [facility] Attending Physician:Accession Number(s): [id number](s): Radiology XR Chest 1 ViewCPT Code(s): 73571EALMAACU INDICATION: chest pain TECHNIQUE: XR Chest 1 View COMPARISON: None. FINDINGS: Portable chest reveals patient is status post median sternotomy. The heart is borderline enlarged.Underlying chronic changes seen throughout the lung levy bilaterally. Mild increased interstitialmarkings seen throughout the lung field suggesting mild interstitial edema. Trace bilateral pleuraleffusions cannot be excluded. RAD/XR Chest 1 ViewIMPRESSION:Chronic changes seen at the lung levy with findings to suggest mild superimposed interstitialedema with trace bilateral pleural effusions.CRITICAL RESULT:No.COMMUNICATION:Per this written report.Drafted by Patrica Hart MD on 02/29/2024 10:08 AMFinal report signed by Patrica Hart MD on 02/29/2024 10:09 AM<Electronically signed by Patrica Hart MD in OV>02/29/24 1009 Thank you for choosing [facility] Dictated By: Patrica Hart, MDPatient Name: SANDY LAGUERRE Acct: [id number] Unit: [id number] Page 1Dictated Date/Time: 02/29/24 1009Transcribed By: Patrica Hart MDTranscribed Date/Time: 02/29/24 1009Technologist: Brandie Agudelo To: Ethel Laguerre NP Report ID: [id number] -End of Report-Patient Name: SANDY LAGUERRE Acct: [id number] Unit: [id number] Page 2 Date:29-Feb-2024 Status:Completed EKGResult:[place], [place] [address]Phone: Vsobnkneafigbjief ReportPatient Name: SANDY LAGUERREDOB: 1955 Age: 68 Sex: FAcct: [id number] MR#: [id number] Status: DEP ER [facility]: Porfirio Thomas of Admission:02/29/24Test Reason : Blood Pressure : / mmHG Vent. Rate : 091 BPM Atrial Rate : 091 BPM P-R Int : 160 ms QRS Dur : 076 ms QT Int : 344 ms P-R-T Axes : 062 005 095 degrees QTc Int : 423 ms Normal sinus rhythm Cannot rule out Anterior infarct (cited on or before 08-AUG-2022) Abnormal ECG When compared with ECG of 30-NOV-2023 11:54, No significant change was found Confirmed by Glenys Barker ([id number]) on 03/09/2024 2:39:21 PM Referred By: Confirmed By:Glenys Barker<Electronically signed by Glensy Barker MD in OV>03/09/24 1439Dictated By: Glenys Barker MD Dictated Date/Time:02/29/24 09Transcribed By: Glenys Barker MD TranscribedDate/Time: 02/29/24 09Technologist: Report ID: [id number] To:Patient Name: SANDY LGAUERRE Acct: [id number] Unit: [id number] Page 1 Date:29-Feb-2024 Status:Completed Social History Smoking Status Ex-smoker Recorded: 14-May-2019 Ex-smoker Recorded: 27-Jan-2019 Results CBC w Automated Differential Ordered On:29-Feb-2024 10:13 Basophils Absolute-Auto0.01K/uL(Normal ) Range:0K/uL-0.04K/uL Basophils Percent-Auto0.1%(Normal) Range:0%-1% Eosinophils Absolute-Auto0.04K/uL(Normal ) Range:0K/uL-0.3K/uL Eosinophils Percent-Auto0.3%(Normal) Range:0%-6% Granulocytes Absolute-Auto10.49K/uL(High) Range:1.4K/uL-7.7K/uL Granulocytes Percent-Auto90.3%(High) Range:43%-83.7% Tiyeodukeq05.1%(Low) Range:38.9% -44.7% Yftutinizi99.1g/dL(Low) Range:12 .4g/dL-16.2g/dL Immature Granulocyte s absolute0.04K/uL(Normal) Range:0K/uL-0.08K/uL Immature Granulocyte s percent0.3%(Normal) Range:0%-0.5% Lymphocytes Absolute-Auto0.77K/uL(Low) Range:0.8K/uL-2.9K/uL Lymphocytes Percent-Auto6.6%(Low) Range:9.7%-44.3% Mean Corpuscular Cvplxihczf20.4pg(Low) Range:27.5pg-33.4pg Mean Corpuscular Hgb Fgsnnzt08.1g/dL(Low) Range:32g/dL-36g/dL Mean Corpuscular Nalyzl17.0fL(Low) Range:81fL-96fL Monocytes Absolute-Auto0.28K/uL(Normal ) Range:0.2K/uL-0.8K/uL Monocytes Percent-Auto2.4%(Normal) Range:1.8%-12.7% Mean Platelet Fyqddv40.4fL(Normal) Range:8.5fL-12.1fL Nucleated RBC relati ve auto0.0%(Normal) Range:0%-0.2% Platelet Azllx948V/uL(Normal) Range:153K/uL-361K/uL Red Blood Cell Count4.95{M/uL}(Normal) Range:4.1{M/uL}-5.3{M/uL} RDW Coefficient of Dnsasykxk74.8%(High) Range:12%-14.8% White Blood Count11.6K/uL(High) Range:4.8K/uL-10.8K/uL Nucleated RBC absolu te auto0.00K/uL(Normal) Range:0K/uL-0.01K/uL Comprehensive Metabolic Panel Ordered On:29-Feb-2024 10:18 BUN/Creatinine Ratio14.5 Blood Urea Fhiilrsx79ri/dL(Normal) Range:7mg/dL-18mg/dL Cwnrlxzb313kstg/L(High) Range:98 mmol/L-107mmol/L Carbon Mnmviqq60wodt/L(Low) Rang e:21mmol/L-32mmol/L Creatinine1.10mg/dL(High) Range: 0.55mg/dL-1.02mg/dL Anion Tio23vrym/L(Normal) Range: 5mmol/L-14mmol/L Glom Filtration Rate CKD-EPI 254mL/min Comments:EFFECTIVE JAN 2022, THE LABORATORY HAS CONVERTED TO FUA5728 CKD EPI CREATININE EQUATION FOR ADULTS THAT DOES NOTCONTAIN A RACE FACTOR TO CALCULATE AND REPORT THE eGFRRESULTS. Potassium4.7mmol/L(Normal) Range :3.5mmol/L-5.1mmol/L Owcvar763friw/L(High) Range:136m mol/L-142mmol/L 29-Feb-2024 10:33 Albumin/Globulin Ratio1.1 Albumin3.6g/dL(Normal) Range:3.4 g/dL-5g/dL Alkaline Phosphatase Total73[IU]/L(Normal) Range:46[IU]/L-116[IU]/L Alanine Aminotrans ALT/SGPT27[IU]/L(Normal) Range:14[IU]/L-59[IU]/L Aspartate Aminotrans AST/SGOT21[IU]/L(Normal) Range:15[IU]/L-37[IU]/L Bilirubin Total0.7mg/dL(Normal) Range:0.2mg/dL-1mg/dL Calcium8.8mg/dL(Normal) Range:8. 5mg/dL-10.1mg/dL Globulin3.4g/dL Xguwqfa820mb/dL(High) Range:74mg /dL-106mg/dL Total Protein7.0g/dL(Normal) Ran ge:6.4g/dL-8.2g/dL Troponin I High Sensitivity Ordered On:29-Feb-20 24 29-Feb-2024 10:33 Troponin I High Jpcakdpjrox5ex/L(Normal) Range:0ng/L-51ng/L Comments:If the repeat Troponin is rising and a delta of 20% ispresent, it may be clinically significant. Provider shouldassess if further treatment is required.The reportedreference range is based on the gender specific 99thpercentile cut-off for the Siemens Dimension EXL HighSensitivity Troponin I method.Biotin concentrations greater than 300 ng/mL may have falsenegative results. Therefore, this method should not be usedfor these patients and patients with renal impairment (eGFR<60). NT-pro B Natriuretic Peptide Ordered On:29-Feb-2024 10:33 NT-pro B Natriuretic Ghqjrri970vq/mL(High) Range:0pg/mL-125pg/mL Lipase Ordered On:29-Feb-2024 10:33 Buzuks44N/L(Normal) Range:16U/ L-77U/L Comments:REAGENT CHANGE: PLEASE NOTE NEW REFERENCE RANGE. Vital Signs 29-Feb-2024 13:20 O2 SAT96% Pulse72 29-Feb-2024 13:10 O2 SAT97% Pulse78 29-Feb-2024 13:00 O2 SAT99% Pulse78 29-Feb-2024 12:50 O2 SAT97% Pulse77 29-Feb-2024 12:40 O2 SAT96% Pulse75 29-Feb-2024 12:32 O2 SAT97% 29-Feb-2024 12:30 O2 SAT95% Pulse75 29-Feb-2024 12:20 O2 SAT98% Pulse64 29-Feb-2024 12:10 O2 SAT96% Pulse50 29-Feb-2024 12:00 O2 SAT96% Pulse53 29-Feb-2024 11:50 O2 SAT97% Pulse67 29-Feb-2024 11:40 O2 SAT97% Pulse63 29-Feb-2024 11:31 O2 SAT93% Pulse82 29-Feb-2024 11:00 O2 SAT99% Pulse76 29-Feb-2024 10:50 O2 SAT98% Pulse77 29-Feb-2024 10:40 O2 SAT97% Pulse74 29-Feb-2024 10:30 O2 SAT95% Pulse74 29-Feb-2024 10:20 O2 SAT96% Pulse80 29-Feb-2024 10:10 O2 SAT95% Pulse77 29-Feb-2024 10:00 O2 SAT96% Pulse77 29-Feb-2024 09:50 O2 SAT96% Pulse81 29-Feb-2024 09:44 O2 SAT97% Pulse84 29-Feb-2024 09:25 Temp36.4c O2 SAT98% Pulse84 Respiratory Rate20 BP Fpbfnqvr652zn[Hg] BP Wszfhbztm37oh[Hg] 29-Feb-2024 09:25 BMI43.6kg/m2 Height4.1144026[ft_us] Pihbnc514.8045057qs 15-Feb-2024 09:37 BMI30.6kg/m2 Temp36.9c O2 SAT99% Pulse75 Respiratory Rate12 BP Djzmtxsp736wb[Hg] BP Wmodhipbj18ll[Hg] Height5.8161454[ft_us] Kgbcln064.5025lb Encounters pre-admission Encounter Reason:Z12.31 DX: MAMMO SCREENING 30-Mar-2024 11:30 [facility] Emergency Encounter Reason:CHEST/ABD PAIN Encounter Diagnosis:CHEST PAIN, UNSPECIFIED,ESSENTIAL (PRIMARY) HYPERTENSION,TYPE 2 DIABETES MELLITUS WITHOUT COMPLICATIONS,ATHSCL HEART DISEASE OF [place] CORONARY ARTERY W/O ANG PCTRS,PRESENCE OF AORTOCORONARY BYPASS GRAFT,CONSTIPATION, UNSPECIFIED 29-Feb-2024 09:31Ui17-Dpf-4508 13:30 [facility] Discharge Disposition:Discharged to home or self care (routine discharge) William Monroy XR-85-Ecj29-Feb-2024 [place], [place] [address]Phone: ed PHYSICIAN RECORDPatient Name: SANDY LAGUERREB: 1955 Age: 68 Sex: FAcct: [id number] MR#: [id number]: Author: Porfirio Thomas DOPatient Status: REG ER [facility]: 02/29/24Report Date/Time: 02/29/24 1106 Report Status: SignedReport#: [id number]-Uun Pain F 40 and Over- Free Text HPI NotesThis 68-year-old female patient presented to the emergency department complaining of some intermittent chest and upper abdominal pain since Thursday, today being the following Thursday. She statedthe discomfort would usually come on only at night. He stated she would take aspirin or nitroglycerin and that would seem to help. This morning she had some diarrhea and abdominal cramping. Patientdid have a history of coronary disease with previous 2 vessel CABG. Patient reported no other symptoms. She rated her discomfort as mild. She reported no other provocative or palliative factors.- Chief ComplaintChief Complaint: Abdominal pain- Timing of SymptomsSudden in Onset?: No- GeneralTime Seen by Provider: 02/29/24 09:12Review of Systems- Free Text ROS NotesConstitutional: negative for - fever, unexplained weight changes, or malaiseOphthalmic: negative for - decreased vision, discharge, eye pain or loss of visionENT: negative for - hearing changes, pain, epistaxis, runny nose or nasal congestionRespiratory: negative for - cough, shortness of breath, or wheezingCardiovascular: negative for - palpitations, or edemaGastrointestinal: negative for - nausea, vomitingGenitourinary: negative for - dysuria, frequency, urgency, or hematuriaMusculoskeletal: negative for - myalgia, muscle weakness, joint pain or back painNeurological: negative for - confusion, dizziness, headache, or LOCDermatological: negative for - rash or other eruptionsPast Medical History - Adult- Nursing NotesCalculated suicide risk level: No RiskPatient Name: SANDY LAGUERRE Acct: [id number] Unit: [id number] Page 1- Past Medical HistoryMedical History: History, Medical (Last Updated 02/29/24 @ 11:10 by Porfirio Thomas DO)CAD (coronary artery disease) (Medical) I25.10GERD (gastroesophageal reflux disease) (Medical) K21.9Gout (Medical) M10.9HLD (hyperlipidemia) (Medical) E78.5HTN (hypertension) (Medical) W13P4DE (type 2 diabetes mellitus) (Medical) E11.9TIA (transient ischemic attack) (Medical) G45.9- Past Surgical HistorySurgical History: History, Surgical (Last Updated 02/29/24 @ 13:06 by Porfirio Thomas DO)Hx of cholecystectomy (Surgical) Z90.49S/P CABG x 2 (Surgical) Z95.1- Family HistoryFamily History: Family History by Member (Last Reviewed 08/08/22 @ 15:05 by Tee Quintana DO)MOTHER CHF (congestive heart failure)FATHER CAD (coronary artery disease)- Nursing NotesStated Complaint: CHEST/ABD PAINAllergies/Adverse Reactions: AllergiesAllergy/AdvReac Type Severity Reaction Status Date / TimeNo Known Allergies Allergy Verified 02/29/24 09:31Physical Exam- Free Text PE NotesConstitutional: Well-developed, well-nourished, in no apparent distress, nontoxic appearanceHead: AtraumaticEyes: Pupils equal and reactive to light, extraocular muscles intact, conjunctiva normalENT: Tympanic membranes normal, no rhinorrhea, normal pharynx with no erythema or exudateNeck: Supple, nontender, no cervical lymphadenopathy, no JVDRespiratory: No respiratory distress, normal breath sounds, breathing nonlaboredCardiovascular: Normal rate, good peripheral perfusion, no murmurs or rubsChest:Patient Name: SANDY LAGUERRE Acct: [id number] Unit: [id number] Page 2Gastrointestinal: Normal bowel sounds, nondistended, there is mild upper abdominal tenderness topalpation without peritoneal signs, no palpable organomegalyGenitourinary:Musculoskeletal: Extremities nontender, normal range of motion, no edema, normal distal pulsesBack: Normal tone, no tendernessIntegument: Well hydrated, no lesions, no significant rashNeurologic: Alert, appropriate, oriented to person, place, and time. No focal deficitsPsychiatric:- Initial Vital SignsVital Signs - First Documented: Vital Signs - First DocumentedTemperature 97.5 F 02/29/24 09:25Temperature source Oral 02/29/24 09:25Pulse 84 02/29/24 09:25Respiratory rate 20 02/29/24 09:25Respiratory source Observed 02/29/24 09:25Vital signs position Sitting 02/29/24 09:25Blood pressure 116/59 L 02/29/24 09:25Blood pressure location Right arm 02/29/24 09:25Bedside pulse oximetry/SpO2 98 02/29/24 09:25Patient on Room air 02/29/24 09:25Weight 88.2 kg 02/29/24 09:25Weight source Stated/Reported 02/29/24 09:25Body surface area 1.93 02/29/24 09:25Body mass index 43.6 02/29/24 09:25Height 1.42 m 02/29/24 09:25Height source Stated/Reported 02/29/24 09:25Interpretation Diagnostics- Lab Results InterpretationResult Diagrams: 02/29/24 09:46 02/29/24 09:46Patient Name: SANDY LAGUERRE Acct: [id number] Unit: [id number] Page 3Results: Laboratory results within the last 24 hrs 02/29/24 Range/Units 09:46WBC 11.6 H (4.8-10.8) K/uLRBC 4.95 (4.10-5.30) M/uLHgb 11.1 L (12.4-16.2) g/dLHct 38.1 L (38.9-44.7) %MCV 77.0 L (81-96) fLMCH 22.4 L (27.5- 33.4) pgMCHC 29.1 L (32-36) g/dLRDW Coeff of Dhruv 18.8 H (12.0-14.8) %Plt Count 309 (153-361) K/uLMPV 11.4 (8.5-12.1) fLGran % 90.3 H (43.0-83.7) %Immature Gran % (Auto) 0.3 (0.0-0.5) %Lymph % (Auto) 6.6 L (9.7-44.3) %[place] % (Auto) 2.4 (1.8-12.7) %Eos % (Auto) 0.3 (0.0-6.0) %Baso % (Auto) 0.1 (0.0-1.0) %Nucleat RBC Rel Count 0.0 (0.0-0.2) %Gran # 10.49 H (1.40-7.70) K/uLLymph # (Auto) 0.77 L (0.80-2.90) K/uLMono # (Auto) 0.28 (0.20-0.80) K/uLEos # (Auto) 0.04 (0.00-0.30) K/uLBaso # (Auto) 0.01 (0.00-0.04) K/uLImmature Gran # (Auto) 0.04 (0.00-0.08) K/uLAbsolute Nucleated RBC 0.00 (0.00-0.01) K/uLPatient Name: SANDY LAGUERRE Acct: [id number] Unit: [id number] Page 4Sodium 146 H (136-142) mmol/LPotassium 4.7 (3.5-5.1) mmol/LChloride 113 H (98-107) mmol/LCarbon Dioxide 20 L (21-32) mmol/LAnion Gap 13 (5-14) mMol/LBUN 16 (7-18) mg/dLCreatinine 1.10 H (0.55-1.02) mg/dLEst GFR (CKD-EPI 2020) 54 mL/minBUN/Creatinine Ratio 14.5Glucose 205 H (74-106) mg/dLCalcium 8.8 (8.5- 10.1) mg/dLTotal Bilirubin 0.7 (0.2-1.0) mg/dLAST 21 (15-37) IU/LALT 27 (14-59) IU/LTotal Alk Phosphatase 73 (46-116) IU/LTroponin I High Sens 7 (0-51) ng/LNT-Pro-B Natriuret Pep 129 H (0-125) pg/mLSerum Total Protein 7.0 (6.4-8.2) g/dLAlbumin 3.6 (3.4- 5.0) g/dLGlobulin 3.4 g/dLAlbumin/Globulin Ratio 1.1Lipase 45 (16-77) U/LRadiology Impressions within the last 24 hrsChest X-Ray 02/29/24 09:45IMPRESSION:Chronic changes seen at the lung levy with findings to suggest mild superimposed interstitialedema with trace bilateral pleural effusions.CRITICAL RESULT:No.COMMUNICATION:Per this written report.Patient Name: SANDY LAGUERRE Acct: [id number] Unit: [id number] Page 5Drafted by Patrica Hart MD on 02/29/2024 10:08 AMFinal report signed by Patrica Hart MD on 02/29/2024 10:09 AM- _Labs Imaging Statement NoteLaboratory radiographic studies reviewed and considered in the medical decision-making. Laboratory results within the last 24 hrs 02/29/24 Range/Units 09:46WBC 11.6 H (4.8-10.8) K/uLRBC 4.95 (4.10-5.30) M/uLHgb 11.1 L (12.4-16.2) g/dLHct 38.1 L (38.9-44.7) %MCV 77.0 L (81-96) fLMCH 22.4 L (27.5- 33.4) pgMCHC 29.1 L (32-36) g/dLRDW Coeff of Dhruv 18.8 H (12.0-14.8) %Plt Count 309 (153-361) K/uLMPV 11.4 (8.5-12.1) fLGran % 90.3 H (43.0-83.7) %Immature Gran % (Auto) 0.3 (0.0-0.5) %Lymph % (Auto) 6.6 L (9.7-44.3) %[place] % (Auto) 2.4 (1.8-12.7) %Eos % (Auto) 0.3 (0.0-6.0) %Baso % (Auto) 0.1 (0.0-1.0) %Nucleat RBC Rel Count 0.0 (0.0-0.2) %Gran # 10.49 H (1.40-7.70) K/uLLymph # (Auto) 0.77 L (0.80-2.90) K/uLPatient Name: SANDY LAGUERRE Acct: [id number] Unit: [id number] Page 6Mono # (Auto) 0.28 (0.20-0.80) K/uLEos # (Auto) 0.04 (0.00-0.30) K/uLBaso # (Auto) 0.01 (0.00-0.04) K/uLImmature Gran # (Auto) 0.04 (0.00-0.08) K/uLAbsolute Nucleated RBC 0.00 (0.00-0.01) K/uLSodium 146 H (136-142) mmol/LPotassium 4.7 (3.5-5.1) mmol/LChloride 113 H (98-107) mmol/LCarbon Dioxide 20 L (21-32) mmol/LAnion Gap 13 (5-14) mMol/LBUN 16 (7-18) mg/dLCreatinine 1.10 H (0.55-1.02) mg/dLEst GFR (CKD- EPI 2020) 54 mL/minBUN/Creatinine Ratio 14.5Glucose 205 H (74-106) mg/dLCalcium 8.8 (8.5-10.1) mg/dLTotal Bilirubin 0.7 (0.2-1.0) mg/dLAST 21 (15-37) IU/LALT 27 (14-59) IU/LTotal Alk Phosphatase 73 (46-116) IU/LTroponin I High Sens 7 (0-51) ng/LNT-Pro-B Natriuret Pep 129 H (0-125) pg/mLSerum Total Protein 7.0 (6.4-8.2) g/dLAlbumin 3.6 (3.4-5.0) g/dLGlobulin 3.4 g/dLAlbumin/Globulin Ratio 1.1Lipase 45 (16-77) U/LRadiology Impressions within the last 24 hrsPatient Name: SANDY LAGUERRE Acct: [id number] Unit: [id number] Page 7Chest X-Ray 02/29/24 09:45IMPRESSION:Chronic changes seen at the lung levy with findings to suggest mild superimposed interstitialedema with trace bilateral pleural effusions.CRITICAL RESULT:No.COMMUNICATION:Per this written report.Drafted by Patrica Hart MD on 02/29/2024 10:08 AMFinal report signed by Patrica Hart MD on 02/29/2024 10:09 AMAbdomen/Pelvis CT 02/29/24 10:52IMPRESSION:Moderate stool burden seen diffusely throughout the colon to suggest clinical presentation ofconstipation with no signs of obvious obstruction or obstructing lesion. There is no CT evidence ofacute intra-abdominal or pelvic abnormality.CRITICAL RESULT:No.COMMUNICATION:Per this written report.Drafted by Patrica Hart MD on 02/29/2024 11:30 AMFinal report signed by Patrica Hart MD on 02/29/2024 11:57 AM- ECG Interpretation 1st interpretationText/Dict Note: Reviewed by me at 9:19 a.m., normal sinus rhythm at 91 beats per minute, CT [id number], QRS 76, QTC 423, no acute ST/T changesRe- Evaluation MDM- Free Text MDM NotesText/Dict MDM Notes:This 68-year-old female patient presented to the emergency department complaining of someintermittent chest and upper abdominal pain since Thursday, today being the following Thursday. Shestated the discomfort would usually come on only at night. He stated she would take aspirin ornitroglycerin and that would seem to help. This morning she had some diarrhea and abdominalcramping. Patient did have a history of coronary disease with previous 2 vessel CABG. Patientreported no other symptoms. Vital signs were normal. Exam was significant for mild upper abdominaltenderness to palpation without peritoneal signs. Remainder of the exam was unremarkable. ECG wasreviewed by me at 9:19 a.m.. There was normal sinus rhythm at 91 beats per minute, CT interval 160,QRS 76, QTC 423, no acute ST/T changes. CBC showed a white blood count 10091. Comprehensivemetabolic panel was unremarkable except for a sodium of 146 blood sugar 205. Lipase was normal at45. ProBNP was slightly elevated at 129. Troponin was normal at 7. Chest x-ray showed mildinterstitial edema. CT scan of the abdomen and pelvis with IV contrast showed moderate stool butotherwise unremarkable. I felt it was reasonable to discharge the patient I did recommend she pickup MiraLax start using some of that for her constipation.Patient Name: SANDY LAGUERRE Acct: [id number] Unit: [id number] Page 8I have spoken with the patient and/or caregivers. I have explained the patient's condition,diagnoses and treatment plan based on the information available to me at this time. I have answeredthe patient's and/or caregiver's questions and addressed any concerns. The patient and/or caregivershave as good an understanding of the patient's diagnosis, condition and treatment plan as can beexpected at this point. The vital signs have been stable. The patient's condition is stable andappropriate for discharge from the emergency department.The patient will pursue further outpatient evaluation with the primary care physician or otherdesignated or consulting physician as outlined in the discharge instructions. The patient and/orcaregivers are agreeable to this plan of care and follow-up instructions have been explained indetail.The patient and/or caregivers have received these instructions in written format and have expressedan understanding of the discharge instructions. The patient and/or caregivers are aware that anysignificant change in condition or worsening of symptoms should prompt an immediate return to thisor the closest emergency department or a call to 911.- ED CourseTime: 13:05Patient Course: StableOrders-All:02/29/24 09:45XR Chest 1 View [RAD] Stat02/29/24 09:46CBC w Automated Differential StatComprehensive Metabolic Panel StatLipase StatNT-pro B Natriuretic Peptide StatTroponin I High Sensitivity Stat02/29/24 10:52Prep - CT ABD PELVIS W/CONTRAS Once NurWaive Creatinine for CT Order ONCECT Abdomen And Pelvis w con [CT] Stat02/29/24 11:45EKG Status Nurse ONCEEKG Routine- Differential Diagnosis)( Differential Diagnosis: Positive Acute abdominal pain, Positive Acute coronary syndrome, Positive Bowel obstruction, Positive Esophagitis, Positive Gastritis, Positive Ischemic bowel, Positive PancreatitisPatient Discharge Departure- ConditionCondition: StableTime of Impression: 13:06Patient Name: SANDY LAGUERRE Acct: [id number] Unit: [id number] Page 9- Disposition Decision - Discharge)( Disposition time: 13:06)( Disposition date: 02/29/24- Discharge/Care PlanCounseled Regarding: Lab results, Imaging studies, Need for follow-up, When to return to EDClinical Impression: ConstipationDischarge Plan- Discharge PlanReason For Visit: CHEST/ABD PAINCondition: Good- InstructionsInstructions: ED Constipation (Adult)Prescriptions:No Action alum-mag hydroxide-simeth [Maalox Advanced] 200-200-20 mg/5 mL Suspension 10 ml PO QID PRN (Reason: Abdominal Pain) Qty: 100 RF: 0 administer between meals and at bedtime Ordered By: Shante Le Last Taken: Unknown atorvastatin 80 mg tablet 80 mg PO BEDTIME Last Taken: Unknown beclomethasone dipropionate 40 mcg/actuation Aerosol 40 mcg INHALATION DAILY Last Taken: Unknown carvedilol 6.25 mg Tablet 6.25 mg PO BID Qty: 60 RF: 0 Ordered By: Yudy Reyes Last Taken: Unknown cetirizine 10 mg Tablet 10 mg PO DAILY Last Taken: Unknown ibuprofen 800 mg tablet 800 mg PO TID PRN (Reason: Pain Scale 4-6) Qty: 15 RF: 0 Ordered By: Ebony Hernandez Last Taken: Unknown ipratropium bromide 0.02 % Solution 0.3 mg INHALATION Q6H Last Taken: Unknown Jardiance 10 mg tablet 10 mg PO DAILY Last Taken: Unknown lidocaine [Lidoderm] 5 % Adhesive Patch,Medicated 1 patch TOPICAL DAILY Qty: 30 RF: 0 leave on most painful area for up to 12 hrs Ordered By: Ebony Hernandez Last Taken: Unknown lisinopril 10 mg tablet 20 mg PO DAILY Last Taken: Unknown Magic Mouthwash 120 mL SuspensionPatient Name: SANDY LAGUERRE Acct: [id number] Unit: [id number] Page 10 5 ml PO Q6 PRN (Reason: Pain) Qty: 120 RF: 0 Maalox 200 mg- 200 mg-20 mg/5 mL oral suspension 40 mL; Diphedryl 12.5 mg/5 mL oral liquid 40mL; Lidocaine Viscous 2 % mucosal solution 40 mL; Per 120 mL Ordered By: Javi Marquez Last Taken: Unknown methocarbamol 750 mg tablet 1,500 mg PO Q8H PRN PRN (Reason: Muscle Spasms) Qty: 30 RF: 0 Ordered By: Ebony Hernandez Last Taken: Unknown prednisone 5 mg/5 mL Solution 10 mg PO DAILY Qty: 60 RF: 0 Please take 40 mg for 4 days, 30 mg for 3 days, 20 mg for 2 days and 10 mg for 1 day. Ordered By: Javi Marquez Last Taken: UnknownAdditional Instructions:Follow-up with her primary care provider if no better in the next 2 days and return immediately fornew or worsening symptoms.<Electronically signed by Porfirio Thomas DO> 02/29/24 1308Patient Name: SANDY LAGUERRE Acct: [id number] Unit: [id number] Page 11 Emergency Encounter Reason:BLISTERS IN MOUTH Encounter Diagnosis:ATHSCL HEART DISEASE OF [place] CORONARY ARTERY W/O ANG PCTRS,PRESENCE OF AORTOCORONARY BYPASS GRAFT,GEOGRAPHIC TONGUE 15-Feb-2024 09:[id number] 09:55 [place] Discharge Disposition:Discharged to home or self care (routine discharge) Alma Caldwell MD-15-Feb-2024 [place], [place] [address]Phone: [place] PHYSICIAN RECORDPatient Name: SANDY LAGUERREDOB: 1955 Age: 68 Sex: FAcct: [id number] MR#: [id number]: Author: Javi Marquez MDPatient Status: [facility]: 02/15/24Report Date/Time: 02/15/24943 Report Status: SignedReport#: [id number] Pain F 40 and Over- Free Text HPI [id number] female presenting for evaluation of mouth pain. Reports ongoing ulcers for 1 year. Hasseen primary care physician and has been on Magic mouthwash as well as fluconazole withoutimprovement. Reports improvement with steroids. Has not taken any pain medications today prior toarrival. Reports painful swallowing. Denies any fevers chills or weight loss. Denies any historyof immune compromise. Denies any other somatic complaints.- Chief ComplaintChief Complaint: Other (Oral ulcers)- Timing of SymptomsSudden in Onset?: NoOnset Occurred: ChronicSymptom Duration: Since onset- GeneralTime Seen by Provider: 02/15/24 09:16Review of Systems- ROS StatementsAll systems rev neg: except as marked.Past Medical History - Adult- Past Medical HistoryMedical History: History, Medical (Last Reviewed 04/09/23 @ 21:03 by Ebony Hernandez)CAD (coronary artery disease) (Medical) I25.10Gout (Medical) M10.9HLD (hyperlipidemia) (Medical) E78.5HTN (hypertension) (Medical) [id number] (type 2 diabetes mellitus) (Medical) E11.9TIA (transient ischemic attack) (Medical) G45.9Patient Name: SANDY LAGUERRE Acct: [id number] Unit: [id number] Page 1- Past Surgical HistorySurgical History: History, Surgical (Last Updated 08/08/22 @ 15:05 by Tee Quintana DO)S/P CABG x 2 (Surgical) Z95.1- Family HistoryFamily History: Family History by Member (Last Reviewed 08/08/22 @ 15:05 by Tee Quintana DO)MOTHER CHF (congestive heart failure)FATHER CAD (coronary artery disease)- Nursing NotesStated Complaint: BLISTERS IN MOUTHAllergies/Adverse Reactions: AllergiesAllergy/AdvReac Type Severity Reaction Status Date / TimeNo Known Allergies Allergy Verified 11/30/23 09:42Physical Exam- Free Text PE NotesGENERAL: Well-appearing no distressHEENT: EOMI. Sclerae anicteric, conjunctivae clear. membranes moist and pink. No lesions or exudates. Geographic tongue. Floor of the mouth is soft.No lymphadenopathy. Normal range of motion of the neck.NECK: FROMLUNGS: No audible adventitious lung soundsCOR: Normal heart rate and blood pressureABDOMEN: NondistendedMUSCULOSKELETAL: Moves all extremities equally. No deformity.SKIN: No visible rashNEURO: Awake, alert, oriented x3; no focal motor deficits. Patient is able to relay history.- Initial Vital SignsVital Signs - First Documented: Vital Signs - First DocumentedTemperature 98.5 F 02/15/24 09:37Temperature source Oral 02/15/24 09:37Patient Name: SANDY LAGUERRE Acct: [id number] Unit: [id number] Page 2Pulse 75 02/15/24 09:37Pulse location Antecubital 02/15/24 09:37Pulse source Monitor 02/15/24 09:37Respiratory rate 12 02/15/24 09:37Respiratory source Monitor 02/15/24 09:37Vital signs position Sitting 02/15/24 09:37Blood pressure 176/79 H 02/15/24 09:37Blood pressure location Right arm 02/15/24 09:37Blood pressure source Monitor 02/15/24 09:37Bedside pulse oximetry/SpO2 99 02/15/24 09:37Patient on Room air 02/15/24 09:37Weight 91.4 kg 02/15/24 09:37Weight source Stated/Reported 02/15/24 09:37Body surface area 2.12 02/15/24 09:37Body mass index 30.6 02/15/24 09:37Height 1.73 m 02/15/24 09:37Height source Stated/Reported 02/15/24 09:37Review of Vital Signs: Reviewed, Vital signs normalRe-Evaluation MDM- Free Text MDM NotesText/Dict MDM Notes:68 yo female with painful oral ulcers. Has been ongoing for approximately 1 year. Currently wellappearing, well nourished well hydrated. Has tried fluconazole without improvement as well asOrajel. Reports that the pain response to steroids. Current etiology is unclear, however appearsto be amenable for outpatient follow-up given chronicity as well as clinical exam. Will prescribesteroids as requested by patient in meantime of follow-up with specialists, including ENT as well asDermatology for consideration of further testing. Return indications discussed.Patient Discharge DepartureClinical Impression: Geographic tongueDischarge PlanPatient Name: SANDY LAGUERRE Acct: [id number] Unit: [id number] Page 3- Discharge PlanReason For Visit: BLISTERS IN MOUTHCondition: Good- InstructionsPrescriptions:New Magic Mouthwash 120 mL Suspension 5 ml PO Q6 PRN (Reason: Pain) Qty: 120 RF: 0 Maalox 200 mg-200 mg-20 mg/5 mL oral suspension 40 mL; Diphedryl 12.5 mg/5 mL oral liquid 40mL; Lidocaine Viscous 2 % mucosal solution 40 mL; Per 120 mL Prescription Printed Ordered By: Javi Marquez Last Taken: Unknown prednisone 5 mg/5 mL Solution 10 mg PO DAILY Qty: 60 RF: 0 Please take 40 mg for 4 days, 30 mg for 3 days, 20 mg for 2 days and 10 mg for 1 day. Transmission Status: Received by [id number] Ordered By: Javi Marquez Last Taken: UnknownNo Action alum-mag hydroxide- simeth [Maalox Advanced] 200-200-20 mg/5 mL Suspension 10 ml PO QID PRN (Reason: Abdominal Pain) Qty: 100 RF: 0 administer between meals and at bedtime Ordered By: Shante Le Last Taken: Unknown atorvastatin 80 mg tablet 80 mg PO BEDTIME Last Taken: Unknown beclomethasone dipropionate 40 mcg/actuation Aerosol 40 mcg INHALATION DAILY Last Taken: Unknown carvedilol 6.25 mg Tablet 6.25 mg PO BID Qty: 60 RF: 0 Ordered By: Yudy Reyes Last Taken: Unknown cetirizine 10 mg Tablet 10 mg PO DAILY Last Taken: Unknown ibuprofen 800 mg tablet 800 mg PO TID PRN (Reason: Pain Scale 4- 6) Qty: 15 RF: 0 Ordered By: Ebony Hernandez Last Taken: Unknown ipratropium bromide 0.02 % Solution 0.3 mg INHALATION Q6H Last Taken: Unknown Jardiance 10 mg tablet 10 mg PO DAILY Last Taken: Unknown lidocaine [Lidoderm] 5 % Adhesive Patch,Medicated 1 patch TOPICAL DAILY Qty: 30 RF: 0 leave on most painful area for up to 12 hrs Ordered By: Ebony Hernandez Last Taken: Unknown lisinopril 10 mg tabletPatient Name: SANDY LAGUERRE Acct: [id number] Unit: [id number] Page 4 20 mg PO DAILY Last Taken: Unknown methocarbamol 750 mg tablet 1,500 mg PO Q8H PRN PRN (Reason: Muscle Spasms) Qty: 30 RF: 0 Ordered By: Ebony Hernandez Last Taken: UnknownAdditional Instructions:Please follow-up with your primary care physician for further evaluation of your mouth pain.<Electronically signed by Javi Marquez MD> 02/16/24 0642Patient Name: GUSTABO SANDY CRISTIAN Acct: [id number] Unit: [id number] Page 5 Plan of Treatment Future Tests Future scheduled test information is unavailable Pending Tests Pending diagnostic test information is unavailable Future Visits Future appointment information is unavailable Referrals to Other Providers Reason for Referral Referral Start Date Provider Provider Contact Information Provider Address Christian Florentino MD Work Phone: [phone] [facility] [address] [place] [address] Future Procedures Procedure Name Ordered Date Scheduled Date EKG April 09, 2023 7:56pm Novemb er 2022 7:56pm Notify RT O2 November 30, 2023 9:48am November 30, 2023 9:49am EKG February 29, 2024 9:44am Sept ember 2023 11:45am Future Medications Future medication information is unavailable Patient Instructions ED Shoulder Sprain ED Abdominal Pain Adult ED Constipation (Adult)
--- OUTSIDE RECORDS SUMMARY | 2024-12-30 13:07 | XMS_ITS | Clinical Summary ---
Author Organization [facility] Address [address] [place] [address] Care Team Providers Care Kettle Firer Name Role Phone Philly Lyons APRN Primary Care Provider [phone] Allergies No known active allergies Medications albuterol [...] 25 MG tabletIndications:C oronary artery disease of hopi artery of hopi heart with stable angina pectoris,Chronic HFrEF (heart failure with reduced ejection fraction) Take 1 tablet by mouth Daily. 90 tablet 3 03/28/20 24 Active isosorbide mononitrate (IMDUR) 30 MG 24 hr tabletIndications:C oronary artery disease of hopi artery of hopi heart with stable angina pectoris,Chronic HFrEF (heart failure with reduced ejection fraction) Take 1 tablet by mouth Every Morning. 90 tablet 3 03/28/20 24 Active vitamin D3 125 MCG (5000 UT) capsule capsule Take 1 capsule by mouth Daily. Active valsartan (DIOVAN) 80 MG tabletIndications:C hronic stable angina,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,Chronic HFrEF (heart failure with reduced ejection fraction),Atheroscl erosis of hopi coronary artery of hopi heart without angina pectoris,Hypertensi on, unspecified type [...] and swallow and Diflucan-no improvement Seen at [facility] and diagnosed with geographic tongue Continues [...] artery disease of n ative artery of hopi heart with stable angina pectoris 02/10/2023 Overview (02/10/2023): PCI, CABG x 2 (2002) at [facility] - data deficit [place] (obstructive sleep apnea) 02/10/2023 Overview (02/10/2023): Noncompliant with CPAP Hypothyroidism (acquired) 02/10/2023 Type 2 diabetes mellitus, [facility] long-term current use of insulin 02/10/2023 Overview (02/03/2024): HgbA1c Goal: < 7% Assessment & Plan (02/03/2024 5:07 PM EDT): Patient is not checking blood sugars Currently taking only Jardiance for diabetes Nxmdx-dj-xujk hemoglobin A1c today is 7.6% Microalbumin is [...] to r/o ischemia Pt referred to her respiratory care specialist for f/u Patient verbalizes understanding if she [...] Status post left knee replacement 09/29/2017 02/03/2024 Immunizations Immunization Administration Dates Next Due Fluzone [...] of 2) 01/10/2022 11/15/2021 MAMMOGRAM 10/04/2022 10/04/2020, 050 10/2020, 02/26/2017 ANNUAL WELLNESS VISIT 01/19/2024 10/13/2022 COVID-19 Vaccine (1 - 2023-2 5 season) 2024 DXA SCAN 02/29/2024 02/28/2022, 02/28/2022 HEMOGLOBIN A1C 08/02/2024 02/03/2024, 03/1 12/2023, 08/17/2023, Additional history exists INFLUENZA VACCINE 03/01/2025 06/05/2023, , 06/19/2020, Additional history exists LIPID PANEL 03/31/2025 03/31/2024, 08/2023, 07/29/2023, Additional history exists TDAP/TD VACCINES (2 - Td or Tdap) 02/20/2027 017 COLONOSCOPY 12/31/2032 12/31/2022, 0807/2022, 06/25/2017 COLORECTAL CANCER SCREENING 12/31/2032 HEPATITIS C SCREENING Completed 06/05/2023, 01/05/2 024 Procedures Procedure Name Priority Date/Time Associated Diagnosis Comments LIPID PANEL Routine 03/31/2024 9:31 AM EDT 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 Chronic HFrEF [...] - 200 mg/dL 03/31/2024 7:09 PM EDT [facility] Triglycerides 101 0 - 150 mg/dL 03/31/2024 7:09 PM EDT [facility] HDL Cholesterol 58 40 - 60 mg/dL 03/31/2024 7:09 PM EDT [facility] LDL Cholesterol 110(H) 0 - 100 mg/dL 03/31/2024 7:09 PM EDT [facility] VLDL Cholesterol 18 5 - 40 mg/dL 03/31/2024 7:09 PM T [facility] LDL/HDL Ratio 1.86 03/31/2024 7:09 PM T [facility] Blood Venipuncture / Unknown 03/31/2024 9:31 AM EDT 03/31/2024 9:32 AM EDT [facility] - 03/31/2024 7:09 PM EDT [...] MD LAB BLOOD ORDERABLES Fi nal Result [facility]
[address] [place] [address], * (ABNORMAL) POC Glycosylated Hemoglobin (Hb A1C) (02/03/2024 2:15 PM EDT) Hemoglobin A1C 7.6(A) 4.5 - 5.7 % [facility] Lot Number [id number] [facility] Expiration Date 09/02/2025 [facility] Blood 02/03/2024 2:15 PM EDT Ethel Laguerre BILINGUAL TRAINER POINT OF CARE TEST ABI ORTIZ Final Result [facility]
[address] [place] [address], from Last 3 Months or Most Recently Relevant to Health Maintenance Insurance [id number] [facility] [id number] MEDICARE ADVANTAGE [facility] HMO Care Teams Kettle Firer Relationship Specialty Start Date End Date Philly Lyons APRN [address] [place] [address] PCP - General Nurse Practitioner 03/28/24
--- OUTSIDE RECORDS SUMMARY | 2024-12-30 13:07 | XMS_ITS | Encounter Summary ---
Author Organization [employer] ([place], [place], [place], [place]) Address [address] [place] [address] Care Team Providers Care Field Contractor Name Role Phone Unavailable Primary Care Provider Unavailabl e Encounter Details Date Type Department Care Team (Late st Contact Info) Description 07/06/2018 Transcribed Document [facility] [place] [facility] [place] [address] ProviderAdilson MD [address] [place] [address] Social History Tobacco Use Types Packs/Day Years [...] - Adilson ProviderMD - 07/06/2018 2:46 PM OUTSOLE ROUNDER DATE OF SERVICE: 07/06/2018 SLEEP MEDICINE FOLLOWUP [...] previous DME company did not require any vmd-su-uxzhks expenses. The net result is that she has not kept her equipment up-to-date and she says her filters are old and probably causing congestion. She is little frustrated and says she cannot even afford filters. Her [place] score is 2/24. PHYSICAL EXAMINATION: VITAL SIGNS: [...] machine. She is frustrated because she has lph-lr-uwrmdy expenses with her current DME company and [...] have to continue getting her supplies from [employer]. 3. We explained her to how to use her humidifier, which should help prevent waking up with nasal congestion every morning. 4. I will see her back in 10-12 weeks. Jin Osei M.D. Dict: 07/06/2018 14:46:51 Trans: 07/06/2018 23:24:50 CC1: Jin Osei M.D. CC2: Cirilo Berrios MD Electronically signed by Armando [facility] Conversion Clinical Lab Clerk Cerner at 09/15/2022 9:49 AM CDT documented in this encounter Plan of Treatment Not on file documented as of this encounter Visit Diagnoses Not on filedocumented in this encounter
--- OUTSIDE RECORDS SUMMARY | 2024-12-30 13:07 | XMS_ITS | Clinical Summary ---
Author Organization [employer] ([place], [place]) Address [address] [place] [address] Care Team Providers Care Neurosurgery Physician Name Role Phone Unavailable Primary Care Provider [...]
--- OUTSIDE RECORDS SUMMARY | 2024-12-30 13:07 | XMS_ITS | Encounter Summary ---
Author Organization Healthcare Address [address] [place] [address] Care Team Providers Care Concrete Boom Operator Name Role Phone Cirilo Berrios MD Primary Care Provider [phone] Reason for Visit * Reason Comments Med Refill Encounter Details Date Type Department Care Team (Late st Contact Info) Description 01/15/2024 Refill [facility] [address] [place] [address] Suzanna Vásquez, COMPRESSOR REPAIRER, DNP [address] [place] [address] Social History Tobacco Use Types [...] 07/07/2023 How often do you attend [facility] or orthodox services? 1 to 4 times per year 07/07/2023 Do you belong to any clubs o r organizations such as baptism groups, unions, fraternal or athletic groups, or [...] Recorded Patient Health Questionnaire-2 Score 0 01/06/2024 [facility] - Occupational [...] documented as of this encounter Care Teams Concrete Boom Operator Relationship Specialty Start Date End Date Cirilo Berrios MD [address] [place] [address] PCP - General 10/12/20 documented as of this encounter
--- OUTSIDE RECORDS SUMMARY | 2024-12-30 13:07 | XMS_ITS | Referral Summary ---
Author Organization [employer] ([place], [place], [place]) Address [address] [place] [address] Care Team Providers Care Fashion Artist Name Role Phone Unavailable Primary Care Provider [...]
--- OUTSIDE RECORDS SUMMARY | 2024-12-30 13:07 | XMS_ITS | Clinical Summary ---
Author Organization [facility] Address [address] [place] [address] Care Team Providers Care Cellulose Insulation Helper Name Role Phone Cirilo Tracey MD Primary Care Provider [phone] Allergies No known active allergies Medications nitroglycerin [...] MG SL tabletIndications :Coronary artery disease involving sycuan coronary artery of sycuan heart with angina pectoris (CMS/HCC) Place 1 [...] Asthma 11/15/2019 Coronary artery disease invo lving sycuan heart with angina pectoris 06/17/2019 Gout 06/16/2019 [...] How often do you attend chur or restorationism services? 1 to 4 times per year 07/07/2023 Do you belong to any clubs o r organizations such as restorationism groups, unions, fraternal or athletic groups, or [...] Recorded Patient Health Questionnaire-2 Score 0 01/06/2024 [facility] - Occupational Stress Questionnaire Answer Date [...] place to sleep or slept in a long-term (including now)? No 07/07/2023 PHQ-9 Answer Date [...] 02/26/2017 [facility]-Medicare Annual Wellness (AWV) 10/14/2023 10/13/2022 [id number] Vaccine (1 - 2023- season) 2024 [facility]-Diabetes: [...] POCT Hemoglobin A1C 10.8 <5.7% Non-Diabet ic [facility] Kit Lot Number [id number] [facility] Kit Expiration Date 06/2025 [facility] Blood Venous blood specimen / Unknown 08/17/2023 9:13 AM EDT Cirilo Tracey MD POINT OF CARE TEST ENTER/ED IT ORDERABLES Final Result [facility] [address] [place] [address] * Hepatitis C antibody (06/05/2023 4:01 PM EST) Hepatitis C Antibody Negative Negative 06/05/2023 6:57 PM EST [facility] Blood Venous blood specimen / Unknown Venipuncture / Unknown 06/05/2023 4:01 PM EST 06/05/2023 4:01 PM EST Cirilo Tracey MD LAB BLOOD ORDERABLES Final Result [facility] [address] [place] [address] * Colonoscopy (12/31/2022 4:57 PM EDT) Anatomical [...] Miguel Michael MD Anesthesiologist [place] Endo Brazing Machine Operator Helper Carolyn Willson RN Endo Nurse Parth Arevalo [...] of bowel preparation was evaluated using the [place] Bowel Preparation Scale with scores of: right [...] Soraida ging Narrative 02/28/2022 10:43 AM EDT [facility] - Nephrology, Bone & Mineral Metabolism [address] [place] [address] Patient Name: Isidra Laguerre Patient Age: 66 y.o. Procedure Information: BMD measurement was performed using CoremetricsXA DXA System manufactured by [employer] Techn[employer]: BMD of the axial skeleton was [...] of Service: 10/04/2020 eferring Phy:Cirilo Tracey, MDAccount: [phone] Dictated By: Terrance Falcon M.D. Verified By: [...] femaleDate of Service: 10/04/2020 eferring Phy:Cirilo Tracey, [facility]: [phone] [place] [address] FINAL REPORT PROCEDURE: Tomosynthesis Bilateral Screening - [...] Gender: femaleDate of Service:10/04/2020 eferring Phy:Cirilo Tracey, [facility]: [phone] [place] [address] FINAL REPORT PROCEDURE: Tomosynthesis Bilateral Screening - [...] femaleDate of Service:10/04/2020 eferring Phy:Cirilo Tracey MDAccount: [phone] Dictated By: Terrance Falcon M.D. Verified By: [...] Patient has decision-making capacity? Yes Care Teams Cellulose Insulation Helper Relationship Specialty Start Date End Date Cirilo Tracey MD [address] [place] [address] PCP - General 10/12/20
[2024-12-30] MEDS: SODIUM CHLORIDE 0.9% 10ML SYR (RAD ONLY) 10 ML IV (13:48)
[2024-12-30] MEDS: 0.9 % SODIUM CHLORIDE 50 ML VIAL IV (13:48)
[2024-12-30] MEDS: IOPAMIDOL-370 (76%);100ML BOTTLE 100 ML IV (13:48)
--- NOTE | 2024-12-30 14:00 | CT_ITS ---
FINAL REPORT TECHNIQUE: NASCET technique utilized for stenosis evaluation. CLINICAL HISTORY: Abnl Test, follow up from US, neck pain COMPARISON: None FINDINGS: The origins of the great vessels are difficult to visualize on this examination, secondary to body habitus and the tortuous vasculature. RIGHT CAROTID: There is dense vascular calcification in the proximal internal carotid artery of approximately 70%. LEFT CAROTID: There is dense calcification in the proximal left internal carotid artery, of approximately 50%, and the left external carotid artery is either extremely small or occluded. VERTEBRALS: The vertebrals are patent. No significant stenosis is present. IMPRESSION: Overall exam quality limited secondary to patient body habitus and tortuous vasculature. The origins of the great vessels are difficult to visualize, but no significant stenosis is identified in the proximal right or left carotid arteries. Dense vascular calcification is present in the proximal internal carotid arteries bilaterally, producing approximately 70% stenosis on the right and 50% stenosis on the left. In addition, the left external carotid artery is either extremely small or occluded. Reviewed, Interpreted and Dictated by Andres Madrigal MD Transcribed by Estefany Marr Authenticated and [facility]
== END 2024-12-30 23:59 | disposition home or self-care (01) ==
PROVIDERS: PCP Nurse Practitioner; Visit Provider Nurse Practitioner
DX: I65.23 Occlusion and stenosis of bilateral carotid arteries (principal); R06.09 Other forms of dyspnea; I20.89 Other forms of angina pectoris; R94.39 Abnormal result of other cardiovascular function study; Z95.1 Presence of aortocoronary bypass graft; R00.2 Palpitations; R42 Dizziness and giddiness; R94.31 Abnormal electrocardiogram [ECG] [EKG]; I10 Essential (primary) hypertension; R55 Syncope and collapse; M54.2 Cervicalgia
CPT/HCPCS: 70498; Q9967

== ENCOUNTER 2025-01-04 11:24 | Outpatient (CLI) | payer MEDICARE, MEDICAID, SELFPAY ==
--- OUTSIDE RECORDS SUMMARY | 2024-02-29 09:30 | XMS_ITS | Continuity of Care Document ---
Author Organization [facility]. If a dditional information is needed, contact Health Information Management at [phone] Address [address] [place] [address] Phone Care Team Providers Care Medical Administrative Name Role Phone Unavailable Unavailable Unavailable Unavailable [...] Geographic tongue Onset:15-Feb-2024 Alma Caldwell MD Status:Acute Abdominal pain Onset:30-Nov-2023 Rey Frey PA Status:Acute Gastroesophageal reflux dise ase Onset:30-Nov-2023 Rey HERRING Status:Acute Shoulder strain Onset:10-Apr-2023 Mary Beck Status:Acute Interstitial lung disease Onset:09-Aug-2022 Shital Townsend PA-C Status:Acute Acute asthma Onset:09-Aug-2022 Shital Townsend PA-C Status:Acute History of coronary artery bypass grafting Onset:08-Aug-2022 Mariano Oliveira DO Status:Acute Fatigue Onset:18-Nov-2021 Xin Peña PA Status:Acute Malaise Onset:18-Nov-2021 Xin Peña PA Status:Acute COVID-19 Onset:18-Nov-2021 Xin Peña PA Status:Acute Gout Onset:15-May-2019 Garcia Babar C DO Hyperlipidemia Onset:15-May-2019 Radha Thornee C DO Chest pain Onset:15-May-2019 Garcia Babar C DO Status:Acute Transient cerebral ischemia Onset:15-May-2019 Radha Maguirelie C DO Status:Acute Gout Onset:15-May-2019 Radha Thornee C DO Status:Acute Coronary arteriosclerosis Onset:15-May-2019 Radha Maguirelie C DO Status:Acute Hyperlipidemia Onset:15-May-2019 Radha Thornee C DO Status:Acute Hypertensive disorder Onset:15-May-2019 Radha Thornee C DO Status:Acute Type 2 diabetes mellitus Onset:15-May-2019 Radha Thornee C DO Status:Acute Chest pain Onset:27-Jan-2019 Kobiludinaniapreeti Ebony Status:Acute Dyspnea on exertion Onset:27-Jan-2019 Shital Townsend PA-C Status:Acute Hypertensive urgency Onset:27-Jan-2019 Shital Townsend PA-C Status:Acute Low back pain Onset:01-Feb-2016 [place] Status:Acute Comments:Onset Date: [id number] Coronary arteriosclerosis Onset:10-Aug-2014 Goyo Ritchie Comments:Onset Date: Diabetes mellitus Onset:10-Aug-2014 Radha Eckert C DO Comments:Onset Date: Hypertensive disorder Onset:10-Aug-2014 Radha Eckert C DO Comments:Onset Date: Functional Status Functional [...] Injection;50 ML X1ED Quantity:1 William Monroy DO Start:34-Abt-4986Krg:2023 JCGB968C_WXXG616J;75 ML STAT Quantity:75 William Monroy DO Start:82-Bbg-6211Hqg:2023 Comments:Provider Administration Instructions: Hazardous WasteDispose of package [...] Daily Start:28-Jan-2019 Status:Aborted Comments:50 mg PO DAILY [place] Aspirin;81 MG ORAL Daily Start:28-Jan-2019 Status:Aborted Comments:81 mg PO DAILY carvedilol 3.125 MG Oral Tablet;3.125 MG ORAL Two Times a Day Start:28-Jan-2019 Status:Aborted Comments:3.125 mg PO BID atorvastatin calcium;40 MG ORAL At Bedtime Start:28-Jan-2019 Status:Aborted Comments:40 mg PO BEDTIME [place] Aspirin;81 MG ORAL Daily Start:11-Aug-2014 Status:Aborted Comments:81 mg PO DAILY Aspir 23_NQUS-043-FXH;81 MG ORAL Daily Start:07-Mar-2014 Status:Aborted Comments:81 MG PO DAILY Lybjct_MUAG-33-PRN;50 - 100 ORAL Every 6 Hours as Needed Start:01-Dec-2012 Status:Aborted Comments:50 - 100 MG PO Q6H PRN As Needed for pain Mobic_MELO7.9X77-TWC;7.5 MG ORAL Two Times a Day As Needed Start:01-Dec-2012 Status:Aborted Comments:7.5 MG PO BID PRN As Needed for pain, swelling Procedures EKGResult:[place], [place] [address]Phone: Umoazejwgwesmdnya ReportPatient Name: SANDY LAGUERRE: 1955 Age: 68 Sex: FAcct: [id number] MR#: [id number] Status: DEP ER [facility] Porfirio Thomas of Admission:02/29/24Test Reason : [...] Barker MD TranscribedDate/Time: 02/29/24 1227Technologist: Report ID: [id number] To:Patient Name: SANDY LAGUERRE Acct: [id number] Unit: [id number] Page 1 Date:29-Feb-2024 Status:Completed Abdomen and Pelvis w ConResult:[place] [address] Diagnostic Imaging ReportPatient Name: SANDY LAGUERRE Acct: [id number]: 1955 Age: 68 Sex: F MR#: [id number] Date/Time: 02/29/24 1052 Admit Date/Time:Patient Status: REG ER Ordering Physician: Teresita Diamondtiejohn [facility] Attending Physician:Accession Number(s): [id number](s): Computed Tomography CT Abdomen And Pelvis w conCPT Code(s): 60984UBQJBOIW INDICATION: abd pain TECHNIQUE: Multiple axial CT [...] vessels. Free Fluid:NonePatient Name: SANDY LAGUERRE Acct: [id number] Unit: [id number] Page 1 Musculoskeletal and Body Wall:Multilevel degenerative [...] in OV>02/29/24 1157 Thank you for choosing [facility] Dictated By: NAVARRO Bushictated Date/Time: 02/29/24 1157Transcribed By: Patrica Hart MDTranscribed Date/Time: 02/29/24 1157Technologist: Foreign Delarosa To: Ethel Laguerre NP Report ID: [id number] -End of Report-Patient Name: SANDY LAGUERRE Acct: [id number] Unit: [id number] Page 2 Date:29-Feb-2024 Status:Completed Chest 1 ViewResult:[place] [address] [place] [address] Diagnostic Imaging ReportPatient Name: SANDY LAGUERRE Acct: [id number]: 1955 Age: 68 Sex: F MR#: [id number] Date/Time: 02/29/2445 Admit Date/Time:Patient Status: PRE ER Ordering Physician: Teresita Diamondtiejohn [facility] Attending Physician:Accession Number(s): [id number](s): Radiology XR Chest 1 ViewCPT Code(s): 43938CJBLBPIA INDICATION: chest pain TECHNIQUE: XR Chest 1 [...] in OV>02/29/24 1009 Thank you for choosing [facility] Dictated By: Patrica Hart, MDPatient Name: SANDY LAGUERRE Acct: [id number] Unit: [id number] Page 1Dictated Date/Time: 02/29/24 1009Transcribed By: Patrica Hart MDTranscribed Date/Time: 02/29/24 1009Technologist: Brandie Agudelo To: Ethel Laguerre NP Report ID: [id number] -End of Report-Patient Name: SANDY LAGUERRE Acct: [id number] Unit: [id number] Page 2 Date:29-Feb-2024 Status:Completed EKGResult:[place], [place] [address]Phone: Trukrnrwedeuwqdsq ReportPatient Name: SANDY LAGUERREDOB: 1955 Age: 68 Sex: FAcct: [id number] MR#: [id number] Status: DEP ER [facility] Porfirio Thomas of Admission:02/29/24Test Reason : [...] Barker MD TranscribedDate/Time: 02/29/24 09Technologist: Report ID: [id number] To:Patient Name: SANDY LAGUERRE Acct: [id number] Unit: [id number] Page 1 Date:29-Feb-2024 Status:Completed Social History Smoking Status Ex-smoker Recorded: 14-May-2019 Ex-smoker Recorded: 27-Jan-2019 Results CBC w Automated Differential Ordered On:29-Feb-2024 10:13 Basophils Absolute-Auto0.01K/uL(Normal ) Range:0K/uL-0.04K/uL Basophils Percent-Auto0.1%(Normal) Range:0%-1% Eosinophils Absolute-Auto0.04K/uL(Normal ) Range:0K/uL-0.3K/uL Eosinophils Percent-Auto0.3%(Normal) Range:0%-6% Granulocytes Absolute-Auto10.49K/uL(High) Range:1.4K/uL-7.7K/uL Granulocytes Percent-Auto90.3%(High) Range:43%-83.7% Sbxkkyzzur53.1%(Low) Range:38.9% -44.7% Rgsmateevc85.1g/dL(Low) Range:12 .4g/dL-16.2g/dL Immature Granulocyte s absolute0.04K/uL(Normal) Range:0K/uL-0.08K/uL Immature Granulocyte s percent0.3%(Normal) Range:0%-0.5% Lymphocytes Absolute-Auto0.77K/uL(Low) Range:0.8K/uL-2.9K/uL Lymphocytes Percent-Auto6.6%(Low) Range:9.7%-44.3% Mean Corpuscular Ufbzqmdald12.4pg(Low) Range:27.5pg-33.4pg Mean Corpuscular Hgb Eioucyv07.1g/dL(Low) Range:32g/dL-36g/dL Mean Corpuscular Korinx10.0fL(Low) Range:81fL-96fL Monocytes Absolute-Auto0.28K/uL(Normal ) Range:0.2K/uL-0.8K/uL Monocytes Percent-Auto2.4%(Normal) Range:1.8%-12.7% Mean Platelet Zaufbz85.4fL(Normal) Range:8.5fL-12.1fL Nucleated RBC relati ve auto0.0%(Normal) Range:0%-0.2% Platelet Htfaz007G/uL(Normal) Range:153K/uL-361K/uL Red Blood Cell Count4.95{M/uL}(Normal) Range:4.1{M/uL}-5.3{M/uL} RDW Coefficient of Cymfcvnyq36.8%(High) Range:12%-14.8% White Blood Count11.6K/uL(High) Range:4.8K/uL-10.8K/uL Nucleated RBC absolu te auto0.00K/uL(Normal) Range:0K/uL-0.01K/uL Comprehensive Metabolic Panel Ordered On:29-Feb-2024 10:18 BUN/Creatinine Ratio14.5 Blood Urea Eftsrdzw89ub/dL(Normal) Range:7mg/dL-18mg/dL Mzwnxsxl735pooy/L(High) Range:98 mmol/L-107mmol/L Carbon Uxejbty46ixow/L(Low) Rang e:21mmol/L-32mmol/L Creatinine1.10mg/dL(High) Range: 0.55mg/dL-1.02mg/dL Anion Fzm04ekkq/L(Normal) Range: 5mmol/L-14mmol/L Glom Filtration Rate CKD-EPI 254mL/min Comments:EFFECTIVE JAN 2022, THE LABORATORY HAS CONVERTED TO RGH2151 CKD EPI CREATININE EQUATION FOR ADULTS THAT DOES NOTCONTAIN A RACE FACTOR TO CALCULATE AND REPORT THE eGFRRESULTS. Potassium4.7mmol/L(Normal) Range :3.5mmol/L-5.1mmol/L Dftxyh184jvwo/L(High) Range:136m mol/L-142mmol/L 29-Feb-2024 10:33 Albumin/Globulin Ratio1.1 Albumin3.6g/dL(Normal) Range:3.4 g/dL-5g/dL Alkaline Phosphatase Total73[IU]/L(Normal) Range:46[IU]/L-116[IU]/L Alanine Aminotrans ALT/SGPT27[IU]/L(Normal) Range:14[IU]/L-59[IU]/L Aspartate Aminotrans AST/SGOT21[IU]/L(Normal) Range:15[IU]/L-37[IU]/L Bilirubin Total0.7mg/dL(Normal) Range:0.2mg/dL-1mg/dL Calcium8.8mg/dL(Normal) Range:8. 5mg/dL-10.1mg/dL Globulin3.4g/dL Ijdhkvm769cz/dL(High) Range:74mg /dL-106mg/dL Total Protein7.0g/dL(Normal) Ran ge:6.4g/dL-8.2g/dL Troponin I High Sensitivity Ordered On:29-Feb-20 24 29-Feb-2024 10:33 Troponin I High Vbwuuhcxrud2wh/L(Normal) Range:0ng/L-51ng/L Comments:If the repeat Troponin is rising [...] Peptide Ordered On:29-Feb-2024 10:33 NT-pro B Natriuretic Jwpoycy052va/mL(High) Range:0pg/mL-125pg/mL Lipase Ordered On:29-Feb-2024 10:33 Zdoufw83Y/L(Normal) Range:16U/ L-77U/L Comments:REAGENT CHANGE: PLEASE NOTE NEW [...] Temp36.4c O2 SAT98% Pulse84 Respiratory Rate20 BP Raqtamqw860gw[Hg] BP Wixmlribq09pr[Hg] 29-Feb-2024 09:25 BMI43.6kg/m2 Height4.0325330[ft_us] Lohqqc894.0042832dr 15-Feb-2024 09:37 BMI30.6kg/m2 Temp36.9c O2 SAT99% Pulse75 Respiratory Rate12 BP Vizwtqqy536tv[Hg] BP Tyuzuqmhx20vz[Hg] Height5.3509151[ft_us] Svdamy730.5025lb Encounters pre-admission Encounter Reason:Z12.31 DX: MAMMO SCREENING 30-Mar-2024 11:30 [place] [facility] Encounter Reason:CHEST/ABD PAIN Encounter Diagnosis:CHEST PAIN, UNSPECIFIED,ESSENTIAL (PRIMARY) HYPERTENSION,TYPE 2 DIABETES MELLITUS WITHOUT COMPLICATIONS,ATHSCL HEART DISEASE OF [place] CORONARY ARTERY W/O ANG PCTRS,PRESENCE OF AORTOCORONARY BYPASS GRAFT,CONSTIPATION, UNSPECIFIED 29-Feb-2024 09:24Ru23-Pee-4585 13:30 [place] Discharge Disposition:Discharged to home or self care (routine discharge) William Monroy UP-66-Jmp29-Feb-2024 [place], [place] [address]Phone: ed PHYSICIAN RECORDPatient Name: SANDY LAGUERREB: 1955 Age: 68 Sex: FAcct: [id number] MR#: [id number]: Author: Porfirio Thomas DOPatient Status: REG ER [facility] 02/29/24Report Date/Time: 02/29/24 1106 Report Status: SignedReport#: [id number]-Bko Pain F 40 and Over- Free Text [...] level: No RiskPatient Name: SANDY LAGUERRE Acct: [id number] Unit: [id number] Page 1- Past Medical HistoryMedical History: History, Medical (Last Updated 02/29/24 @ 11:10 by Porfirio Thomas DO)CAD (coronary artery disease) (Medical) I25.10GERD (gastroesophageal reflux disease) (Medical) K21.9Gout (Medical) M10.9HLD (hyperlipidemia) (Medical) E78.5HTN (hypertension) (Medical) H76M2LW (type 2 diabetes mellitus) (Medical) E11.9TIA (transient [...] murmurs or rubsChest:Patient Name: SANDY LAGUERRE Acct: [id number] Unit: [id number] Page 2Gastrointestinal: Normal bowel sounds, nondistended, there [...] 09:46 02/29/24 09:46Patient Name: SANDY LAGUERRE Acct: [id number] Unit: [id number] Page 3Results: Laboratory results within the last [...] (0.0-0.5) %Lymph % (Auto) 6.6 L (9.7-44.3) %[place] % (Auto) 2.4 (1.8-12.7) %Eos % (Auto) 0.3 (0.0-6.0) %Baso % (Auto) 0.1 (0.0-1.0) %Nucleat RBC Rel Count 0.0 (0.0-0.2) %Gran # 10.49 H (1.40-7.70) K/uLLymph # (Auto) 0.77 L (0.80-2.90) K/uLMono # (Auto) 0.28 (0.20-0.80) K/uLEos # (Auto) 0.04 (0.00-0.30) K/uLBaso # (Auto) 0.01 (0.00-0.04) K/uLImmature Gran # (Auto) 0.04 (0.00-0.08) K/uLAbsolute Nucleated RBC 0.00 (0.00-0.01) K/uLPatient Name: SANDY LAGUERRE Acct: [id number] Unit: [id number] Page 4Sodium 146 H (136-142) mmol/LPotassium 4.7 [...] this written report.Patient Name: SANDY LAGUERRE Acct: [id number] Unit: [id number] Page 5Drafted by Patrica Hart MD on [...] (0.0-0.5) %Lymph % (Auto) 6.6 L (9.7-44.3) %[place] % (Auto) 2.4 (1.8-12.7) %Eos % (Auto) 0.3 (0.0-6.0) %Baso % (Auto) 0.1 (0.0-1.0) %Nucleat RBC Rel Count 0.0 (0.0-0.2) %Gran # 10.49 H (1.40-7.70) K/uLLymph # (Auto) 0.77 L (0.80-2.90) K/uLPatient Name: SANDY LAGUERRE Acct: [id number] Unit: [id number] Page 6Mono # (Auto) 0.28 (0.20-0.80) K/uLEos [...] last 24 hrsPatient Name: SANDY LAGUERRE Acct: [id number] Unit: [id number] Page 7Chest X-Ray 02/29/24 09:45IMPRESSION:Chronic changes seen [...] sinus rhythm at 91 beats per minute, AK bxusgqqt756, QRS 76, QTC 423, no acute ST/T [...] sinus rhythm at 91 beats per minute, AK interval 160,QRS 76, QTC 423, no acute ST/T changes. CBC showed a white blood count 31754. Comprehensivemetabolic panel was unremarkable except for a [...] for her constipation.Patient Name: SANDY LAGUERRE Acct: [id number] Unit: [id number] Page 8I have spoken with the patient [...] of Impression: 13:06Patient Name: SANDY LAGUERRE Acct: [id number] Unit: [id number] Page 9- Disposition Decision - Discharge)( Disposition [...] Magic Mouthwash 120 mL SuspensionPatient Name: SANDY LGAUERRE Acct: [id number] Unit: [id number] Page 10 5 ml PO Q6 PRN [...] DO> 02/29/24 1308Patient Name: SANDY LAGUERRE Acct: [id number] Unit: [id number] Page 11 Emergency Encounter Reason:BLISTERS IN MOUTH Encounter Diagnosis:ATHSCL HEART DISEASE OF [place] CORONARY ARTERY W/O ANG PCTRS,PRESENCE OF AORTOCORONARY BYPASS GRAFT,GEOGRAPHIC TONGUE 15-Feb-2024 09:96Hg51-Uzc-8222 09:55 [place] Discharge Disposition:Discharged to home or self care (routine discharge) Alma Caldwell MD-15-Feb-2024 [place], [place] [address]Phone: KI PHYSICIAN RECORDPatient Name: SANDY LAGUERREDOB: 1955 Age: 68 Sex: FAcct: [id number] MR#: [id number]: Author: Javi Marquez MDPatient Status: [facility] 02/15/24Report Date/Time: 02/15/24943 Report Status: SignedReport#: [id number]-Cha Pain F 40 and Over- Free Text HPI Nmefy75-lolr-lti female presenting for evaluation of mouth pain. [...] (Medical) M10.9HLD (hyperlipidemia) (Medical) E78.5HTN (hypertension) (Medical) C04T2HC (type 2 diabetes mellitus) (Medical) E11.9TIA (transient ischemic attack) (Medical) G45.9Patient Name: SANDY LAGUERRE Acct: [id number] Unit: [id number] Page 1- Past Surgical HistorySurgical History: History, [...] Oral 02/15/24 09:37Patient Name: SANDY LAGUERRE Acct: [id number] Unit: [id number] Page 2Pulse 75 02/15/24 09:37Pulse location Antecubital [...] Geographic tongueDischarge PlanPatient Name: SANDY LAGUERRE Acct: [id number] Unit: [id number] Page 3- Discharge PlanReason For Visit: BLISTERS [...] for 1 day. Transmission Status: Received by [id number] Ordered By: Javi Marquez Last [...] 10 mg tabletPatient Name: SANDY LAGUERRE Acct: [id number] Unit: [id number] Page 4 20 mg PO DAILY Last Taken: Unknown methocarbamol 750 mg tablet 1,500 mg PO Q8H PRN PRN (Reason: Muscle Spasms) Qty: 30 RF: 0 Ordered By: Ebony Hernandez Last Taken: UnknownAdditional Instructions:Please follow-up with your primary care physician for further evaluation of your mouth pain.<Electronically signed by Javi Marquez MD> 02/16/24 0642Patient Name: GUSTABO SANDY CRISTIAN Acct: [id number] Unit: [id number] Page 5 Plan of Treatment Future Tests Future scheduled test information is unavailable Pending Tests Pending diagnostic test information is unavailable Future Visits Future appointment information is unavailable Referrals to Other Providers Reason for Referral Referral Start Date Provider Provider Contact Information Provider Address Christian Florentino MD Work Phone: [phone] [facility] [address] [place] [address] Future Procedures Procedure Name Ordered Date Scheduled Date EKG April 09, 2023 7:56pm Novemb er 2022 7:56pm Notify RT O2 November 30, 2023 9:48am November 30, 2023 9:49am EKG February 29, 2024 9:44am Sept ember 2023 11:45am Future Medications Future medication information is unavailable Patient Instructions ED Shoulder Sprain ED Abdominal Pain Adult ED Constipation (Adult)
--- OUTSIDE RECORDS SUMMARY | 2025-01-04 11:28 | XMS_ITS | Patient Health Record ---
Author Organization [address] [place] [address] [place] [address] SURGICAL Address [address] [facility] [address] [place], [place] [id number] Support Name Relationship Address Phone Isidra Laguerre Guarantor Unknown [phone] Reason For Referral No Information Plan Of Treatment No Information Insurance Providers Payer Name Payer Address Payer Phone Subscriber Number Group Number Insured Name Patient Relationship to Insured Coverage Start Date Coverage End Date [employer] O MEDICARE [address] [address] [place], [place] [id number] Isidra Laguerre Self - patient is the insured
--- OUTSIDE RECORDS SUMMARY | 2025-01-04 11:28 | XMS_ITS | Clinical Summary ---
Author Organization [employer] ([place], [place], [place]) Address [address] [place] [address] Care Team Providers Care Jack Frame Tender Name Role Phone Unavailable Primary Care [...]
--- OUTSIDE RECORDS SUMMARY | 2025-01-04 11:28 | XMS_ITS | Clinical Summary ---
Author Organization [facility] Address [address] 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 1 to 4 times per year 07/07/2023 Do you belong to any clubs o r organizations such as restorationist groups, unions, fraternal or athletic groups, or [...] Recorded Patient Health Questionnaire-2 Score 0 01/06/2024 [facility] - Occupational Stress Questionnaire Answer Date Recorded [...] place to sleep or slept in a retirement (including now)? No 07/07/2023 PHQ-9 Answer Date [...] 02/26/2017 [facility]-Medicare Annual Wellness (AWV) 10/14/2023 10/13/2022 [id number] Vaccine (1 - 2023- season) 2024 [facility]-Diabetes: [...] POCT Hemoglobin A1C 10.8 <5.7% Non-Diabet ic [facility] Kit Lot Number [id number] [facility] Kit Expiration Date 06/2025 [facility] Blood Venous blood specimen / Unknown 08/17/2023 9:13 AM EDT Cirilo Tracey MD POINT OF CARE TEST ENTER/ED IT ORDERABLES Final Result [facility] [address] [place] [address] * Hepatitis C antibody (06/05/2023 4:01 PM EST) Hepatitis C Antibody Negative Negative 06/05/2023 6:57 PM EST [facility] Blood Venous blood specimen / Unknown Venipuncture / Unknown 06/05/2023 4:01 PM EST 06/05/2023 4:01 PM EST Cirilo Tracey MD LAB BLOOD ORDERABLES Final Result [facility] [address] [place] [address] * Colonoscopy (12/31/2022 4:57 PM EDT) Anatomical [...] Miguel Michael MD Anesthesiologist [place] Endo Forest Ranger Carolyn Willson RN Endo Nurse Parth Arevalo [...] of bowel preparation was evaluated using the [place] Bowel Preparation Scale with scores of: right [...] ging Narrative 02/28/2022 10:43 AM EDT [facility] - Nephrology, Bone & Mineral Metabolism [address] [place] [address] Patient Name: Isidra Laguerre Patient Age: 66 y.o. Procedure Information: BMD measurement was performed using VeotagXA DXA System manufactured by [employer]: BMD of the axial skeleton was [...] of Service: 10/04/2020 eferring Phy:Cirilo Tracey, MDAccount: [phone] Dictated By: Terrance Falcon M.D. Verified By: [...] to prior imaging studies perf ormed at [facility] on 03/20/2004 and 02/26/2017. FINDINGS: [...] femaleDate of Service: 10/04/2020 eferring Phy:Cirilo Tracey, [facility] [phone] [place] [address] FINAL REPORT PROCEDURE: Tomosynthesis Bilateral Screening - bilateral , Screening Mammogram With Cad - bilateral HISTORY: Patient is 65 years old and is seen for screening mammography. The patient has the following family history of breast cancer: sister, at age 20, breast cancer, specified type unknown. COMPARISON: The present examination has been compared to prior imaging studies performed at [facility] on 03/20/2004 and 02/26/2017. FINDINGS: [...] to prior imaging studies perf ormed at [facility] on 03/20/2004 and 02/26/2017. FINDINGS: [...] Gender: femaleDate of Service:10/04/2020 eferring Phy:Cirilo Tracey, [facility]: [phone] [place] [address] FINAL REPORT PROCEDURE: Tomosynthesis Bilateral Screening - bilateral , Screening Mammogram WithCad - bilateral HISTORY: Patient is 65 years old and is seen for screening mammography. Thepatient has the following family history of breast cancer: sister, at age 20, breast cancer, specified typeunknown. COMPARISON: The present examination has been compared to prior imaging studiesperformed at [facility] on 03/20/2004 and 02/26/2017. FINDINGS: [...] femaleDate of Service:10/04/2020 eferring Phy:Cirilo Tracey MDAccount: [phone] Dictated By: Terrance Falcon M.D. Verified By: [...] Patient has decision-making capacity? Yes Care Teams Assistant Professor Of Religion Relationship Specialty Start Date End Date Cirilo Tracey MD [address] [place] [address] PCP - General 10/12/20
--- OUTSIDE RECORDS SUMMARY | 2025-01-04 11:28 | XMS_ITS | Referral Summary ---
Author Organization [employer] ([place], [place], [place], [place]) Address [address] [place] [address] Care Team Providers Care Senior Benefits Analyst Name Role Phone Unavailable Primary Care Provider [...]
--- OUTSIDE RECORDS SUMMARY | 2025-01-04 11:28 | XMS_ITS | Encounter Summary ---
Author Organization [employer] ([place], [place]) Address [address] [place] [address] Care Team Providers Care Resaw Operator Name Role Phone Unavailable Primary Care Provider Unavailabl e Encounter Details Date Type Department Care Team (Late st Contact Info) Description 07/06/2018 Transcribed Document [facility] [place] [address] ProviderAdilson MD [address] [place] [address] Social History Tobacco Use Types Packs/Day Years [...] - Adilson ProviderMD - 07/06/2018 2:46 PM AUTOMOTIVE CUSTOMER EXPERIENCE ADVISOR DATE OF SERVICE: 07/06/2018 SLEEP MEDICINE FOLLOWUP [...] previous DME company did not require any dzj-qx-skwjzo expenses. The net result is that she has not kept her equipment up-to-date and she says her filters are old and probably causing congestion. She is little frustrated and says she cannot even afford filters. Her [place] score is 2/24. PHYSICAL EXAMINATION: VITAL SIGNS: [...] machine. She is frustrated because she has ixh-lx-fcelcc expenses with her current DME company and [...] have to continue getting her supplies from [employer]. 3. We explained her to how to use her humidifier, which should help prevent waking up with nasal congestion every morning. 4. I will see her back in 10-12 weeks. Jin Osei M.D. Dict: 07/06/2018 14:46:51 Trans: 07/06/2018 23:24:50 CC1: Jin Osei M.D. CC2: Cirilo Berrios MD Electronically signed by Armando [facility] Conversion Tool Planner Cerner at 09/15/2022 9:49 AM CDT documented in this encounter Plan of Treatment Not on file documented as of this encounter Visit Diagnoses Not on filedocumented in this encounter
--- OUTSIDE RECORDS SUMMARY | 2025-01-04 11:28 | XMS_ITS | Encounter Summary ---
Author Organization [facility] Address [address] [place] [address] Care Team Providers Care Doctor Naturopathic Name Role Phone Cirilo Berrios MD Primary Care Provider [phone] Reason for Visit * Reason Comments Med Refill Encounter Details Date Type Department Care Team (Late st Contact Info) Description 01/15/2024 Refill [place] [facility] [address] [place] [address] Suzanna Vásquez, APPLICATION DEVELOPMENT TEAM LEAD, DNP [address] [place] [address] Social History Tobacco Use Types [...] week 07/07/2023 How often do you attend [facility] or yarsanism services? 1 to 4 times per year 07/07/2023 Do you belong to any clubs o r organizations such as synagogue groups, unions, fraternal or athletic groups, or [...] Recorded Patient Health Questionnaire-2 Score 0 01/06/2024 [facility] - [...] place to sleep or slept in a mcc (including now)? No 07/07/2023 PHQ-9 Answer Date [...] documented as of this encounter Care Teams Doctor Naturopathic Relationship Specialty Start Date End Date Cirilo Berrios MD [address] [place] [address] PCP - General 10/12/20 documented as of this encounter
--- OUTSIDE RECORDS SUMMARY | 2025-01-04 11:28 | XMS_ITS | Clinical Summary ---
[facility] Address [address] [place] [address] Care Team Providers Care Supervisor Refining Name Role Phone Philly Lyons APRN Primary Care Provider [phone] Allergies No known active allergies Medications albuterol [...] 25 MG tabletIndications:C oronary artery disease of [place] artery [place] heart with stable angina pectoris,Chronic HFrEF (heart failure with reduced ejection fraction) Take 1 tablet by mouth Daily. 90 tablet 3 03/28/20 24 Active isosorbide mononitrate (IMDUR) 30 MG 24 hr tabletIndications:C oronary artery disease of [place] artery [place] heart with stable angina pectoris,Chronic HFrEF (heart failure with reduced ejection fraction) Take 1 tablet by mouth Every Morning. 90 tablet 3 03/28/20 24 Active vitamin D3 125 MCG (5000 UT) capsule capsule Take 1 capsule by mouth Daily. Active valsartan (DIOVAN) 80 MG tabletIndications:C hronic stable angina,Coronary artery disease of [place] artery [place] heart with stable angina pectoris,Chronic HFrEF (heart failure with reduced ejection fraction),Atheroscl erosis of [place] coronary artery of [place] heart without angina pectoris,Hypertensi on, unspecified type [...] swallow and Diflucan-no improvement Seen at [facility] and diagnosed with geographic tongue Continues [...] artery disease of [place] artery [place] heart with stable angina pectoris 02/10/2023 Overview (02/10/2023): PCI, CABG x 2 (2002) at [facility] - data deficit [place] (obstructive sleep apnea) 02/10/2023 Overview (02/10/2023): Noncompliant with CPAP Hypothyroidism (acquired) 02/10/2023 Type 2 diabetes mellitus, [facility] long-term current use of insulin 02/10/2023 Overview (02/03/2024): HgbA1c Goal: < 7% Assessment & Plan (02/03/2024 5:07 PM EDT): Patient is not checking blood sugars Currently taking only Jardiance for diabetes [id number] hemoglobin A1c today is 7.6% Microalbumin is [...] to r/o ischemia Pt referred to her sap trainer for f/u Patient verbalizes understanding if she [...] 9:31 AM EDT Coronary artery disease of [place] artery [place] heart with stable angina pectoris Chronic HFrEF [...] - 200 mg/dL 03/31/2024 7:09 PM EDT [facility] Triglycerides 101 0 - 150 mg/dL 03/31/2024 7:09 PM EDT [facility] HDL Cholesterol 58 40 - 60 mg/dL 03/31/2024 7:09 PM EDT [facility] LDL Cholesterol 110(H) 0 - 100 mg/dL 03/31/2024 7:09 PM EDT [facility] VLDL Cholesterol 18 5 - 40 mg/dL 03/31/2024 7:09 PM T [facility] LDL/HDL Ratio 1.86 03/31/2024 7:09 PM T [facility] Blood Venipuncture / Unknown 03/31/2024 9:31 AM EDT 03/31/2024 9:32 AM EDT [facility] - 03/31/2024 7:09 PM [...] MD LAB BLOOD ORDERABLES Fi nal Result [facility]
[address] [place] [address], * (ABNORMAL) POC Glycosylated Hemoglobin (Hb A1C) (02/03/2024 2:15 PM EDT) Hemoglobin A1C 7.6(A) 4.5 - 5.7 % [facility] Lot Number [id number] [facility] Expiration Date 09/02/2025 [facility] Blood 02/03/2024 2:15 PM EDT Ethel Laguerre SHELL TRIM TOOL SETTER POINT OF CARE TEST ABI ORTIZ Final Result [facility]
[address] [place] [address], from Last 3 Months or Most Recently Relevant to Health Maintenance Insurance [id number] [facility] [id number] MEDICARE ADVANTAGE [facility] HMO Care Teams Supervisor Refining Relationship Specialty Start Date End Date Philly Lyons APRN [address] [place] [address] PCP - General Nurse Practitioner 03/28/24
[2025-01-04 12:00] LABS: Hematocrit 41.1 % (37.0-47.0); Hemoglobin 13.0 g/dL (12.2-16.2); Immature Granulocytes % 0.2 %; Mean Corpuscular HGB Conc 31.6 g/dL (31.8-35.4); Mean Corpuscular Hemoglobin 27.9 pg (27.0-31.2); Mean Corpuscular Volume 88.2 fl (81-99); Nucleated Red Blood Cells % 0 %; Platelet Count 303 K/mm3 (142-424); Red Blood Count 4.66 M/mm3 (4.20-5.40); Red Cell Distribution Width-SD 46.7 fL; White Blood Count 8.9 K/mm3 (4.8-10.8)
[2025-01-04 12:36] LABS: Chloride 105 mmol/L (98-107); Potassium 4.8 mmoL/L (3.5-5.1); Sodium 135 mmol/L (136-145)
[2025-01-04 12:39] LABS: Anion Gap 9.8 mEq/L (5-15); Blood Urea Nitrogen 25 mg/dl (7-17); Calcium 10.6 mg/dl (8.4-10.2); Carbon Dioxide 25 mmol/L (22.0-30.0); Creatinine,Serum 1.20 mg/dl (0.52-1.04); Estimated Glomerular Filt Rate 44 ml/min (>60); GFR (African American) 54 ML/MIN (>60); Glucose 100 mg/dl (74-100)
[2025-01-04 15:25] LABS: Albumin Level 4.4 g/dl (3.5-5.0)
[2025-01-04 15:28] LABS: Alanine Aminotransferase 17 U/L (12-78); Alkaline Phosphatase 81 U/L (38-126); Aspartate Amino Transferase 27 U/L (14-36); Bilirubin,Direct 0.2 mg/dl (0.0-0.4); Bilirubin,Indirect 0.6 mg/dL (0.0-0.9); Bilirubin,Total 0.8 mg/dl (0.2-1.3); Bilirubin,Unconjugated 0.6 mg/dL (0.0-1.1); Cholesterol 181 mg/dl (140-200); HDL Cholesterol 72 mg/dl (40-60); Total Protein,Serum 6.9 g/dl (6.3-8.2); Triglycerides 125 mg/dl (30-150)
[2025-01-04 17:17] LABS: Hemoglobin A1C 6.5 % (4.0-6.0)
== END 2025-01-04 23:59 | disposition home or self-care (01) ==
PROVIDERS: Nurse Practitioner; PCP Nurse Practitioner; Visit Provider Internal Medicine
DX: E78.49 Other hyperlipidemia (principal); Z95.5 Presence of coronary angioplasty implant and graft; I10 Essential (primary) hypertension; E11.9 Type 2 diabetes mellitus without complications
CPT/HCPCS: 36415; 80048; 80061; 80076; 83036; 85025

== ENCOUNTER 2025-01-24 11:07 | Day surgery (SDC) | payer MEDICARE, MEDICAID, SELFPAY ==
[2025-01-24 11:30] VITALS: BP 99/56; PULSE 77; RESP 18; O2SAT 98; BMI 42.8
[2025-01-24] MEDS: BUPIVACAINE 0.25% 10ML INJ 25 MG IJ (11:44)
[2025-01-24] MEDS: LIDOCAINE 1% 5ML PF VIAL 5 ML (11:46)
[2025-01-24] MEDS: DEXAMETHASONE 10MG/ML 1ML VIAL 10 MG (11:46)
[2025-01-24 11:47] VITALS: BP 108/83; PULSE 72; RESP 18; O2SAT 100
--- NOTE | 2025-01-24 11:49 | EXP.PAIN.PRO ---
Procedure Date: 01/24/25 Time: 11:30 Anesthesiologist:: Gildardo Ferris CRNA Complications:: None Pre-procedure Diagnosis:: Trigger finger left index finger. Trigger finger right ring finger. Post-procedure Diagnosis:: Same Indications for Procedure:: Patient is a pleasant 69-year-old female who comes our clinic today with left index trigger finger and right ring trigger finger. Procedure Details:: Details of the procedure were explained to the patient. The patient taken procedure and placed in the sitting position. The area over the base of the left index finger on the palm side was cleaned using chlorhexidine as a cleansing solution. Using a 27-gauge half inch needle the left index metacarpal phalangeal joint was injected with 1% lidocaine and 2 mg of dexamethasone. The same procedure was carried out over the right ring finger. Patient tolerated procedure without difficulty. There are no complications. Plan and Disposition:: Patient was discharged without incident.
[2025-01-24 11:51] VITALS: BP 99/56; PULSE 77; RESP 18; O2SAT 98
[2025-01-24 12:01] VITALS: BP 99/56; PULSE 77; RESP 18; O2SAT 98
== END 2025-01-24 11:47 | disposition home or self-care (01) ==
PROVIDERS: PCP Nurse Practitioner; Visit Provider Nurse Anesthetist, Certified Registered
DX: M65.322 Trigger finger, left index finger (principal); M65.341 Trigger finger, right ring finger; I10 Essential (primary) hypertension; I25.10 Atherosclerotic heart disease of native coronary artery without angina pectoris; K21.9 Gastro-esophageal reflux disease without esophagitis; E11.9 Type 2 diabetes mellitus without complications; E03.9 Hypothyroidism, unspecified; Z87.891 Personal history of nicotine dependence
CPT/HCPCS: 26055 ×2; J0665; J1100; J2003